=== PATIENT | male | born 1930 | race Caucasian/White ===

== ENCOUNTER → 2016-10-29 | Outpatient (CLI) | payer OTHER, BC | LOC: EDBD → BHFA 13:45 | PROVIDERS: ATTEND Internal Medicine Cardiovascular Disease | DX: I48.92 Unspecified atrial flutter (principal); I50.30 Unspecified diastolic (congestive) heart failure; I10 Essential (primary) hypertension; E78.5 Hyperlipidemia, unspecified ==

== ENCOUNTER → 2016-10-31 | Outpatient (CLI) | payer OTHER, BC | LOC: EDBD → BHFA 13:00 | PROVIDERS: ATTEND Internal Medicine Interventional Cardiology | DX: Z01.818 Encounter for other preprocedural examination (principal); I48.91 Unspecified atrial fibrillation | CPT/HCPCS: 78452; 93017; A9500; J2785 ==

== ENCOUNTER 2016-11-05 05:45 | Inpatient (IN) | payer OTHER, BC ==
--- NOTE | 2016-10-28 14:08 | GHP ---
[f rep st] PREOP HISTORY AND PHYSICAL DATE OF ADMISSION: 11/05/2016 He will be an a.m. admission for surgery on November 25, 2016. PROBLEM: Posttraumatic right hip arthritis. HISTORY OF PRESENT ILLNESS: The patient is 86 years old. He fell in May of 2015 and sustained a right pelvic fracture and a displaced right olecranon fracture. I operated on his right olecrano n fracture in June of 2015. There was an initial hardware failure and nonunion of the olecranon fracture. I had to reoperate, but eventually the fracture has healed. 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 This is very pain ful. I have put off doing surgery because of his age and overall medical condition. However, he is in a lot of pain which is affecting his ability to walk. He and his family have decided to go [facility] with a right total hip arthroplasty even though there is significant medical risk. PAST MEDICAL HISTORY: He is treated for gout and elevated cholesterol. He has type 1 diabetes. He has a pacemaker. He has had a mitral valve replacement. No history of cardiac stents, DVT, or hep atitis. He has sleep apnea and uses a CPAP machine. He has had bilateral total knee replacements. CURRENT MEDICATIONS: Allopurinol, omeprazole, simvastatin, Lantus SoloSTAR insulin, Pertzye, piogli tazone for diabetes. He takes long-acting metoprolol to control his heart rate and also for blood p ressure. He has been on 1 baby aspirin a day although he is stopping that in preparation for his [place] rgery. DRUG ALLERGIES: None. METAL ALLERGY: None. LATEX ALLERGY: None. SOCIAL HISTORY: The patient does not smoke cigarettes or drink alcohol. He is retired. He lives w ith his and daughter in their own home. PHYSICAL EXAMINATION: VITAL SIGNS: Height is 5 feet, weight 162 pounds, BMI 31.6. EYES: Conjunct ivae and sclerae are clear. He has had cataract surgery bilaterally. MOUTH: He has a partial uppe r denture and a full lower denture. CHEST: Clear. HEART: Regular rhythm. No murmurs. EXTREMITI ES: Pertinent findings limited to his right hip. He only had about 70 degrees of hip flexion, 20 d egrees of external rotation, internal rotation 0 degrees. IMAGING PROCEDURE: Recent films show a healed acetabular fracture. He has very severe erosion of h is femoral head. He only has about 1/3 of the femoral head remaining. He is approximately [address] There is some erosion of the superior acetabulum. IMPRESSION ON ADMISSION: 1. Status post right pelvic fracture with severe posttraumatic degenerative arthritis of his right hip. 2. Treatment for gout. 3. Insulin-dependent diabetes. 4. He has a pacemaker. 5. He has had a mitral valve replacement. 6. Sleep apnea. PLAN: He will undergo a right total hip arthroplasty. The surgery has been discussed with the zee ent and with members of his family multiple times over the past 12 months. He has severe pain which is limiting his quality of life and his ability to walk. I have explained to them that there are s ubstantial medical risks associated with the surgery. He feels like he is willing to accept the ris ks in order to get a less painful and more functional hip joint. All their questions have been answ ered, and he consents to surgery. /[id number]/MODL
[2016-11-05] MEDS ORDERED: DEXAMETHASONE 4 MG/ML VIAL IVP ONE (06:00)
[2016-11-05] MEDS ORDERED: TRANEXAMIC ACID IV ONE (06:00)
[2016-11-05] MEDS ORDERED: FAMOTIDINE 20 MG TAB PO ONE (06:00)
[2016-11-05] MEDS ORDERED: POVIDONE-IODINE 20 ML in SODIUM CL IRRIG SOLUTION 500 ML IRR ONE (06:00)
[2016-11-05] MEDS ORDERED: CEFAZOLIN 2 GM/DEXTR 100 ML IV ONE (06:00)
[2016-11-05] MEDS ORDERED: ACETAMINOPHEN 325 MG TAB PO ONE (06:00)
[2016-11-05] MEDS ORDERED: NS IV ONE (06:00)
[2016-11-05] MEDS ORDERED: CHLORHEXIDINE GLUC HIBICLENS 118 ML BTL TP ONE (06:00)
[2016-11-05] MEDS ORDERED: ROPI/epiNEPH/KETOROLAC JOINT COCKTAIL IU ONE (06:00)
[2016-11-05] MEDS ORDERED: LR 1,000 ML IV ONE (06:26)
[2016-11-05] MEDS ORDERED: LIDOCAINE 1% 5 ML SDV ID PRN (06:26)
[2016-11-05] MEDS ORDERED: ceFAZolin 1 GM/5 ML SYR ONE (06:52)
[2016-11-05] MEDS ORDERED: PROPOFOL 200 MG/20 ML VIAL ONE ×2 (07:29→08:37)
[2016-11-05] MEDS ORDERED: LIDOCAINE 2% 100 MG/5 ML SYR ONE (07:30)
[2016-11-05] MEDS ORDERED: PHENYLEPHRINE HCL 100 MCG/ML SYR ONE (07:51)
--- NOTE | 2016-11-05 09:28 | POSTOPPROG ---
Post Op Note Date of Operation: 11/05/16 Surgeon: Darwin Mercado Radio Frequency Technician: Bryce Anesthesiologist: Spike Anesthesia: IV Sedation, Spinal Post-op Diagnosis: right hip arthritis Procedure: R MARTINE Inf/Abcess present in the surg proc area at time of surgery?: No EBL: 100-500
[2016-11-05] MEDS ORDERED: METOCLOPRAMIDE 10 MG/2 ML VIAL IVP PRN (09:41)
[2016-11-05] MEDS ORDERED: oxyCODONE IR 5 MG TAB PO PRN (09:41)
[2016-11-05] MEDS ORDERED: BISACODYL 10 MG SUPP PR PRN (09:41)
[2016-11-05] MEDS ORDERED: PHARMACY PAIN CONSULT 1 EA MISC PRN (09:41)
[2016-11-05] MEDS ORDERED: ONDANSETRON DISINTEGRATING 4 MG TAB PO PRN (09:41)
[2016-11-05] MEDS ORDERED: diphenhydrAMINE 25 MG CAP PO PRN (09:41)
[2016-11-05] MEDS ORDERED: POLYETHYLENE GLYCOL 3350 17 GM PKT PO PRN (09:41)
[2016-11-05] MEDS ORDERED: CYCLOBENZAPRINE 10 MG TAB PO PRN (09:41)
[2016-11-05] MEDS ORDERED: PROMETHAZINE HCL 25 MG SUPPR PR PRN (09:41)
[2016-11-05] MEDS ORDERED: MAGNESIUM HYDROXIDE 30 ML UDCUP PO PRN (09:41)
[2016-11-05] MEDS ORDERED: LACTULOSE 20 GM/30 ML UDCUP PO PRN (09:41)
[2016-11-05] MEDS ORDERED: ONDANSETRON 4 MG/2 ML VIAL IVP PRN (09:41)
[2016-11-05] MEDS ORDERED: NS 500 ML IV PRN (09:41)
[2016-11-05] MEDS ORDERED: DIPHENOXYLATE/ATROPINE LOMOTIL 1 TAB PO PRN (09:41)
[2016-11-05] MEDS ORDERED: traMADol 50 MG TAB PO PRN (09:41)
[2016-11-05] MEDS ORDERED: TEMAZEPAM 15 MG CAP PO PRN (09:41)
--- NOTE | 2016-11-05 09:52 | SOAPPROG ---
SOAP Progress Note Assessment/Plan: Assessment: Dr. Hendricks will follow and manage DM. To [facility] on Fri. Plan: 11/05/16 09:52 Objective: Laboratory Results 11/05/16 07:01 ICD10 Worksheet Patient Problems: Problems Problem Status Onset Osteoarthritis of right hip Acute Chronic Disease Management/Transitional Care Program Active Closed right acetabular fracture Acute Fall on same level from tripping as cause of accidental injury Acute Fracture of right olecranon process Acute Pelvic fracture Acute
[2016-11-05] MEDS ORDERED: LR 1,000 ML IV SCH (10:00)
--- NOTE | 2016-11-05 10:50 | GOP ---
[f rep st] OPERATIVE REPORT DATE OF OPERATION: 11/05/2016 SURGEON: Darwin Mercado MD FIRE CONTROL TECHNICIAN B: JEFF Han. Bereket Diaz CFA. ANESTHESIA: Combination of Marcaine spinal and IV sedation. ANESTHESIOLOGIST: Franky Lala MD. PREOPERATIVE DIAGNOSIS: Right hip severe posttraumatic arthritis. POSTOPERATIVE DIAGNOSIS: Right hip severe posttraumatic arthritis. PROCEDURE PERFORMED: Right total hip arthroplasty, cobalt-chrome head on highly cross-linked polyet hylene cup liner, cemented stem. FINDINGS: DESCRIPTION OF PROCEDURE: The patient was given 2 g of IV Ancef preoperatively within 60 minutes of surgery. He also received IV tranexamic acid at a dose of 20 mg/kg. He was placed on the operatin g room table and given spinal anesthesia with Marcaine by Dr. Lala. He was then placed supine a nd given IV sedation. A Caceres catheter was not used. He wore a NASRIN stocking and SCD on the nonoper ative leg. He has chronic leg edema bilaterally. He was rolled to the left lateral decubitus posit ion. The position was secured with the pegboard table attachment. An axillary roll was used, and a ll pressure points were carefully padded. I was careful to lock his pelvis in a rigid vertical posi tion. His perineum was isolated with plastic adhesive drapes. The right hip and right lower extrem ity were prepped with ChloraPrep. They were draped free using sterile sheets, stockinette, and Ioba n plastic drape. I wrapped his right lower extremity with a 6-inch Ken wrap from the midthigh to th e foot. The World Health Organization time-out was performed to verify the correct surgical side and site an d the correct patient identity. The Hoven time-out was also performed. I made a 5-inch straight oblique posterolateral hip skin incision. Subcutaneous tissues were sharpl y divided, and hemostasis was obtained using electrocautery. His subcutaneous tissues were very abad matous and watery. He also bled considerably more than average. His fascia adriana was identified and split along the axis of its fibers. I curved posteriorly and proximally, and split the fascia of t he gluteus libia, and bluntly split the muscle fibers in line with their orientation. The Charnle y self-retaining retractor was inserted. His sciatic nerve was located, partially exposed, and prot ected throughout the procedure. The external rotators were difficult to identify. There was quite a bit of deformity from his previous fracture. He had significant erosion of his femoral head, and the whole femoral head and neck had migrated proximally. I was able to release the external rotator s as a single layer and tagged them and reflected posteriorly. His capsule was shortened and deform ed and could not be preserved. A smooth inch Steinmann pin was inserted vertically into the ilium, superior to the acetabulum. A 1/8-inch drill bit was inserted vertically into the greate r trochanter and parallel to the first pin. The distance between the 2 was measured for leg length reference. His femoral head was dislocated posteriorly. About 2/3 of his femoral head had been ero ded away. The femoral neck was osteotomized at the appropriate level and inclination. The remnant of his labrum was excised. There was a lot of granulation tissue and scar tissue in his acetabulum. He had a previous pelvic fracture, which involved the medial wall of his acetabulum. It appeared that fracture had healed. I prepared the femur first. This allowed me to bowling alley mechanic the amount of natural femoral neck anteversion . He had approximately 10-12 degrees of natural femoral neck anteversion. The canal was opened lat erally with a box chisel. I reamed and broached sequentially up to a size 14. I used a size 14 bro ach as a trial stem. I was careful to lateralize adequately. Appropriate retractors were inserted to expose the acetabulum. The acetabulum was reamed sequential ly up to 53 mm. I selected a 54 mm Khan and Nephew R3 cluster hole hemispherical shell. This was tapped securely into place in the proper degree of inclination and anteversion. I used the transver se acetabular ligament and other acetabular bony landmarks to help me properly orient the cup. I in serted 30 mm and a 25 mm supplemental fixation screws through the superior aspect of the acetabular shell. The third hole in the shell was filled with the friction fit dome hole cover. I also insert ed a screw in the dome hole plug for the insertion hole. I performed a series of trial reductions to determine length and stability. I concluded that the si ze 14 stem with the -3 mm neck length, with a 36 mm head and a 20-degree lip liner gave me the prope r combination of appropriate length and good anterior and posterior stability. He was 20-25 mm shor t preoperatively, and I was intentionally lengthening him. Lengthening him also created excellent s tability. The 20-degree lip Khan and Nephew R3 highly cross-linked polyethylene cup liner was inserted and ta pped securely into place. I chose the Khan and Nephew Synergy stem in a size 14. The canal was pr epared for cementing. It was thoroughly cleaned with pulsating lavage. A distal cement restrictor was inserted. The canal was packed with epinephrine-soaked sponge. A double batch of methylmethacr ylate cement with tobramycin was mixed. While it was still in a semi-liquid state, it was injected into the canal and pressurized. At the proper consistency, the size 14 Synergy cement stem was inse rted, and tapped securely into place. It was held in the proper position while the cement hardened. Excess cement was removed before it hardened. I did 1 final trial reduction with a -3 neck length, and concluded that was the proper length. The 36 mm Oxinium head with a -3 mm neck length was tapped securely onto the clean trunnion. The acetab ulum was irrigated and cleaned, and the hip was reduced 1 final time. He had excellent anterior and posterior stability and appropriate lengthening. 40 mL of the joint anesthetic cocktail were injected into the capsule, the deep musculature, and the subcutaneous tissues around the skin edges. The joint was thoroughly irrigated 1 final time with a dilute Betadine solution. The external rotators were repaired with #[address] ill holes in the greater trochanter. This provided a reasonably strong external rotator repair. I used a couple of #2 [id number] FiberWire sutures on the fascia adriana, followed by a running #2 b arbed Ethicon Stratafix PDO suture. The subcutaneous tissues were closed with a running 0 barbed Et hicon Stratafix Monoderm suture. The skin was closed with a running 3-0 barbed Ethicon Stratafix Mo noderm subcuticular suture. The skin edges were reapproximated and sealed with Dermabond glue. The wound was covered with a strip of Telfa, and everything was held in place with a piece of clear isael stic Tegaderm. A long leg NASRIN stocking was applied to his right lower extremity. He wore a stocking and SCD on the opposite leg during the procedure. An abduction pillow was placed between his knees. He was awake álvaro from anesthesia and rolled to the supine position on his [facility]. He was taken to PACU in satisfactory condition. There were no recognized intraoperative complications. The estimated bl ood loss was at least 500 mL. Throughout the procedure, he bled more than typical. I used a Khan and Nephew R3 hemispherical cluster hole acetabular shell with an outside diameter of 54 mm. The liner was a Khan and Nephew 20-degree lipped highly cross-linked liner with an inside diameter of 36 mm. The femoral component was a cemented Khan and Nephew standard offset Synergy st em in size 14. The femoral head was a Khan and Nephew Oxinium head with a -3 mm neck length and a 36 mm outside diameter. Yrn Wilkinson and Bereket Diaz acted as surgical assistants. Their assistance was a marko pollard. /[id number]/MODL
[2016-11-05] MEDS ORDERED: LIPASE PO SCH (12:00)
[2016-11-05] MEDS ORDERED: AMYLASE PO SCH (12:00)
[2016-11-05] MEDS ORDERED: PROTEASE PO SCH (12:00)
[2016-11-05] MEDS: PIOGLITAZONE HCL 15 MG TAB PO SCH (12:50)
[2016-11-05] MEDS: ACETAMINOPHEN 325 MG TAB PO SCH ×2 (12:50→17:57)
[2016-11-05] MEDS: TRANEXAMIC ACID 650 MG TAB PO SCH ×2 (14:11→22:06)
[2016-11-05] MEDS: ceFAZolin 2 GM/DEXTROSE 100 ML IV SCH ×2 (14:11→20:57)
[2016-11-05 17:00] LABS: HEMATOCRIT 28.5 % (40.0-51.0); HEMOGLOBIN 9.4 g/dL (13.7-17.5)
[2016-11-05] MEDS ORDERED: D50W 25 GM/50 ML SYR IVP PRN (17:47)
[2016-11-05] MEDS: INSULIN LISPRO 100 UNIT/ML SC SCH (17:57)
[2016-11-05] MEDS: PANCREAZE PO SCH (17:58)
--- NOTE | 2016-11-05 19:04 | SOAPPROG ---
SOAP Progress Note Assessment/Plan: Assessment:POst op GREER from fractured acetabulum plus aseptic necrosis of femoral head. AODM, ASCVD, Renal insufficincy. Dong very well. Plan: MOnitor glucose tonight. Recheck labs in AM. To SNF soon. 11/05/16 19:02 POst op Subjective: Doing well post op. COncerned about his blood sugar being too high. Objective: Vital Signs Temp Pulse Resp BP Pulse Ox 36.6 C 69 18 106/61 99 11/05/16 15:52 11/05/16 15:52 11/05/16 15:52 11/05/16 15:52 11/05/16 15:52 Laboratory Results 11/05/16 16:40 11/05/16 07:01 11/04/16 11/05/16 11/06/16 05:59 05:59 05:59 Intake Total 1988 Output Total 775 Balance 1213 Lungs clear. Oxygen sat good. COR RRR. No significant ankle edema beyond baseline. Glucose a bit up, sliding scale initiated ICD10 Worksheet Patient Problems: Problems Problem Status Onset Osteoarthritis of right hip Acute Chronic Disease Management/Transitional Care Program Active Closed right acetabular fracture Acute Fall on same level from tripping as cause of accidental injury Acute Fracture of right olecranon process Acute Pelvic fracture Acute
[2016-11-05] MEDS: FERROUS SULFATE 325 MG TAB PO SCH (20:57)
[2016-11-05] MEDS: ALLOPURINOL 100 MG TAB PO SCH (20:57)
[2016-11-05] MEDS: FAMOTIDINE 20 MG TAB PO SCH (20:57)
[2016-11-05] MEDS: SENNOSIDES/DOCUSATE SODIUM TAB PO SCH (20:57)
[2016-11-05] MEDS: ASCORBIC ACID 250 MG TAB PO SCH (20:57)
[2016-11-05] MEDS: ASPIRIN 325 MG TAB PO SCH (22:06)
[2016-11-06] MEDS: ACETAMINOPHEN 325 MG TAB PO SCH ×3 (01:26→11:50)
[2016-11-06 05:06] LABS: HEMATOCRIT 26.8 % (40.0-51.0); HEMOGLOBIN 8.9 g/dL (13.7-17.5); MEAN CELL HEMOGLOBIN 35.7 pg (27.9-34.1); MEAN CELL HEMOGLOBIN CONCENTR. 33.2 g/dL (32.4-36.7); MEAN CELL VOLUME 107.6 fL (81.5-99.8); RED BLOOD CELL COUNT 2.49 10^6/uL (4.40-6.38); RED CELL DISTRIBUTION WIDTH 16.7 % (11.5-15.2)
[2016-11-06 05:29] LABS: ALANINE AMINOTRANSFERASE 25 IU/L (21-72); ALBUMIN 2.3 g/dL (3.5-5.0); ALKALINE PHOSPHATASE 177 IU/L (38-126); ANION GAP 8 mEq/L (8-16); ASPARTATE AMINOTRANSFERASE 28 IU/L (17-59); BILIRUBIN,TOTAL 0.4 mg/dL (0.1-1.4); CALCIUM 7.9 mg/dL (8.5-10.4); CARBON DIOXIDE 19 mEq/l (22-31); CHLORIDE 106 mEq/L (97-110); CREATININE 2.2 mg/dL (0.7-1.3); GLOMERULAR FILTRATION RATE 28; GLUCOSE 176 mg/dL (70-100); POTASSIUM 4.7 mEq/L (3.5-5.2); SODIUM 133 mEq/L (134-144); TOTAL PROTEIN 4.9 g/dL (6.3-8.2)
[2016-11-06] MEDS: PANCREAZE PO SCH ×2 (08:19→11:50)
[2016-11-06] MEDS: SENNOSIDES/DOCUSATE SODIUM TAB PO SCH (08:19)
[2016-11-06] MEDS: PIOGLITAZONE HCL 15 MG TAB PO SCH (08:19)
[2016-11-06] MEDS: ASCORBIC ACID 250 MG TAB PO SCH (08:19)
[2016-11-06] MEDS: TRANEXAMIC ACID 650 MG TAB PO SCH (08:19)
[2016-11-06] MEDS: FAMOTIDINE 20 MG TAB PO SCH (08:20)
[2016-11-06] MEDS: FERROUS SULFATE 325 MG TAB PO SCH (08:20)
[2016-11-06] MEDS: INSULIN LISPRO 100 UNIT/ML SC SCH ×2 (08:20→11:51)
[2016-11-06] MEDS: ASPIRIN 325 MG TAB PO SCH (08:20)
[2016-11-06] MEDS: ALLOPURINOL 100 MG TAB PO SCH (08:20)
[2016-11-06] MEDS ORDERED: MULTIVITAMINS 1 EACH TAB PO SCH (09:00)
[2016-11-06] MEDS ORDERED: METOPROLOL SUCCINATE XR 25 MG TAB PO SCH (09:00)
[2016-11-06] MEDS ORDERED: PANTOPRAZOLE SODIUM 40 MG TAB PO SCH (09:00)
[2016-11-06] MEDS ORDERED: INSULIN GLARGINE 100 UNITS/ML SYRINGE SC SCH (09:00)
[2016-11-06] MEDS ORDERED: PRAVASTATIN SODIUM 20 MG TAB PO SCH (09:00)
[2016-11-06] MEDS ORDERED: NON-FORMULARY NEW DRUG (Omeprazole [Omeprazole] 20 MG) PO SCH (09:00)
[2016-11-06] MEDS ORDERED: NON-FORMULARY NEW DRUG (Simvastatin [Simvastatin] 10 MG) PO SCH (09:00)
[2016-11-06] MEDS ORDERED: MAGNESIUM OXIDE 400 MG TAB PO SCH (09:00)
--- NOTE | 2016-11-06 10:44 | SOAPPROG ---
SOAP Progress Note Assessment/Plan: Assessment: Dr. Hendricks will follow and manage DM. To [facility] on Fri. Plan: 11/05/16 09:52 11/06/16 10:43 Afebrile. Awake and alert. Up and chair. Taking a few steps around the room. Using urinal. H/H low but he is stable. Wound is dry. Sciatic nerve intact. Films look good. P: to [facility] today. Continue PT Objective: Vital Signs Temp Pulse Resp BP Pulse Ox 36.9 C 75 14 113/61 94 11/06/16 07:33 11/06/16 08:20 11/06/16 07:33 11/06/16 08:20 11/06/16 07:33 Laboratory Results 11/06/16 04:55 11/06/16 04:55 11/05/16 11/06/16 11/07/16 05:59 05:59 05:59 Intake Total 1988 Output Total 1200 Balance 788 ICD10 Worksheet Patient Problems: Problems Problem Status Onset Osteoarthritis of right hip Acute Chronic Disease Management/Transitional Care Program Active Closed right acetabular fracture Acute Fall on same level from tripping as cause of accidental injury Acute Fracture of right olecranon process Acute Pelvic fracture Acute
--- NOTE | 2016-11-06 10:52 | PDIAF ---
- Diagnosis Diagnosis: right MARTINE Code Status: Full Code - Medication Management Discharge Medications: Medications to Continue on Transfer Magnesium Oxide 400 mg PO DAILY 08/06/11 [Last Taken 10/22/16] Omeprazole 20 mg PO DAILY 08/06/11 [Last Taken 11/05/16] Simvastatin 10 mg PO DAILY 08/06/11 [Last Taken 11/03/16] Diclofenac Sodium [Voltaren Gel (*)] 1 clarissa TP DAILY PRN 06/13/15 [Last Taken 08/16] Lipase/Protease/Amylase [Jaquelin Rojas 16,000 Units Caps] 1 cap PO TIDMEAL [Last Taken 10/22/16] Metoprolol Succinate Xr [Toprol Xl 25 mg (*)] 25 mg PO DAILY 06/13/15 [Last Taken 11/05/16 05:00] Pioglitazone HCl [Actos 15mg (*)] 15 mg PO DAILY 06/13/15 [Last Taken 11/04/16] traMADol [Ultram 50 mg (*)] 50 mg PO Q6 PRN #0 tab 06/18/15 [Last Taken 11/04/16 ] Acetaminophen [Tylenol ES 500 mg (*)] 1,000 mg PO BID 10/03/16 [Last Taken 11/04] Allopurinol [Allopurinol 100 MG (*)] 100 mg PO BID 10/03/16 [Last Taken 04:30] Ascorbic Acid [Vitamin C 250 mg (*)] 250 mg PO BID 10/03/16 [Last Taken 11/04/16 ] Aspirin [Aspirin 81mg (*)] 81 mg PO DAILY 10/03/16 [Last Taken 11/05/16 04:30] Docusate Sodium [Colace 100 MG (*)] 100 mg PO BID PRN 10/03/16 [Last Taken 11/04] Ferrous Sulfate [Ferrous Sulf 325 MG (*)] 325 mg PO BID 10/03/16 [Last Taken 01/13] Insulin Glargine [Lantus 100 UNITS/ML (*)] 10 units SC DAILY 10/03/16 [Last Taken 11/05/16 05:00 7 units SQ] Multivitamins [Multivitamin (*)] 1 each PO DAILY 10/03/16 [Last Taken 10/22/16] Discharge Medications: Refer to the Discharge Home Medication list for PRN reason. - Orders Diet Recommendation: ADA 1800 consistent carb - Follow Up Care Current Providers and Referrals: Semaj Hendricks MD [Primary Care Provider] - Darwin Mercado MD [Medical Doctor] - 11/28/16 11:50 am
--- NOTE | 2016-11-06 10:57 | GDS ---
[f rep st] DISCHARGE SUMMARY ADMISSION DIAGNOSIS: Right hip severe posttraumatic arthritis. DISCHARGE DIAGNOSIS: Right hip severe posttraumatic arthritis. OPERATION PERFORMED: 11/05/2016, a right total hip arthroplasty. POSTOPERATIVE COMPLICATIONS: None. CONDITION ON DISCHARGE: Improved. DESCRIPTION OF HOSPITAL COURSE: The patient was admitted to the hospital on the morning of surgery. His admission white blood cell count was 5650. H and H 11.0 and 33.8. Platelet count 150,000. T he same day, under a combination of Marcaine, spinal anesthesia and IV sedation, he underwent a righ t total hip arthroplasty. I used a cemented femoral component. Postoperatively, he was treated wit h multimodal DVT prophylaxis, including rapid mobilization and aspirin. On the first postoperative day, his hemoglobin and hematocrit were 8.9 and 26.8. He was seen by Physical Therapy, and he did r easonably well with ambulation. By the time of discharge, he was afebrile, and his wound was clean and dry. DISPOSITION: The patient is transferred to [facility]. He may progress to full weightbearing on the right as tolerated. Use an abduction pillow in bed for 3 weeks. He will continue to use Tylenol for pain control. Use NASRIN stockings for 1 week. I will see him back in [facility] office on November 28, 2016. If there are any problems, he is to call me at the office. /[id number]/MODL
[2016-11-06 11:19] VITALS: BP 111/47; PULSE 81; RESP 16; TEMP 98.2; O2SAT 99
--- NOTE | 2016-11-06 12:31 | SOAPPROG ---
SOAP Progress Note Assessment/Plan: Assessment:POst op GREER from fractured acetabulum plus aseptic necrosis of femoral head. AODM, ASCVD, Renal insufficincy. Dong very well. Hemoglobin reduced but adequete, transfusion not required. Plan: To [facility] today. Follow labs at [facility] 11/05/16 19:02 POst op 11/06/16 12:32 Subjective: Doing very well. Pain is controlled although noticeable. Appetite good. Objective: Vital Signs Temp Pulse Resp BP Pulse Ox 36.8 C 81 16 111/47 L 99 11/06/16 11:18 11/06/16 11:18 11/06/16 11:18 11/06/16 11:18 11/06/16 11:18 Laboratory Results 11/06/16 04:55 11/06/16 04:55 11/05/16 11/06/16 11/07/16 05:59 05:59 05:59 Intake Total 1988 Output Total 1200 Balance 788 Lungs clear to asc. COR RRR. Edema stable. HGB acceptable at 8.9. Lytes and CR stable. Glucose under reasonable control ICD10 Worksheet Patient Problems: Problems Problem Status Onset Osteoarthritis of right hip Acute Chronic Disease Management/Transitional Care Program Active Closed right acetabular fracture Acute Fall on same level from tripping as cause of accidental injury Acute Fracture of right olecranon process Acute Pelvic fracture Acute
--- NOTE | 2016-11-06 12:35 | PDIAF ---
- Diagnosis Diagnosis: right MARTINE Code Status: Full Code - Medication Management Discharge Medications: Medications to Continue on Transfer Magnesium Oxide 400 mg PO DAILY 08/06/11 [Last Taken 10/22/16] Simvastatin 10 mg PO DAILY 08/06/11 [Last Taken 11/03/16] Diclofenac Sodium [Voltaren Gel (*)] 1 clarissa TP DAILY PRN 06/13/15 [Last Taken 08/16] Lipase/Protease/Amylase [Jaquelin Rojas 16,000 Units Caps] 1 cap PO TIDMEAL [Last Taken 10/22/16] Metoprolol Succinate Xr [Toprol Xl 25 mg (*)] 25 mg PO DAILY 06/13/15 [Last Taken 11/05/16 05:00] traMADol [Ultram 50 mg (*)] 50 mg PO Q6 PRN #0 tab 06/18/15 [Last Taken 11/04/16 ] Acetaminophen [Tylenol ES 500 mg (*)] 1,000 mg PO BID 10/03/16 [Last Taken 11/04] Ascorbic Acid [Vitamin C 250 mg (*)] 250 mg PO BID 10/03/16 [Last Taken 11/04/16 ] Aspirin [Aspirin 81mg (*)] 81 mg PO DAILY 10/03/16 [Last Taken 11/05/16 04:30] Docusate Sodium [Colace 100 MG (*)] 100 mg PO BID PRN 10/03/16 [Last Taken 11/04] Insulin Glargine [Lantus 100 UNITS/ML (*)] 10 units SC DAILY 10/03/16 [Last Taken 11/05/16 05:00 7 units SQ] Multivitamins [Multivitamin (*)] 1 each PO DAILY 10/03/16 [Last Taken 10/22/16] Acetaminophen [Tylenol 325mg (*)] 650 mg PO Q6HRS #0 tab 11/06/16 [Last Taken Unknown] Allopurinol [Allopurinol 100 MG (*)] 100 mg PO BID #0 tab 11/06/16 [Last Taken Unknown] Aspirin [Aspirin 325 mg (*)] 325 mg PO DAILY #0 tab 11/06/16 [Last Taken Unknown ] Ferrous Sulfate [Ferrous Sulf 325 MG (*)] 325 mg PO BID #30 tab 11/06/16 [Last Taken Unknown] Insulin Glargine [Lantus 100 UNITS/ML (*)] 10 units SC DAILY #0 ml 11/06/16 [ Last Taken Unknown] Insulin Lispro [humALOG LISPRO 100 units/ml (*)] 0 unit SC TIDMEAL #0 unit 11/06 [Last Taken Unknown] Lipase/Protease/Amylase [Pancreaze 16.8] 1 cap PO TIDMEAL #0 cap 11/06/16 [Last Taken Unknown] Ondansetron Odt [Zofran Odt 4 mg (*)] 4 mg PO Q4HRS PRN #15 tab 11/06/16 [Last Taken Unknown] Pantoprazole Sodium [Protonix 40mg (*)] 40 mg PO DAILY #0 tab 11/06/16 [Last Taken Unknown] Pioglitazone HCl [Actos 15mg (*)] 15 mg PO DAILY #0 tab 11/06/16 [Last Taken Unknown] Pravastatin Sodium [Pravachol] 20 mg PO DAILY #0 tab 11/06/16 [Last Taken Unknown] oxyCODONE IR [Oxycodone Ir (*)] 5 - 10 mg PO Q3HRS PRN #30 tab 11/06/16 [Last Taken Unknown] traMADol [Ultram 50 mg (*)] 50 mg PO Q6HRS PRN #30 tab 11/06/16 [Last Taken Unknown] Discharge Medications: Refer to the Discharge Home Medication list for PRN reason. - Orders Services needed: Physical Therapy, Occupational Therapy Diet Recommendation: ADA 1800 consistent carb - Labs/Radiology BMP Date: 11/07/16 CBC Date: 11/07/16 - Follow Up Care Current Providers and Referrals: Semaj Hendricks MD [Primary Care Provider] - Darwin Mercado MD [Medical Doctor] - 11/28/16 11:50 am
[2016-11-07] MEDS ORDERED: FAMOTIDINE 20 MG TAB PO SCH (09:00)
== END 2016-11-06 15:48 | DRG 470 ==
LOC: EDBD 05:45 → F3N 05:45
PROVIDERS: ADMIT Orthopaedic Surgery; ATTEND Orthopaedic Surgery
PROC: 0SR9049 Replacement of Right Hip Joint with Ceramic on Polyethylene Synthetic Substitute, Cemented, Open Approach (ICD-10-PCS; principal; 2016-11-05 07:15)
DX: M12.551 Traumatic arthropathy, right hip (principal); E10.9 Type 1 diabetes mellitus without complications; M10.9 Gout, unspecified; G47.30 Sleep apnea, unspecified; E78.00 Pure hypercholesterolemia, unspecified; Z96.653 Presence of artificial knee joint, bilateral; Z79.82 Long term (current) use of aspirin; Z79.4 Long term (current) use of insulin; Z95.2 Presence of prosthetic heart valve; Z95.0 Presence of cardiac pacemaker
CPT/HCPCS: 97110-GP; 97116-GP; 97161-GP; 97166-GO; 97530-GP; C1713; G8978-GP-CK; G8979-GP-CJ; G8987-GO-CL; G8988-GO-CL; G8989-GO-CL; J0171; J0690; J1100; J1815; J1885; J2001; J2370; J2704; J2795

== ENCOUNTER 2016-11-19 18:15 | Emergency (ER) | payer OTHER, BC ==
--- NOTE | 2016-11-19 18:33 | EDPHY ---
H & P Time Seen by Provider: 11/19/16 18:18 HPI/ROS: CHIEF COMPLAINT: Weight gain and hyperkalemia HISTORY OF PRESENT ILLNESS: The patient is an 86-year-old man who comes to the emergency department from rehab for a 20 lb weight gain since his hip surgery 2 weeks ago. Also his potassium was found to have gone from 5.6-5.8 over the last 3 days. The patient denies shortness of breath or chest pain. He states that his scrotum and penis or swollen. He also complains of mild leg swelling. No fevers. He was started today on Lasix 20 mg once a day. REVIEW OF SYSTEMS: Constitutional: denies: chills, fever, recent illness, recent injury EENTM: denies: blurred vision, double vision, nose congestion Respiratory: denies: cough, shortness of breath Cardiac: denies: chest pain, irregular heart rate, lightheadedness, palpitations Gastrointestinal/Abdominal: denies: abdominal pain, diarrhea, nausea, vomiting, blood streaked stools Genitourinary: denies: dysuria, frequency, hematuria, pain Musculoskeletal: denies: joint pain, muscle pain Skin: denies: lesions, rash, jaundice, bruising Neurological: denies: headache, numbness, paresthesia, tingling, dizziness, weakness Hematologic/Lymphatic: denies: blood clots, easy bleeding, easy bruising Immunologic/allergic: denies: HIV/AIDS, transplant EXAM: GENERAL: Well-appearing, well-nourished and in no acute distress. HEAD: Atraumatic, normocephalic. EYES: Pupils equal round and reactive to light, extraocular movements intact, sclera anicteric, conjunctiva are normal. ENT: TMs normal, nares patent, oropharynx clear without exudates. Moist mucous membranes. NECK: Normal range of motion, supple without lymphadenopathy or JVD. LUNGS: Breath sounds clear to auscultation bilaterally and equal. No wheezes rales or rhonchi. HEART: Regular rate and rhythm without murmurs, rubs or gallops. ABDOMEN: Soft, nontender, normoactive bowel sounds. No guarding, no rebound. No masses appreciated. BACK: No CVA tenderness, no spinal tenderness, step-offs or deformities EXTREMITIES: Normal range of motion, no pitting or edema. No clubbing or cyanosis. NEUROLOGICAL: Cranial nerves II through XII grossly intact. Normal speech, normal gait. 5/5 strength, normal movement in all extremities, normal sensation PSYCH: Normal mood, normal affect. SKIN: Warm, dry, normal turgor, no visible rashes or lesions. Source: Patient Exam Limitations: No limitations - Personal History Tetanus Vaccine Date: 2008 - Medical/Surgical History Hx Asthma: No Hx Chronic Respiratory Disease: No Hx Diabetes: Yes Hx Cardiac Disease: Yes Hx Renal Disease: No Hx Cirrhosis: No Hx Alcoholism: No Hx HIV/AIDS: No Hx Splenectomy or Spleen Trauma: No Other PMH: Valve replacement, pacemaker, bilateral knee surgery by Dr. Mercado, Diabetes,anemia,CRI, - Family History Significant Family History: No pertinent family hx - Social History Smoking Status: Never smoked Alcohol Use: None Drug Use: None Constitutional: Initial Vital Signs Temperature (C) 36.8 C 11/19/16 18:15 Heart Rate 84 11/19/16 18:15 Respiratory Rate 18 11/19/16 18:15 Blood Pressure 120/63 11/19/16 18:15 O2 Sat (%) 96 11/19/16 18:15 O2 Delivery Mode Room Air Allergies/Adverse Reactions: No Known Allergies Allergy (Verified 10/08/16 16:15) Home Medications: Medication Instructions Recorded Magnesium Oxide 400 mg PO DAILY 08/06/11 Simvastatin 10 mg PO DAILY 08/06/11 Diclofenac Sodium [Voltaren Gel 1 clarissa TP DAILY PRN 06/13/15 (*)] Lipase/Protease/Amylase [Pertzye 1 cap PO TIDMEAL 06/13/15 16,000 Units Caps] Metoprolol Succinate Xr [Toprol Xl 25 mg PO DAILY 06/13/15 25 mg (*)] traMADol [Ultram 50 mg (*)] 50 mg PO Q6 PRN #0 tab 06/18/15 Acetaminophen [Tylenol ES 500 mg 1,000 mg PO BID 10/03/16 (*)] Ascorbic Acid [Vitamin C 250 mg 250 mg PO BID 10/03/16 (*)] Aspirin [Aspirin 81mg (*)] 81 mg PO DAILY 10/03/16 Docusate Sodium [Colace 100 MG (*)] 100 mg PO BID PRN 10/03/16 Insulin Glargine [Lantus 100 10 units SC DAILY 10/03/16 UNITS/ML (*)] Multivitamins [Multivitamin (*)] 1 each PO DAILY 10/03/16 Acetaminophen [Tylenol 325mg (*)] 650 mg PO Q6HRS #0 tab 11/06/16 Allopurinol [Allopurinol 100 MG 100 mg PO BID #0 tab 11/06/16 (*)] Aspirin [Aspirin 325 mg (*)] 325 mg PO DAILY #0 tab 11/06/16 Ferrous Sulfate [Ferrous Sulf 325 325 mg PO BID #30 tab 11/06/16 MG (*)] Insulin Glargine [Lantus 100 10 units SC DAILY #0 ml 11/06/16 UNITS/ML (*)] Insulin Lispro [humALOG LISPRO 100 0 unit SC TIDMEAL #0 unit 11/06/16 units/ml (*)] Lipase/Protease/Amylase [Pancreaze 1 cap PO TIDMEAL #0 cap 11/06/16 16.8] Ondansetron Odt [Zofran Odt 4 mg 4 mg PO Q4HRS PRN #15 tab 11/06/16 (*)] Pantoprazole Sodium [Protonix 40mg 40 mg PO DAILY #0 tab 11/06/16 (*)] Pioglitazone HCl [Actos 15mg (*)] 15 mg PO DAILY #0 tab 11/06/16 Pravastatin Sodium [Pravachol] 20 mg PO DAILY #0 tab 11/06/16 oxyCODONE IR [Oxycodone Ir (*)] 5 - 10 mg PO Q3HRS PRN #30 tab 11/06/16 traMADol [Ultram 50 mg (*)] 50 mg PO Q6HRS PRN #30 tab 11/06/16 Furosemide [Lasix 40 MG (*)] 40 mg PO DAILY #10 tab 11/19/16 Medical Decision Making ED Course/Re-evaluation: 6:35 p.m. I discussed the case with Dr. Mason. Since the patient is asymptomatic and denying shortness of breath we agreed to simply recheck his potassium and get an EKG and start him on Lasix. Patient and family are agreeable with this. 7:10 p.m. the patient's potassium is improving. There are no concerning EKG abnormalities. He is asymptomatic. He and his family and Cardiology are all on board with starting him on Lasix at home and having him follow up with Dr. Quinn the next 2 days. Differential Diagnosis: Partial list of the Differential diagnosis considered include but were not limited to; edema, pulmonary edema, hyperkalemia and although unlikely based on the history and physical exam, I also considered CHF, DVT, PE. I discussed these differential diagnoses and the plan with the patient as well as the usual and expected course. The patient understands that the diagnosis is provisional and that in medicine we are not always correct and that further workup is often warranted. Usual and customary warnings were given. All of the patient's questions were answered. The patient was instructed to return to the emergency department should the symptoms at all worsen or return, otherwise to followup with the physician as we discussed. - Data Points Laboratory Results: Laboratory Results 11/19/16 18:34 11/19/16 18:34 Medications Given: Discontinued Medications Furosemide (Lasix Injection) 40 mg IVP EDNOW ONE Stop: 11/19/16 18:39 Last Admin: 11/19/16 19:25 Dose: 40 mg Departure - Departure Disposition: Home, Routine, Self-Care Clinical Impression: Hyperkalemia Edema Qualifiers: Edema type: unspecified Qualified Code(s): R60.9 - Edema, unspecified Condition: Fair Instructions: Hyperkalemia (ED), Edema (ED) Additional Instructions: Dr. Mason recommends that he follow up with Dr. Quinn in 2 days to recheck he potassium and edema levels. Referrals: Batsheva Quinn MD [Medical Doctor] - 1-2 days without fail Prescriptions: Furosemide [Lasix 40 MG (*)] 40 mg PO DAILY #10 tab
[2016-11-19] MEDS ORDERED: FUROSEMIDE 40 MG/4 ML VIAL IVP ONE (18:38)
[2016-11-19 18:42] LABS: % IMMATURE GRANULYOCYTES 0.7 % (0.0-1.1); ABSOLUTE IMMATURE GRANULOCYTES 0.04 10^3/uL (0.00-0.10); ADD DIFF? NO; ADD MORPH? NO; ADD SCAN? NO; ATYPICAL LYMPHOCYTE FLAG 0 (0-99); FRAGMENT RBC FLAG 10 (0-99); HEMATOCRIT 31.6 % (40.0-51.0); HEMOGLOBIN 10.1 g/dL (13.7-17.5); LEFT SHIFT FLG 0 (0-99); LIPEMIA HEMOLYSIS FLAG 80 (0-99); MEAN CELL HEMOGLOBIN 35.8 pg (27.9-34.1); MEAN CELL VOLUME 112.1 fL (81.5-99.8); MEAN PLATELET VOLUME 10.6 fL (8.7-11.7); PLATELET CLUMPS FLAG 0 (0-99); PLATELET COUNT 185 10^3/uL (150-400); RED BLOOD CELL COUNT 2.82 10^6/uL (4.40-6.38); RED CELL DISTRIBUTION WIDTH 18.8 % (11.5-15.2)
[2016-11-19 18:45] VITALS: RESP 18
--- NOTE | 2016-11-19 18:46 | CPEKG ---
Heart Rate: 80 RR Interval: 750 P-R Interval: 362 QRSD Interval: 82 QT Interval: 380 QTC Interval: 439 P [place]: 0 QRS [place]: 14 T Wave [place]: 13 EKG Severity - ABNORMAL ECG - EKG Impression: ATRIAL-PACED COMPLEXES EKG Impression: FIRST DEGREE AV BLOCK EKG Impression: LOW VOLTAGE IN FRONTAL LEADS EKG Impression: CONSIDER ANTERIOR INFARCT EKG Impression: Unchanged from previous Electronically Signed By: Bill Huang 19-Nov-2016 19:09:01
[2016-11-19 19:01] LABS: ANION GAP 7 mEq/L (8-16); CALCIUM 8.5 mg/dL (8.5-10.4); CARBON DIOXIDE 24 mEq/l (22-31); CHLORIDE 104 mEq/L (97-110); CREATININE 1.9 mg/dL (0.7-1.3); GLOMERULAR FILTRATION RATE 34; GLUCOSE 168 mg/dL (70-100); POTASSIUM 5.7 mEq/L (3.5-5.2); SODIUM 135 mEq/L (134-144)
[2016-11-19 19:50] VITALS: BP 115/66; PULSE 83; O2SAT 95
[2016-11-19 19:55] VITALS: TEMP 97.7
== END 2016-11-19 19:55 | disposition home or self-care (01) ==
LOC: EDUNIT#
DX: E87.5 Hyperkalemia (principal); R60.9 Edema, unspecified; E11.9 Type 2 diabetes mellitus without complications; Z79.4 Long term (current) use of insulin; Z79.82 Long term (current) use of aspirin; Z95.0 Presence of cardiac pacemaker
CPT/HCPCS: 93005; 96374; 99285; J1940

== ENCOUNTER 2016-11-21 14:39 | Inpatient (IN) | payer OTHER, BC ==
[2016-11-21] MEDS ORDERED: ONDANSETRON DISINTEGRATING 4 MG TAB PO PRN (15:48)
[2016-11-21] MEDS ORDERED: diphenhydrAMINE 25 MG CAP PO PRN (15:48)
[2016-11-21] MEDS ORDERED: ONDANSETRON 4 MG/2 ML VIAL IVP PRN (15:48)
--- NOTE | 2016-11-21 16:20 | CPEKG ---
Heart Rate: 75 RR Interval: 800 P-R Interval: 214 QRSD Interval: 130 QT Interval: 448 QTC Interval: 501 P [place]: 0 QRS [place]: -76 T Wave [place]: 91 EKG Severity - ABNORMAL ECG - EKG Impression: ATRIAL-VENTRICULAR DUAL-PACED RHYTHM EKG Impression: COMPARED WITH 11/19/2016, AV SEQUENTIAL PACING NOW PRESENT Electronically Signed By: Batsheva Quinn 21-Nov-2016 16:46:37
[2016-11-21 16:38] LABS: % IMMATURE GRANULYOCYTES 0.5 % (0.0-1.1); ABSOLUTE IMMATURE GRANULOCYTES 0.03 10^3/uL (0.00-0.10); ADD DIFF? NO; ADD MORPH? NO; ADD SCAN? NO; ATYPICAL LYMPHOCYTE FLAG 0 (0-99); FRAGMENT RBC FLAG 10 (0-99); HEMATOCRIT 30.9 % (40.0-51.0); HEMOGLOBIN 10.1 g/dL (13.7-17.5); LEFT SHIFT FLG 0 (0-99); LIPEMIA HEMOLYSIS FLAG 80 (0-99); MEAN CELL HEMOGLOBIN CONCENTR. 32.7 g/dL (32.4-36.7); MEAN CELL VOLUME 113.2 fL (81.5-99.8); MEAN PLATELET VOLUME 10.1 fL (8.7-11.7); PLATELET CLUMPS FLAG 0 (0-99); PLATELET COUNT 164 10^3/uL (150-400); RED BLOOD CELL COUNT 2.73 10^6/uL (4.40-6.38); RED CELL DISTRIBUTION WIDTH 18.8 % (11.5-15.2)
[2016-11-21 16:42] LABS: INR 1.06 (0.83-1.16); PROTIME(PATIENT) 13.7 SEC (12.0-15.0)
[2016-11-21 17:24] LABS: ALANINE AMINOTRANSFERASE 51 IU/L (21-72); ALKALINE PHOSPHATASE 298 IU/L (38-126); ANION GAP 8 mEq/L (8-16); ASPARTATE AMINOTRANSFERASE 43 IU/L (17-59); BILIRUBIN,TOTAL 0.6 mg/dL (0.1-1.4); CALCIUM 8.5 mg/dL (8.5-10.4); CARBON DIOXIDE 24 mEq/l (22-31); CHLORIDE 104 mEq/L (97-110); GLOMERULAR FILTRATION RATE 32; GLUCOSE 142 mg/dL (70-100); MAGNESIUM 2.1 mg/dL (1.6-2.3); SODIUM 136 mEq/L (134-144); TOTAL PROTEIN 5.9 g/dL (6.3-8.2)
[2016-11-21 17:27] LABS: TROPONIN I 0.022 ng/mL (0-0.034)
[2016-11-21 17:31] LABS: CREATINE KINASE-MB FRACTION 3.28 ng/mL (0-4.55)
[2016-11-21] MEDS ORDERED: NYSTATIN POWDER 15 GM BTL TP PRN (17:39)
[2016-11-21] MEDS ORDERED: DOCUSATE SODIUM 100 MG CAP PO PRN (17:39)
[2016-11-21] MEDS ORDERED: ENOXAPARIN 30 MG/0.3 ML SYR SC ONE (18:00)
--- NOTE | 2016-11-21 18:21 | SOAPPROG ---
SOAP Progress Note Assessment/Plan: Assessment: Plan: 11/21/16 18:21 marked fluid retention--weight reportedly up 20 lbs--will start with 20 mg IV lasix BID, potassium was elevated earlier in the week. CKD baseline Cr 1.6-2.0 h/o creatinine elevations anatomic cirrhotic appearing liver--no h/o etoh use anemia r/o DVT--preliminary negative. Will no check CTA due to CKD treatment dose of lovenox renally adjusted cellulitis--smoldering add ancef, wound care Subjective: The patient started having scrotal swelling last Friday, LUE started swelling at a similar time. LE's have been moderately swollen. He denies recent dietary changes, no unusual salt sources. He has been somewhat more short of breath. He has been able to walk [address] [facility] Objective: Vital Signs Temp Pulse Resp BP Pulse Ox 36.6 C 74 26 H 106/59 L 94 11/21/16 16:27 11/21/16 16:27 11/21/16 16:27 11/21/16 16:27 11/21/16 16:27 Laboratory Results 11/21/16 16:20 11/21/16 16:20 11/20/16 11/21/16 11/22/16 05:59 05:59 05:59 Output Total 125 Balance -125 PT 13.7 SEC (12.0-15.0) 11/21/16 16:20 INR 1.06 (0.83-1.16) 11/21/16 16:20 Gen: [place], [place] HEENT: no acute changes Lungs: diminished BS, soft tissue edema in abdomen and lateral lower chest regions Heart: RRR paced, EKG AV paced Abd + bs soft, NT, edema LUE 2-3+ edema BLE's moderate edema compressed by kristen wraps, now removed for US testing skin---right anterior patricia--red, warm, family states that his has been on going at some level for months ICD10 Worksheet Patient Problems: Problems Problem Status Onset Chronic Disease Management/Transitional Care Program Active Closed right acetabular fracture Acute Edema Acute Fall on same level from tripping as cause of accidental injury Acute Fracture of right olecranon process Acute Hyperkalemia Acute Osteoarthritis of right hip Acute Pelvic fracture Acute
[2016-11-21 19:08] LABS: COLOR YELLOW; LEUKOCYTE ESTERASE,URINE NEGATIVE (NEGATIVE); NITRITE,URINE NEGATIVE (NEGATIVE)
[2016-11-21] MEDS: PANCREAZE PO SCH (19:18)
[2016-11-21] MEDS: ACETAMINOPHEN 325 MG TAB PO PRN (19:18)
--- NOTE | 2016-11-21 19:44 | GHP ---
[f rep st] HISTORY AND PHYSICAL DATE OF ADMISSION: 11/21/2016 REASON FOR ADMISSION: Marked fluid retention. HISTORY OF PRESENT ILLNESS: The patient is an 86-year-old male, who had a relatively recent hip rep lacement. He was [facility]ed to a [facility] and has had a reported 20-pound weight gai n. He has been a bit more short of breath. He was seen at the ER on Friday. Potassium was seen t o be 5.8. Fluid retention was noted. He was given a dose of IV Lasix and sent back home. He was s een by Dr. Batsheva Quinn, levers lace machine operator, today who looked at his current symptomatology and fluid retent ion and suggested hospitalization. He denies chest pain or sense of palpitations. He has had most of his fluid retention more around his abdomen, his left extremity, his scrotum and his legs. He de nies acute abdominal pain. He states he has been eating well. He denies any unusual salt inclusion in his diet. He is recovering well from his hip replacement and is able to ambulate fairly good di stances in the [facility] setting. PAST MEDICAL HISTORY: Chronic kidney disease with a history of rather severe creatinine elevations in the past. Intermittent atrial fibrillation. Given multiple risks and fall history, he has been on aspirin for anticoagulation. Hypogonadism. Type 2 diabetes. Lower blood pressure. Decondition ing. Diffuse arthritis. Anemia. Sleep apnea on CPAP therapy. Constipation. Prior heart surgery. ALLERGIES: No known drug allergies. MEDICATIONS: Noted per chart. Actos 15 mg has been on his regular regimen. He has been on Lasix 4 0 mg daily, I presume for the last couple of days given his fluid retention. PAST SURGICAL HISTORY: July: Right hip replacement. SOCIAL HISTORY: He has excellent family support. He does not smoke or drink. He is generally acti ve with the limits of what his arthritis can do. FAMILY HISTORY: Father from aneurysm in 1983. Mom at 72 of complications from diabetes. His siblings with heart disease. IMMUNIZATIONS: Up to date. REVIEW OF SYSTEMS: GENERAL: No unusual challenges outside of fluid retention. He denies fever, ch ills or sweats. HEENT: No headaches. No acute visual changes. Mouth is somewhat dry, which is no t an unusual finding. LUNGS: Shortness of breath without cough, wheeze or congestion. HEART: No chest pain or palpitations. GASTROINTESTINAL: Normal appetite. No nausea or vomiting. No gross c hanges in bowel pattern. Centralized fluid retention. : Scrotal edema is noted. No acute urina ry symptoms. LOWER EXTREMITIES: Right has had some level of wound challenge. Erythema, which waxe s and wanes. His family says it is probably redder now than it has been in a while. This is mildly tender for the patient. PHYSICAL EXAMINATION: VITAL SIGNS: Blood pressure 106/69, heart rate 74, respiratory rate 26, satu ration 94% room air. Temperature 36.6. GENERAL: Pleasant, hard of hearing, older male resting com fortably in bed. HEENT: Eyes are bright. Oropharynx with evidence of prior dental work. NECK: W ithout masses. LUNGS: Markedly diminished breath sounds. CHEST: Evidence of edema on the lateral chest liu in the dependent positioning. HEART: Regular rate and rhythm. No current murmur. EK G paced sinus rhythm. Pacemaker, left chest wall. ABDOMEN: Positive bowel sounds. Central adipos ity. Soft, nontender. Moderate edema is suggested. : Scrotum is edematous. EXTREMITIES: Left upper extremity with 2 to 3+ edema. Heavy per patient's description. 2/4 radial pulses bilaterall y. 2/4 PT pulses bilaterally. Lower extremities with 2+ edema. Evidence of some reduction based o n having his feet in recent Ken bandage wraps. SKIN: Moderate erythema and warmth on the anterior right patricia. A small area of wound dressing is noted, which is on his right anterior patricia as well. LABORATORY DATABASE: Sodium 136, potassium 5.0, BUN 69, creatinine 2.0, glucose 142, alkaline phosp hate 298. BNP 4750. Troponin, CK-MB are normal. Albumin 3.0, total protein 5.9. INR 1.06. CBC: White count 5.96, hemoglobin 10.1, platelets 164. Chest x-ray is pending. Official report on the upper extremity and lower extremity Doppler is pendi ng. Preliminary reports suggest no clear evidence of large vein thrombosis. ASSESSMENT: 1. Marked edema, recent hip surgery, chronic kidney disease, anemia. We will start on IV Lasix b.i .d. Follow his creatinine closely. We will recommend daily weights. We will treat empirically for the potential of venous thrombotic event. He will have therapeutic dose of Lovenox suggested with Pharmacy's help given his age and creatinine. 2. Probable mild cellulitis, right anterior patricia. We will obtain a wound care consult in the [facility]. We will start renally adjusted Ancef. Adjust therapy based on response. 3. Anemia. Check iron level. We will give IV iron if iron levels confirmed to be low. 4. Hypoalbuminemia. We will stress the importance of improving protein quality of diet. 5. Diabetes. Clinically stable. We will follow. 6. Marked edema. We will check daily weights and follow progress. Hopefully, there is a fairly pr ompt reduction. Given the complexity of the patient's current findings and medical history, it is anticipated he melony l stay more than 2 midnights. /[id number]/MODL
[2016-11-21] MEDS ORDERED: ENOXAPARIN 30 MG/0.3 ML SYR SC SCH (21:00)
[2016-11-21] MEDS: FUROSEMIDE 20 MG/2 ML VIAL IVP SCH (21:53)
[2016-11-21] MEDS: ceFAZolin 0.5 GM in D5W 50 ML IV SCH (21:54)
[2016-11-21] MEDS: traMADol 50 MG TAB PO PRN (21:55)
[2016-11-21] MEDS: ALLOPURINOL 100 MG TAB PO SCH (21:56)
[2016-11-21] MEDS: FERROUS SULFATE 325 MG TAB PO SCH (21:56)
[2016-11-21] MEDS: PRAVASTATIN SODIUM 20 MG TAB PO SCH (21:56)
[2016-11-21] MEDS ORDERED: PANCREAZE PO SCH (22:00)
[2016-11-22] MEDS: traMADol 50 MG TAB PO PRN (03:40)
[2016-11-22 04:49] LABS: ANION GAP 9 mEq/L (8-16); CALCIUM 8.1 mg/dL (8.5-10.4); CARBON DIOXIDE 24 mEq/l (22-31); CHLORIDE 105 mEq/L (97-110); GLOMERULAR FILTRATION RATE 32; GLUCOSE 149 mg/dL (70-100); POTASSIUM 4.7 mEq/L (3.5-5.2); SODIUM 138 mEq/L (134-144)
[2016-11-22] MEDS: FUROSEMIDE 20 MG/2 ML VIAL IVP SCH ×2 (08:13→15:07)
[2016-11-22] MEDS: METOPROLOL SUCCINATE XR 25 MG TAB PO SCH (08:13)
[2016-11-22] MEDS: ENOXAPARIN 60 MG/0.6 ML SYR SC SCH (08:13)
[2016-11-22] MEDS: INSULIN GLARGINE 100 UNITS/ML SYRINGE SC SCH (08:14)
[2016-11-22] MEDS: FERROUS SULFATE 325 MG TAB PO SCH ×2 (08:14→21:11)
[2016-11-22] MEDS: ASPIRIN 325 MG TAB PO SCH (08:14)
[2016-11-22] MEDS: ALLOPURINOL 100 MG TAB PO SCH ×2 (08:14→21:11)
[2016-11-22] MEDS: PANCREAZE PO SCH ×3 (08:14→18:12)
[2016-11-22] MEDS: MULTIVITAMINS 1 EACH TAB PO SCH (08:14)
[2016-11-22] MEDS: MAGNESIUM OXIDE 400 MG TAB PO SCH (08:14)
[2016-11-22] MEDS: ceFAZolin 0.5 GM in D5W 50 ML IV SCH ×2 (08:14→21:11)
--- NOTE | 2016-11-22 08:36 | SOAPPROG ---
SOAP Progress Note Assessment/Plan: Assessment: Plan: 11/21/16 18:21 marked fluid retention--weight reportedly up 20 lbs--will start with 20 mg IV lasix BID, potassium was elevated earlier in the week. CKD baseline Cr 1.6-2.0 h/o creatinine elevations anatomic cirrhotic appearing liver--no h/o etoh use anemia r/o DVT--preliminary negative. Will no check CTA due to CKD treatment dose of lovenox renally adjusted cellulitis--smoldering add ancef, wound care 11/22/16 08:36 fluid retention--improving, weight down 1 kg last night CKD stable--follow labs closely anemia with fe def--add iv iron cellulitis--looks improved this am, wound care pending s/p RTH--PT/OT and ambulation suspected VTE--US negative, LUE with marked asymmetric swelling, continue to renally adjusted treatment dose lovenox for now Subjective: The patient feels ok. No new complaints. Urinated every 1-2 hours last night. Wants to walk. Objective: Vital Signs Temp Pulse Resp BP Pulse Ox 36.8 C 82 20 118/63 91 L 11/22/16 03:53 11/22/16 08:13 11/22/16 03:53 11/22/16 08:13 11/22/16 03:53 Laboratory Results 11/21/16 16:20 11/22/16 03:36 11/21/16 11/22/16 11/23/16 05:59 05:59 05:59 Intake Total 310 Output Total 1495 Balance -1185 PT 13.7 SEC (12.0-15.0) 11/21/16 16:20 INR 1.06 (0.83-1.16) 11/21/16 16:20 Gen: bright, pleasant Lungs: diminished but stable BS Heart: paced RRR ABd + bs soft lateral edema LUE: hand edema decreasing, elbow still quite full LE's reduced edema RLE wound/cellulitis--less erythema this am US LE's no DVT CXR stable BUN/Cr stable ICD10 Worksheet Patient Problems: Problems Problem Status Onset Chronic Disease Management/Transitional Care Program Active Closed right acetabular fracture Acute Edema Acute Fall on same level from tripping as cause of accidental injury Acute Fracture of right olecranon process Acute Hyperkalemia Acute Osteoarthritis of right hip Acute Pelvic fracture Acute
[2016-11-22] MEDS ORDERED: Herbals/Supplements -Info Only PO SCH (09:00)
[2016-11-22] MEDS ORDERED: FUROSEMIDE 40 MG TAB PO SCH (09:00)
--- NOTE | 2016-11-22 09:28 | WOCRNPDOC ---
WOCRN Advanced Assessment Note - Skin Integrity Problem, Advanced Assess Right Posterior Hip Surgical Wound/Incision Dressing Type: Open to Air Closure Description: Approximated Exudate Amount: None Exudate Characteristic(s): None Rubi Wound Tissue: Swollen (edema), Intact Rubi Wound Swelling: Moderate Skin Integrity Problem Comment: Incision on R hip well-approximated w/ no erythema or exudate noted. Patient has significant non-pitting edema to surrounding tissues and throughout lower ex, but no c/o pain. Wound care does not need to monitor this site ongoing. Right Lower Leg Venous Stasis Ulcer Dressing Type: Alginate, Allevyn Life Dressing Description: Clean/Dry, Intact Exudate Amount: Scant Exudate Color: Clear Exudate Characteristic(s): Serous Integumentary Issue Intervention: Visualized Under Dressing Rubi Wound Tissue: Erythema, Swollen Rubi Wound Swelling: Moderate Wound Bed Color: Brown, Red Wound Bed Constitution: Smooth Tissue (100%, in posterior wound bed.), Scab (on anterior wound) Wound Edges: Epithelizing Site Odor: None Site Measurement - Head-to-Toe Length X Width X Depth (cm): Anterior RLE: 0.3cmx0.2cmx scab. Posterior: 0.5cmx0.2cmx0.1cm Pulse Location & Description: +1 DP Peripheral Edema Location & Description: +1 pitting edema throughout RLE. Skin Integrity Problem Comment: Two discrete wounds on RLE, one anteriorly and one posteriorly. Patient reports that these are chronic, and he has had them for "a while." No other venous changes noted in RLE suggesting venous insufficiency; however, patient presently has +1 pitting edema to this extremity. Anterior wound is scabbed, w/ no exudate noted. Posterior wound is 100% smooth tissue, scant yellow/clear exudate, w/ epithelializing margins. Patient's entire RLE is edematous (+1) and tender. There is erythema from ankle to below the knee, and some reports of tenderness w/ palpation. However, there is also the same pattern of erythema on the other leg, and there is no noticeable increased warmth in the RLE. Wound recovered, and orders written for Silvasorb and foam dressing. Wound care will follow up with patient again on Wednesday 11/29 if he remains inpatient.
[2016-11-22] MEDS: SODIUM FERRIC GLUCONAT/SUCROSE 125 MG in NS 100 ML IV SCH (09:59)
--- NOTE | 2016-11-22 10:15 | PDCARPN ---
Cardiology Progress Note Chief Complaint: CHF Assessment/Plan: Assessment: Alfred is an 86-year-old male with recent THR with Dr. Mercado 11/05 and had discharged to [facility]. Over the past couple of weeks he has had significant weight gain of 10 kg and profound lower extremity edema as well as scrotal edema. He has also noticed left upper extremity swelling. He does report shortness of breath when he bends over. He denies angina. He has had some venous stasis ulcers on his legs that are now worse. #. biventricular failure: IV lasix initiated still appears quite fluid overloaded with JVD, bilateral crackles, peripheral edema, abdominal distension has put out 1 liter already with 3 kg weight loss will repeat echo to r/o LV and RV systolic dysfunction on BB likely not on ACEi 2/2 renal dysfunction #. CKD: Cr stable at 2 #. hyperkalemia: seen in ED on 11/19 but K normal currently #. 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 PAF/fl: last pacer check 10/17 without any arrhythmias deemed unsuitable candidate for full AC due to history of falls and bleeding #. DM: continue insulins under direction of JEFF Lamar #. htn: BP appears controlled #. VERNA: CPAP #. anemia: per IM #. cellulitis: per IM #. edema/asymmetric arm swelling and leg swelling: Lower ext dopplers neg will likely warrant UE doppler as well Plan: - Continue IV lasix until more euvolemic 11/22/16 11:35 Subjective: Still short of breath with movements. No cp. No dyspnea at rest. Objective: Vital Signs (8 Hrs) Temp Pulse Resp BP Pulse Ox 11/22/16 08:13 82 118/63 11/22/16 07:55 98.1 F 69 16 109/55 L 90 L 11/22/16 03:53 98.2 F 82 20 118/63 91 L Intake/Output (24 Hrs) 11/21/16 11/22/16 11/23/16 05:59 05:59 05:59 Intake Total 310 Output Total 1495 Balance -1185 Intake: Oral (ml) 250 IV Infused (ml) 60 ceFAZolin 0.5 gm In D5w 60 50 ml @ 200 mls/hr IV Q12HRS ERVIN Rx#:[id number] Output: Urine (ml) 1495 Urinal 1495 Other: Weight 75.7 kg Result Diagrams: 11/21/16 16:20 11/22/16 03:36 Cardiac Labs: Cardiac Lab Results (72 Hrs) 11/21/16 16:20 CK-MB (CK-2) Fraction 3.28 Troponin I 0.022 EKG: AV paced Telemetry: SR/ some paced V beats - Physical Exam Constitutional: no apparent distress Eyes: anicteric sclera Ears, Nose, Mouth, Throat: no oral ulcers Cardiovascular: regular rate and rhythm, systolic murmur Respiratory: reduced air movement, inspiratory crackles Gastrointestinal: normoactive bowel sounds, no tenderness, other (quite distended through abdomen) Skin: erythema, other (2+ edema to thighs) Neurologic: AAOx3 Psychiatric: cooperative, interactive ICD10 Worksheet Patient Problems: Problems Problem Status Onset Chronic Disease Management/Transitional Care Program Active Closed right acetabular fracture Acute Edema Acute Fall on same level from tripping as cause of accidental injury Acute Fracture of right olecranon process Acute Hyperkalemia Acute Osteoarthritis of right hip Acute Pelvic fracture Acute
--- NOTE | 2016-11-22 14:49 | ECHO ---
[id number] + + [address] : : [place] [address] : : [phone] + Adult Echocardiographic Report + -------+ :Name: DAFNE ROGEL CStudy Date: 11/22/2016 01:18 PM : : Hospital Admission Number: [id number] Locati on: 209: :: 1930 Gender: Male Height: 59 in : :Age: 86 yrs Race: WH Weight: 166 lb : :Reason For Study: CHF weight gain : : BSA: 1.7 meter s2 : :History: h/o MVR : + -------+ MMode/2D Measurements \T\ Calculations IVSd: 1.3 cm RVDd: 2.7 cm FS: 33.2 % Ao root diam: LVPWd: 1.3 cm LVIDd: 3.7 cm EDV(Teich): 3.1 cm LVIDs: 2.5 cm 57.2 ml LA dimension: ESV(Teich): 5.2 cm 21.3 ml EF(Teich): 62.7 % LVLd ap4: 8.1 cm SV(MOD-sp4): EDV(MOD-sp4): 45.0 ml 71.0 ml LVLs ap4: 6.6 cm ESV(MOD-sp4): 26.0 ml EF(MOD-sp4): 63.4 % Normal Measurement Values: + + :LVIDd (3.5-5.7cm) IVSd (0.6-1.1cm) LVPWd (0.6-1.1cm) Aortic Root (2.0-3.7cm)Left Atrium (1.5-4.0cm): :LV Vol(d) (76-115ml) LV Vol(s) (29-48ml) Ejec Fraction (50-65%)PV Gamaliel (0.6- 1.2m/s) TV Gamaliel (0.4-1.0m/s) : :MV E Gamaliel (0.8-1.0m/s)MV A Gamaliel (0.3-1.0m/s)LVOT Gamaliel (0.7-1.2m/s) Asc Ao Gamaliel ( 0.9-1.8m/s) : + + Doppler Measurements \T\ Calculations MV V2 mean: MV P1/2t max gamaliel: Ao V2 max: LV V1 max: 93.2 cm/sec 165.1 cm/sec 136.5 cm/sec 83.4 cm/sec MV mean PG: MV P1/2t: 64.5 msec Ao max PG: LV V1 max P.0 mmHg MVA(P1/2t): 3.4 cm2 7.5 mmHg 2.8 mmHg MV V2 VTI: MV dec slope: Ao mean PG: LV V1 mean P.3 cm 4.1 mmHg 1.5 mmHg 749.0 cm/sec2 Ao V2 mean: LV V1 mean: 98.6 cm/sec 58.9 cm/sec Ao V2 VTI: 24.0 cmLV V1 VTI: 17.6 cm PA V2 max: TR max gamaliel: 85.3 cm/sec 270.2 cm/sec PA max PG: TR max P.2 mmHg 2.9 mmHg RAP systole: 10.0 mmHg RVSP(TR): 39.2 mmHg Left Ventricle The left ventricle is normal in size and function. There is mild concentric left ventricular hypertrophy. Ejection Fraction = 65%. Diastolic dysfunction indeterminate due to MVR. No regional wall motion abnormalities noted. Right Ventricle The right ventricle is normal in size and function. Atria The left atrium is moderately dilated. Right atrial size is normal. A dilated inferior vena cava suggests increased right atrial pressure. Known PFO. Mitral Valve S/P Bioprosthetic MVR. Mean gradient across the MVR is 4mmHg which is within normal limits for this type of valve. There is no mitral regurgitation noted. Tricuspid Valve The tricuspid valve is normal in structure and function. There is no tricuspid stenosis. There is mild tricuspid regurgitation. Right ventricular systolic pressure is 39mmHg. There is Doppler evidence for mild pulmonary hypertension. Aortic Valve The aortic valve is trileaflet. Mild aortic sclerosis with normal leaflet mobility. There is no aortic stenosis. Trace aortic regurgitation. Pulmonic Valve The pulmonic valve is not well visualized. Great Vessels The aortic root is normal size. Pericardium/Pleural There is no pericardial effusion. Conclusion A two-dimensional transthoracic echocardiogram with M-mode and Doppler was performed. The left ventricle is normal in size and function. Ejection Fraction = 65%. Normal wall motion. There is mild concentric left ventricular hypertrophy. The left atrium is moderately dilated. S/P Bioprosthetic MVR. Mean gradient across the MVR is 4mmHg which is within normal limits for this type of valve. There is mild tricuspid regurgitation. Mild aortic sclerosis with normal leaflet mobility. Trace aortic regurgitation. Right ventricular systolic pressure is 39mmHg. Dilated IVC. Final Reading Physician: Ronnell Swanson signed on 11/22/2016 02:48 PM Ordering Physician: Meliza Benjamin Performed By: Millie Knott
[2016-11-22] MEDS: PRAVASTATIN SODIUM 20 MG TAB PO SCH (21:11)
[2016-11-23 04:11] LABS: ANION GAP 6 mEq/L (8-16); CARBON DIOXIDE 26 mEq/l (22-31); CHLORIDE 103 mEq/L (97-110); CREATININE 1.9 mg/dL (0.7-1.3); GLOMERULAR FILTRATION RATE 34; GLUCOSE 106 mg/dL (70-100); POTASSIUM 4.8 mEq/L (3.5-5.2); SODIUM 135 mEq/L (134-144)
[2016-11-23] MEDS: ALLOPURINOL 100 MG TAB PO SCH ×2 (08:35→21:12)
[2016-11-23] MEDS: MULTIVITAMINS 1 EACH TAB PO SCH (08:35)
[2016-11-23] MEDS: METOPROLOL SUCCINATE XR 25 MG TAB PO SCH (08:35)
[2016-11-23] MEDS: MAGNESIUM OXIDE 400 MG TAB PO SCH (08:35)
[2016-11-23] MEDS: PANCREAZE PO SCH ×3 (08:35→16:36)
[2016-11-23] MEDS: FERROUS SULFATE 325 MG TAB PO SCH ×2 (08:35→21:12)
[2016-11-23] MEDS: ASPIRIN 325 MG TAB PO SCH (08:35)
[2016-11-23] MEDS: ENOXAPARIN 60 MG/0.6 ML SYR SC SCH (08:35)
[2016-11-23] MEDS: INSULIN GLARGINE 100 UNITS/ML SYRINGE SC SCH (08:36)
[2016-11-23] MEDS: FUROSEMIDE 20 MG/2 ML VIAL IVP SCH ×2 (08:36→16:35)
[2016-11-23] MEDS: ceFAZolin 0.5 GM in D5W 50 ML IV SCH ×2 (08:47→21:12)
[2016-11-23] MEDS: SODIUM FERRIC GLUCONAT/SUCROSE 125 MG in NS 100 ML IV SCH (08:47)
--- NOTE | 2016-11-23 10:19 | SOAPPROG ---
SOAP Progress Note Assessment/Plan: Assessment:Edema. Redness, RO cellulitis. Good cardiac function. Some renal compromise . AODM. Plan:Continue withi diuresis. Not ready for DC yet. Cont IV diuretic. 11/23/16 10:18 Subjective: No complaints. Ambulating with walker. Still with significant leg swelling. Objective: Vital Signs Temp Pulse Resp BP Pulse Ox 36.9 C 91 20 108/51 L 88 L 11/23/16 06:53 11/23/16 07:55 11/23/16 06:53 11/23/16 06:53 11/23/16 07:55 Laboratory Results 11/21/16 16:20 11/23/16 03:25 11/22/16 11/23/16 11/24/16 05:59 05:59 05:59 Intake Total 310 780 Output Total 1495 2235 Balance -1185 -1455 PT 13.7 SEC (12.0-15.0) 11/21/16 16:20 INR 1.06 (0.83-1.16) 11/21/16 16:20 4+ swelling R leg, 3+ left. BUN slightly elevated. Mild redness around dressing on RLE. Lungs clear. ECho reviewed. ICD10 Worksheet Patient Problems: Problems Problem Status Onset Chronic Disease Management/Transitional Care Program Active Closed right acetabular fracture Acute Edema Acute Fall on same level from tripping as cause of accidental injury Acute Fracture of right olecranon process Acute Hyperkalemia Acute Osteoarthritis of right hip Acute Pelvic fracture Acute
--- NOTE | 2016-11-23 10:28 | SOAPPROG ---
SOPERCY Progress Note Assessment/Plan: 1. Diastolic CHF - Pt admitted with acute diastolic CHF. Echocardiogram with preserved LV function and normally functioning bioprosthetic mitral valve. BNP elevated at 4750. Pt diuresed approximately 11lbs since admit and 2 lbs overnight. Pt continues to have ABDUL, orthopnea, and lower extremity edema. --> Continue gentle diuresis with goal loss over 24 hrs at 1 to 1.5 L --> Continue metoprolol --> No GALILEA or ARB secondary to renal insufficiency. 2. CKD - Cr stable at 2 3. 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 Recent echocardiogram with normally functioning bioprosthesis. 4. PAF - Pt has a history of PAF. No evidence of A-fib on last pacer check (). Telemetry monitoring with sinus rhythm, paced rhythm, and episodic irregular rhythm suggestive of frequent PACs vs PAF. --> Will try to capture episode with EKG --> Consider repeat pacemaker check --> Continue metoprolol and lovenox. 5. DM 6. HTN - BP appears controlled 7. VERNA - CPAP Subjective: No chest pain + dyspnea at baseline and increased when bending over + orthopnea NO PND limited ambulation Telemetry with sinus rhythm, paced rhythm, PACs vs PAF Objective: Vital Signs Temp Pulse Resp BP Pulse Ox 36.9 C 91 20 108/51 L 88 L 11/23/16 06:53 11/23/16 07:55 11/23/16 06:53 11/23/16 06:53 11/23/16 07:55 Laboratory Results 11/21/16 16:20 11/23/16 03:25 11/22/16 11/23/16 11/24/16 05:59 05:59 05:59 Intake Total 310 780 Output Total 1495 2235 Balance -1185 -1455 PT 13.7 SEC (12.0-15.0) 11/21/16 16:20 INR 1.06 (0.83-1.16) 11/21/16 16:20 Physical Exam - Physical Exam General Appearance: alert, mild distress Neck: other (JVD) Cardiac/Chest: regular rate, rhythm, systolic murmur Abdomen: soft, No non-tender Extremities: pedal edema Neuro/Psych: alert ICD10 Worksheet Patient Problems: Problems Problem Status Onset Chronic Disease Management/Transitional Care Program Active Closed right acetabular fracture Acute Edema Acute Fall on same level from tripping as cause of accidental injury Acute Fracture of right olecranon process Acute Hyperkalemia Acute Osteoarthritis of right hip Acute Pelvic fracture Acute
[2016-11-23] MEDS: PANTOPRAZOLE SODIUM 40 MG TAB PO SCH (11:13)
[2016-11-23] MEDS: PRAVASTATIN SODIUM 20 MG TAB PO SCH (21:12)
[2016-11-23] MEDS: traMADol 50 MG TAB PO PRN (21:12)
[2016-11-24] MEDS: oxyCODONE IR 5 MG TAB PO PRN ×4 (02:47→21:04)
[2016-11-24 04:46] LABS: % IMMATURE GRANULYOCYTES 0.6 % (0.0-1.1); ABSOLUTE IMMATURE GRANULOCYTES 0.03 10^3/uL (0.00-0.10); ADD DIFF? NO; ADD MORPH? NO; ADD SCAN? NO; ATYPICAL LYMPHOCYTE FLAG 0 (0-99); FRAGMENT RBC FLAG 10 (0-99); HEMATOCRIT 24.9 % (40.0-51.0); HEMOGLOBIN 8.2 g/dL (13.7-17.5); LEFT SHIFT FLG 0 (0-99); LIPEMIA HEMOLYSIS FLAG 80 (0-99); MEAN CELL HEMOGLOBIN 36.6 pg (27.9-34.1); MEAN CELL HEMOGLOBIN CONCENTR. 32.9 g/dL (32.4-36.7); MEAN CELL VOLUME 111.2 fL (81.5-99.8); MEAN PLATELET VOLUME 10.5 fL (8.7-11.7); PLATELET CLUMPS FLAG 10 (0-99); PLATELET COUNT 128 10^3/uL (150-400); RED BLOOD CELL COUNT 2.24 10^6/uL (4.40-6.38); RED CELL DISTRIBUTION WIDTH 18.2 % (11.5-15.2)
[2016-11-24 05:03] LABS: ALANINE AMINOTRANSFERASE 34 IU/L (21-72); ALBUMIN 2.6 g/dL (3.5-5.0); ALKALINE PHOSPHATASE 260 IU/L (38-126); ANION GAP 6 mEq/L (8-16); ASPARTATE AMINOTRANSFERASE 26 IU/L (17-59); BILIRUBIN,TOTAL 0.7 mg/dL (0.1-1.4); CARBON DIOXIDE 27 mEq/l (22-31); CHLORIDE 100 mEq/L (97-110); GLOMERULAR FILTRATION RATE 32; GLUCOSE 116 mg/dL (70-100); POTASSIUM 4.9 mEq/L (3.5-5.2); SODIUM 133 mEq/L (134-144)
[2016-11-24] MEDS: ACETAMINOPHEN 325 MG TAB PO PRN ×2 (07:54→21:03)
[2016-11-24] MEDS: PANCREAZE PO SCH ×3 (07:54→16:40)
[2016-11-24] MEDS: MAGNESIUM OXIDE 400 MG TAB PO SCH (07:56)
[2016-11-24] MEDS: MULTIVITAMINS 1 EACH TAB PO SCH (07:56)
[2016-11-24] MEDS: METOPROLOL SUCCINATE XR 25 MG TAB PO SCH (07:56)
[2016-11-24] MEDS: ASPIRIN 325 MG TAB PO SCH (07:56)
[2016-11-24] MEDS: FERROUS SULFATE 325 MG TAB PO SCH ×2 (07:56→20:38)
[2016-11-24] MEDS: ALLOPURINOL 100 MG TAB PO SCH ×2 (07:56→20:38)
[2016-11-24] MEDS: PANTOPRAZOLE SODIUM 40 MG TAB PO SCH (07:57)
[2016-11-24] MEDS: FUROSEMIDE 20 MG/2 ML VIAL IVP SCH ×2 (07:57→16:36)
[2016-11-24] MEDS: ceFAZolin 0.5 GM in D5W 50 ML IV SCH ×2 (07:57→20:38)
[2016-11-24] MEDS: INSULIN GLARGINE 100 UNITS/ML SYRINGE SC SCH (07:57)
[2016-11-24] MEDS: ENOXAPARIN 60 MG/0.6 ML SYR SC SCH (07:58)
--- NOTE | 2016-11-24 09:00 | SOAPPROG ---
SOPERCY Progress Note Assessment/Plan: 1. Diastolic CHF - Pt admitted with acute diastolic CHF. Echocardiogram with preserved LV function and normally functioning bioprosthetic mitral valve. BNP elevated at 4750. O > I by 800 ml. Weight down 5 KG overnight (? measurement error). Dyspnea and edema improved over last 24 hrs. --> Will double check weight. --> Continue gentle diuresis with goal loss over 24 hrs at 1 to 1.5 L --> Continue metoprolol --> No GALILEA or ARB secondary to renal insufficiency. 2. CKD - Cr stable at 2 3. 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 Recent echocardiogram with normally functioning bioprosthesis. 4. PAF - Pt has a history of PAF. No evidence of A-fib on last pacer check (). Telemetry monitoring with sinus rhythm, paced rhythm, and episodic irregular rhythm suggestive of frequent PACs vs PAF. --> Continue metoprolol and lovenox. --> See anemia below. 5. DM 6. HTN - BP well controlled. 7. VERNA - CPAP 8. Anemia - Pts Hgb decreased from 10.1 to 8.2. --> Hemacult check stool --> Repeat CBC at 12:00 --> Consider DC of lovenox Subjective: No chest pain + orthopnea No PND Ambulating around pod 4 times Telemetry monitoring with SR, Paced rhythm, PACs Hgb down from 10 to 8 overnight Pt reports R hip pain overnight Objective: Vital Signs Temp Pulse Resp BP Pulse Ox 36.5 C 73 12 96/58 L 92 11/24/16 07:15 11/24/16 07:15 11/24/16 07:15 11/24/16 07:15 11/24/16 07:15 Laboratory Results 11/24/16 03:58 11/24/16 03:58 11/23/16 11/24/16 11/25/16 05:59 05:59 05:59 Intake Total 780 1725 Output Total 2235 2525 200 Balance -1455 -800 -200 PT 13.7 SEC (12.0-15.0) 11/21/16 16:20 INR 1.06 (0.83-1.16) 11/21/16 16:20 Physical Exam - Physical Exam General Appearance: alert, no apparent distress Respiratory: lungs clear Cardiac/Chest: regular rate, rhythm Abdomen: soft, other (mild tenderness to palpation in LLQ) Extremities: pedal edema Neuro/Psych: alert ICD10 Worksheet Patient Problems: Problems Problem Status Onset Chronic Disease Management/Transitional Care Program Active Closed right acetabular fracture Acute Edema Acute Fall on same level from tripping as cause of accidental injury Acute Fracture of right olecranon process Acute Hyperkalemia Acute Osteoarthritis of right hip Acute Pelvic fracture Acute
--- NOTE | 2016-11-24 09:40 | SOAPPROG ---
SOAP Progress Note Assessment/Plan: Assessment: 19 days s/p right MARTINE. Readmitted for CHF and weight gain. Mild posterior hip pain. Walking in east. Plan: Continue medical management and PT Back to [facility] when in optimal medical condition. 11/24/16 09:38 Objective: Vital Signs Temp Pulse Resp BP Pulse Ox 36.5 C 73 12 96/58 L 92 11/24/16 07:15 11/24/16 07:15 11/24/16 07:15 11/24/16 07:15 11/24/16 07:15 Laboratory Results 11/24/16 03:58 11/24/16 03:58 11/23/16 11/24/16 11/25/16 05:59 05:59 05:59 Intake Total 780 1725 Output Total 2235 2525 200 Balance -1455 -800 -200 PT 13.7 SEC (12.0-15.0) 11/21/16 16:20 INR 1.06 (0.83-1.16) 11/21/16 16:20 ICD10 Worksheet Patient Problems: Problems Problem Status Onset Chronic Disease Management/Transitional Care Program Active Closed right acetabular fracture Acute Edema Acute Fall on same level from tripping as cause of accidental injury Acute Fracture of right olecranon process Acute Hyperkalemia Acute Osteoarthritis of right hip Acute Pelvic fracture Acute
[2016-11-24] MEDS: SODIUM FERRIC GLUCONAT/SUCROSE 125 MG in NS 100 ML IV SCH (10:03)
--- NOTE | 2016-11-24 10:50 | SOAPPROG ---
SOAP Progress Note Assessment/Plan: Assessment:Edema. Redness, RO cellulitis. Good cardiac function. Renal compromise . AODM. Significant drop in hgb today. Plan:Continue withi diuresis. Not ready for DC yet. Cont IV diuretic. Recheck HGB and FOB. follow closely. 11/23/16 10:18 11/24/16 10:50 Subjective: No real change. CO some L lateral hip pain. No significant lower leg pain. Swelling persists. Objective: Vital Signs Temp Pulse Resp BP Pulse Ox 36.5 C 73 12 96/58 L 92 11/24/16 07:15 11/24/16 07:15 11/24/16 07:15 11/24/16 07:15 11/24/16 07:15 Laboratory Results 11/24/16 03:58 11/24/16 03:58 11/23/16 11/24/16 11/25/16 05:59 05:59 05:59 Intake Total 780 1725 Output Total 2235 2525 200 Balance -1455 -800 -200 PT 13.7 SEC (12.0-15.0) 11/21/16 16:20 INR 1.06 (0.83-1.16) 11/21/16 16:20 Leg slightly less pink. Lungs clear, leg edema persists. Diuresis is good. HGB is down significantly this morning. Dr. Perez has already ordered repeat CBC and Hemoccult as well as stopped the Lovenox. ICD10 Worksheet Patient Problems: Problems Problem Status Onset Chronic Disease Management/Transitional Care Program Active Closed right acetabular fracture Acute Edema Acute Fall on same level from tripping as cause of accidental injury Acute Fracture of right olecranon process Acute Hyperkalemia Acute Osteoarthritis of right hip Acute Pelvic fracture Acute
[2016-11-24 12:49] LABS: HEMATOCRIT 25.5 % (40.0-51.0); HEMOGLOBIN 8.3 g/dL (13.7-17.5); MEAN CELL HEMOGLOBIN 36.9 pg (27.9-34.1); MEAN CELL HEMOGLOBIN CONCENTR. 32.5 g/dL (32.4-36.7); MEAN CELL VOLUME 113.3 fL (81.5-99.8); RED BLOOD CELL COUNT 2.25 10^6/uL (4.40-6.38); RED CELL DISTRIBUTION WIDTH 18.1 % (11.5-15.2)
[2016-11-24] MEDS: PRAVASTATIN SODIUM 20 MG TAB PO SCH (20:38)
[2016-11-25 04:22] LABS: % IMMATURE GRANULYOCYTES 0.3 % (0.0-1.1); ABSOLUTE IMMATURE GRANULOCYTES 0.01 10^3/uL (0.00-0.10); ADD DIFF? NO; ADD MORPH? NO; ADD SCAN? NO; ATYPICAL LYMPHOCYTE FLAG 10 (0-99); FRAGMENT RBC FLAG 10 (0-99); HEMATOCRIT 23.3 % (40.0-51.0); HEMOGLOBIN 7.6 g/dL (13.7-17.5); LEFT SHIFT FLG 0 (0-99); LIPEMIA HEMOLYSIS FLAG 80 (0-99); MEAN CELL HEMOGLOBIN 36.7 pg (27.9-34.1); MEAN CELL HEMOGLOBIN CONCENTR. 32.6 g/dL (32.4-36.7); MEAN CELL VOLUME 112.6 fL (81.5-99.8); MEAN PLATELET VOLUME 11.2 fL (8.7-11.7); PLATELET CLUMPS FLAG 0 (0-99); PLATELET COUNT 117 10^3/uL (150-400); RED BLOOD CELL COUNT 2.07 10^6/uL (4.40-6.38); RED CELL DISTRIBUTION WIDTH 17.5 % (11.5-15.2)
[2016-11-25 04:39] LABS: ALANINE AMINOTRANSFERASE 31 IU/L (21-72); ALBUMIN 2.4 g/dL (3.5-5.0); ALKALINE PHOSPHATASE 254 IU/L (38-126); ANION GAP 5 mEq/L (8-16); ASPARTATE AMINOTRANSFERASE 24 IU/L (17-59); BILIRUBIN,TOTAL 0.5 mg/dL (0.1-1.4); CALCIUM 7.9 mg/dL (8.5-10.4); CARBON DIOXIDE 25 mEq/l (22-31); CHLORIDE 100 mEq/L (97-110); CREATININE 2.1 mg/dL (0.7-1.3); GLOMERULAR FILTRATION RATE 30; GLUCOSE 144 mg/dL (70-100); POTASSIUM 4.7 mEq/L (3.5-5.2); SODIUM 130 mEq/L (134-144); TOTAL PROTEIN 4.9 g/dL (6.3-8.2)
[2016-11-25] MEDS: ACETAMINOPHEN 325 MG TAB PO PRN ×3 (05:20→21:34)
[2016-11-25] MEDS: oxyCODONE IR 5 MG TAB PO PRN ×3 (05:20→21:35)
--- NOTE | 2016-11-25 07:49 | SOAPPROG ---
BRIAN Progress Note Assessment/Plan: 1. Diastolic CHF - Pt admitted with acute diastolic CHF. Echocardiogram with preserved LV function and normally functioning bioprosthetic mitral valve. BNP elevated at 4750. weight down 2.2 lbs overnight. BP is on the low side. CR mildly increased from baseline. Will back off diuretic therapy. --> Decrease lasix to 20 mg daily. --> Continue metoprolol --> No GALILEA or ARB secondary to renal insufficiency. 2. CKD - Cr up to 2.1 3. 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 Recent echocardiogram with normally functioning bioprosthesis. 4. PAF - Pt has a history of PAF. No evidence of A-fib on last pacer check (). Telemetry monitoring with sinus rhythm, paced rhythm, and episodic irregular rhythm suggestive of frequent PACs vs PAF. --> Continue metoprolol --> No anticoagulation secondary to anemia 5. DM 6. HTN - BP well controlled. 7. VERNA - CPAP 8. Anemia - Pts Hgb decreased from 10.1 to 8.2 to 7.6. Hemacult neg. Subjective: No chest pain Dyspnea improved ambulating around pod Telemetry with sinus rhythm, paced rhythm, frequent PACs edema improved Objective: Vital Signs Temp Pulse Resp BP Pulse Ox 36.6 C 68 17 105/60 96 11/25/16 03:46 11/25/16 03:46 11/25/16 03:46 11/25/16 03:46 11/25/16 03:46 Laboratory Results 11/25/16 03:27 11/25/16 03:27 11/24/16 11/25/16 11/26/16 05:59 05:59 05:59 Intake Total 1725 700 Output Total 2525 1875 Balance -800 -1175 PT 13.7 SEC (12.0-15.0) 11/21/16 16:20 INR 1.06 (0.83-1.16) 11/21/16 16:20 Physical Exam - Physical Exam General Appearance: alert, no apparent distress Respiratory: lungs clear Cardiac/Chest: regular rate, rhythm Abdomen: normal bowel sounds, No non-tender Extremities: pedal edema Neuro/Psych: alert ICD10 Worksheet Patient Problems: Problems Problem Status Onset Chronic Disease Management/Transitional Care Program Active Closed right acetabular fracture Acute Edema Acute Fall on same level from tripping as cause of accidental injury Acute Fracture of right olecranon process Acute Hyperkalemia Acute Osteoarthritis of right hip Acute Pelvic fracture Acute
--- NOTE | 2016-11-25 10:10 | SOAPPROG ---
SOAP Progress Note Assessment/Plan: Assessment:Edema. Redness, RO cellulitis. Good cardiac function. Renal compromise . AODM. Significant drop in hgb today. Possible bleed into surgical site vs GI blood loss Plan: Transfuse 1 unit PRBC. Not ready for DC yet. Cont IV diuretic. Recheck HGB and FOB. follow closely. 11/23/16 10:18 11/24/16 10:50 11/25/16 10:09 Subjective: Slept late this morning. No new complaints. R hip pain better. Objective: Vital Signs Temp Pulse Resp BP Pulse Ox 36.7 C 83 18 130/66 H 92 11/25/16 08:00 11/25/16 08:00 11/25/16 08:00 11/25/16 08:00 11/25/16 08:00 Laboratory Results 11/25/16 03:27 11/25/16 03:27 11/24/16 11/25/16 11/26/16 05:59 05:59 05:59 Intake Total 1725 700 Output Total 2525 1875 150 Balance -800 -1175 -150 PT 13.7 SEC (12.0-15.0) 11/21/16 16:20 INR 1.06 (0.83-1.16) 11/21/16 16:20 Lungs clear to asc. HGB down to 7.6. Hemoccult negative. ICD10 Worksheet Patient Problems: Problems Problem Status Onset Chronic Disease Management/Transitional Care Program Active Closed right acetabular fracture Acute Edema Acute Fall on same level from tripping as cause of accidental injury Acute Fracture of right olecranon process Acute Hyperkalemia Acute Osteoarthritis of right hip Acute Pelvic fracture Acute
[2016-11-25] MEDS: INSULIN GLARGINE 100 UNITS/ML SYRINGE SC SCH (10:20)
[2016-11-25] MEDS: METOPROLOL SUCCINATE XR 25 MG TAB PO SCH (10:21)
[2016-11-25] MEDS: MAGNESIUM OXIDE 400 MG TAB PO SCH (10:21)
[2016-11-25] MEDS: FUROSEMIDE 20 MG/2 ML VIAL IVP SCH (10:21)
[2016-11-25] MEDS: ALLOPURINOL 100 MG TAB PO SCH ×2 (10:21→20:25)
[2016-11-25] MEDS: ASPIRIN 325 MG TAB PO SCH (10:21)
[2016-11-25] MEDS: MULTIVITAMINS 1 EACH TAB PO SCH (10:23)
[2016-11-25] MEDS: FERROUS SULFATE 325 MG TAB PO SCH ×2 (10:23→20:25)
[2016-11-25] MEDS: PANTOPRAZOLE SODIUM 40 MG TAB PO SCH (10:23)
[2016-11-25] MEDS: SODIUM FERRIC GLUCONAT/SUCROSE 125 MG in NS 100 ML IV SCH (10:23)
[2016-11-25] MEDS: PANCREAZE PO SCH ×3 (10:23→17:32)
[2016-11-25] MEDS: ceFAZolin 0.5 GM in D5W 50 ML IV SCH ×2 (10:23→20:25)
[2016-11-25] MEDS: PRAVASTATIN SODIUM 20 MG TAB PO SCH (20:25)
[2016-11-26 04:26] LABS: % IMMATURE GRANULYOCYTES 0.7 % (0.0-1.1); ABSOLUTE IMMATURE GRANULOCYTES 0.03 10^3/uL (0.00-0.10); ADD DIFF? NO; ADD MORPH? YES; ADD SCAN? NO; ATYPICAL LYMPHOCYTE FLAG 20 (0-99); FRAGMENT RBC FLAG 20 (0-99); HEMATOCRIT 25.9 % (40.0-51.0); HEMOGLOBIN 8.4 g/dL (13.7-17.5); LEFT SHIFT FLG 0 (0-99); LIPEMIA HEMOLYSIS FLAG 80 (0-99); MEAN CELL HEMOGLOBIN 34.9 pg (27.9-34.1); MEAN CELL HEMOGLOBIN CONCENTR. 32.4 g/dL (32.4-36.7); MEAN CELL VOLUME 107.5 fL (81.5-99.8); PLATELET CLUMPS FLAG 0 (0-99); PLATELET COUNT 110 10^3/uL (150-400); RED BLOOD CELL COUNT 2.41 10^6/uL (4.40-6.38)
[2016-11-26 04:30] LABS: ALANINE AMINOTRANSFERASE 34 IU/L (21-72); ALBUMIN 2.5 g/dL (3.5-5.0); ALKALINE PHOSPHATASE 272 IU/L (38-126); ANION GAP 4 mEq/L (8-16); ASPARTATE AMINOTRANSFERASE 28 IU/L (17-59); BILIRUBIN,TOTAL 0.6 mg/dL (0.1-1.4); CALCIUM 7.8 mg/dL (8.5-10.4); CARBON DIOXIDE 26 mEq/l (22-31); CHLORIDE 99 mEq/L (97-110); CREATININE 2.2 mg/dL (0.7-1.3); GLOMERULAR FILTRATION RATE 28; GLUCOSE 97 mg/dL (70-100); POTASSIUM 4.6 mEq/L (3.5-5.2); SODIUM 129 mEq/L (134-144); TOTAL PROTEIN 5.1 g/dL (6.3-8.2)
[2016-11-26 05:58] LABS: KERATOCYTES 1+; MACROCYTES 1+; POLYCHROMASIA 1+
[2016-11-26 05:59] LABS: HYPOCHROMIA 2+
[2016-11-26 06:04] LABS: PLATELET ESTIMATE DECREASED (ADEQ)
[2016-11-26] MEDS: oxyCODONE IR 5 MG TAB PO PRN ×2 (06:11→21:16)
[2016-11-26] MEDS: ACETAMINOPHEN 325 MG TAB PO PRN ×2 (06:12→21:15)
--- NOTE | 2016-11-26 09:31 | SOAPPROG ---
SOAP Progress Note Assessment/Plan: Assessment: Plan: 11/26/16 09:29 CHF: lasix dose decreased yesterday due to slowly rising creatinine. Up to 2.2 today, and Na down to 129. Will hold today's dose for now until seen by cardiology. Cellulitis: remains on antibx Anemia: FOB negative x2. Hgb up to 8.4 with transfusion 1 unit PRBC. Will continue to monitor CKD: as noted above. Cr now 2.2. 11/26/16 09:33 11/26/16 09:37 Subjective: Sitting up in chair this morning. Feeling ok. No new complaints. Objective: Vital Signs Temp Pulse Resp BP Pulse Ox 36.7 C 69 14 88/45 L 93 11/26/16 07:10 11/26/16 07:10 11/26/16 07:10 11/26/16 07:10 11/26/16 07:10 Laboratory Results 11/26/16 03:22 11/26/16 03:22 11/25/16 11/26/16 11/27/16 05:59 05:59 05:59 Intake Total 700 175 Output Total 1875 1175 Balance -1175 -1000 PT 13.7 SEC (12.0-15.0) 11/21/16 16:20 INR 1.06 (0.83-1.16) 11/21/16 16:20 General: awake, alert, pleasant Lungs: clear bilaterally Cardiovascular: RRR Abdomen: soft, NT Extremities: BLE edema ICD10 Worksheet Patient Problems: Problems Problem Status Onset Chronic Disease Management/Transitional Care Program Active Closed right acetabular fracture Acute Edema Acute Fall on same level from tripping as cause of accidental injury Acute Fracture of right olecranon process Acute Hyperkalemia Acute Osteoarthritis of right hip Acute Pelvic fracture Acute
[2016-11-26] MEDS: MULTIVITAMINS 1 EACH TAB PO SCH (09:37)
[2016-11-26] MEDS: PANCREAZE PO SCH ×3 (09:37→17:57)
[2016-11-26] MEDS: METOPROLOL SUCCINATE XR 25 MG TAB PO SCH (09:37)
[2016-11-26] MEDS: INSULIN GLARGINE 100 UNITS/ML SYRINGE SC SCH (09:37)
[2016-11-26] MEDS: ALLOPURINOL 100 MG TAB PO SCH ×2 (09:37→20:52)
[2016-11-26] MEDS: MAGNESIUM OXIDE 400 MG TAB PO SCH (09:38)
[2016-11-26] MEDS: FERROUS SULFATE 325 MG TAB PO SCH ×2 (09:38→20:51)
[2016-11-26] MEDS: ceFAZolin 0.5 GM in D5W 50 ML IV SCH ×2 (09:38→20:52)
[2016-11-26] MEDS: SODIUM FERRIC GLUCONAT/SUCROSE 125 MG in NS 100 ML IV SCH (09:38)
[2016-11-26] MEDS: ASPIRIN 325 MG TAB PO SCH (09:38)
[2016-11-26] MEDS: PANTOPRAZOLE SODIUM 40 MG TAB PO SCH (09:38)
--- NOTE | 2016-11-26 11:38 | PDCARPN ---
Cardiology Progress Note Chief Complaint: biventricular CHF Assessment/Plan: Assessment: Alfred is an 86-year-old male with recent THR with Dr. Mercado 11/05 and had discharged to [facility]. Over the past couple of weeks he has had significant weight gain of 10 kg and profound lower extremity edema as well as scrotal edema. He has also noticed left upper extremity swelling. He does report shortness of breath when he bends over. He denies angina. He has had some venous stasis ulcers on his legs that are now worse. #. biventricular failure: IV lasix initiated but had to be downtitrated due to 0.2 rise in Cr still appears quite fluid overloaded with JVD, bilateral crackles, peripheral edema, abdominal distension/ will initiate Lasix gtt has put out 1 liter already with 3 kg weight loss will repeat echo to r/o LV and RV systolic dysfunction on BB likely not on ACEi 2/2 renal dysfunction #. CKD: Cr typicall at 2, currently 2.2 #. hyperkalemia: seen in ED on 11/19 but K normal currently #. bioMVR: done in 2010 echo in this admission normal functioning valve #. PAF/fl: last pacer check 10/17 without any arrhythmias deemed unsuitable candidate for full AC due to history of falls and bleeding #. DM: continue insulins under direction of Mike Adams, PAC #. htn: BP appears controlled #. VERNA: CPAP #. anemia: per IM #. cellulitis: per IM #. edema/asymmetric arm swelling and leg swelling: dopplers negative for DVT Plan: - Trial Lasix gtt 11/26/16 11:34 Subjective: Still severely volume overloaded. Has bed at 35 degree incline. Has been walking a little and breathing is keeping up. No pnd or cp. Objective: Vital Signs (8 Hrs) Temp Pulse Resp BP Pulse Ox 11/26/16 09:37 65 106/97 H 11/26/16 07:10 98.1 F 69 14 88/45 L 93 11/26/16 03:45 98.4 F 75 12 104/66 98 Intake/Output (24 Hrs) 11/25/16 11/26/16 11/27/16 05:59 05:59 05:59 Intake Total 700 175 Output Total 1875 1175 150 Balance -1175 -1000 -150 Intake: Oral (ml) 700 25 IV Infused (ml) 150 Sodium Ferric Gluconat/ 100 Sucrose 125 mg In Ns 100 ml @ 110 mls/hr IV DAILY [facility] Rx#:[id number] ceFAZolin 0.5 gm In D5w 50 50 ml @ 200 mls/hr IV Q12HRS [facility] Rx#:[id number] Output: Urine (ml) 1875 1175 150 Diapers/Briefs 300 Urinal 1575 1175 150 Other: Weight 73.9 kg 75.2 kg Intake Quantity Yes Yes Sufficient Number of Voids Urinal 1 Number of Stools Diapers/Briefs 1 Result Diagrams: 11/26/16 03:22 11/26/16 03:22 Telemetry: reviewed/paced - Physical Exam Constitutional: no apparent distress Eyes: anicteric sclera Cardiovascular: regular rate and rhythm Respiratory: reduced air movement, expiratory wheeze, inspiratory crackles, bronchial breath sounds Gastrointestinal: normoactive bowel sounds Skin: warm, erythema, other (LE edema) Psychiatric: cooperative, interactive ICD10 Worksheet Patient Problems: Problems Problem Status Onset Chronic Disease Management/Transitional Care Program Active Closed right acetabular fracture Acute Edema Acute Fall on same level from tripping as cause of accidental injury Acute Fracture of right olecranon process Acute Hyperkalemia Acute Osteoarthritis of right hip Acute Pelvic fracture Acute
[2016-11-26] MEDS: FUROSEMIDE 20 MG/2 ML VIAL IVP SCH (11:46)
[2016-11-26] MEDS ORDERED: D50W 25 GM/50 ML SYR IVP PRN ×2 (15:31→16:49)
[2016-11-26] MEDS: FUROSEMIDE 100 MG in D5W 100 ML IV SCH (16:03)
[2016-11-26] MEDS ORDERED: D50W 25 GM/50 ML VIAL IVP PRN (16:49)
[2016-11-26] MEDS ORDERED: PARAMETERS MISC PRN (16:49)
[2016-11-26] MEDS: INSULIN REGULAR, HUMAN 100 UNIT/1 ML VIAL STANDARD SC SCH ×2 (17:58→21:53)
[2016-11-26] MEDS: PRAVASTATIN SODIUM 20 MG TAB PO SCH (20:52)
[2016-11-27 05:31] LABS: % IMMATURE GRANULYOCYTES 0.5 % (0.0-1.1); ABSOLUTE IMMATURE GRANULOCYTES 0.02 10^3/uL (0.00-0.10); ADD DIFF? NO; ADD MORPH? NO; ADD SCAN? NO; ATYPICAL LYMPHOCYTE FLAG 20 (0-99); FRAGMENT RBC FLAG 10 (0-99); HEMATOCRIT 26.6 % (40.0-51.0); HEMOGLOBIN 8.7 g/dL (13.7-17.5); LEFT SHIFT FLG 0 (0-99); LIPEMIA HEMOLYSIS FLAG 80 (0-99); MEAN CELL HEMOGLOBIN 35.2 pg (27.9-34.1); MEAN CELL HEMOGLOBIN CONCENTR. 32.7 g/dL (32.4-36.7); MEAN CELL VOLUME 107.7 fL (81.5-99.8); MEAN PLATELET VOLUME 10.9 fL (8.7-11.7); PLATELET CLUMPS FLAG 0 (0-99); PLATELET COUNT 120 10^3/uL (150-400); RED BLOOD CELL COUNT 2.47 10^6/uL (4.40-6.38); RED CELL DISTRIBUTION WIDTH 19.9 % (11.5-15.2)
[2016-11-27] MEDS: ACETAMINOPHEN 325 MG TAB PO PRN ×2 (06:09→21:18)
[2016-11-27] MEDS: oxyCODONE IR 5 MG TAB PO PRN ×2 (06:09→21:19)
[2016-11-27 06:54] LABS: ALANINE AMINOTRANSFERASE 31 IU/L (21-72); ALBUMIN 2.6 g/dL (3.5-5.0); ALKALINE PHOSPHATASE 310 IU/L (38-126); ANION GAP 9 mEq/L (8-16); ASPARTATE AMINOTRANSFERASE 31 IU/L (17-59); BILIRUBIN,TOTAL 0.6 mg/dL (0.1-1.4); CALCIUM 8.1 mg/dL (8.5-10.4); CARBON DIOXIDE 25 mEq/l (22-31); CHLORIDE 98 mEq/L (97-110); CREATININE 2.2 mg/dL (0.7-1.3); GLOMERULAR FILTRATION RATE 28; GLUCOSE 108 mg/dL (70-100); POTASSIUM 4.3 mEq/L (3.5-5.2); SODIUM 132 mEq/L (134-144); TOTAL PROTEIN 5.3 g/dL (6.3-8.2)
[2016-11-27] MEDS: INSULIN REGULAR, HUMAN 100 UNIT/1 ML VIAL STANDARD SC SCH ×4 (07:58→21:14)
[2016-11-27] MEDS: PANCREAZE PO SCH ×3 (08:16→18:28)
[2016-11-27] MEDS: ASPIRIN 325 MG TAB PO SCH (08:18)
[2016-11-27] MEDS: MAGNESIUM OXIDE 400 MG TAB PO SCH (08:18)
[2016-11-27] MEDS: PANTOPRAZOLE SODIUM 40 MG TAB PO SCH (08:18)
[2016-11-27] MEDS: ALLOPURINOL 100 MG TAB PO SCH ×2 (08:18→21:10)
[2016-11-27] MEDS: MULTIVITAMINS 1 EACH TAB PO SCH (08:18)
[2016-11-27] MEDS: FERROUS SULFATE 325 MG TAB PO SCH (08:18)
[2016-11-27] MEDS: METOPROLOL SUCCINATE XR 25 MG TAB PO SCH (08:21)
[2016-11-27] MEDS: INSULIN GLARGINE 100 UNITS/ML SYRINGE SC SCH (08:22)
[2016-11-27] MEDS: FUROSEMIDE 100 MG in D5W 100 ML IV SCH (08:27)
[2016-11-27] MEDS: ceFAZolin 0.5 GM in D5W 50 ML IV SCH ×2 (09:31→21:10)
[2016-11-27] MEDS: SODIUM FERRIC GLUCONAT/SUCROSE 125 MG in NS 100 ML IV SCH (09:32)
[2016-11-27] MEDS ORDERED: ALBUMIN 25% 100 ML IV ONE (11:09)
[2016-11-27] MEDS ORDERED: FUROSEMIDE 20 MG/2 ML VIAL IVP ONE (11:16)
--- NOTE | 2016-11-27 11:17 | SOAPPROG ---
SOAP Progress Note Assessment/Plan: Assessment: Plan: 11/21/16 18:21 marked fluid retention--weight reportedly up 20 lbs--will start with 20 mg IV lasix BID, potassium was elevated earlier in the week. CKD baseline Cr 1.6-2.0 h/o creatinine elevations anatomic cirrhotic appearing liver--no h/o etoh use anemia r/o DVT--preliminary negative. Will no check CTA due to CKD treatment dose of lovenox renally adjusted cellulitis--smoldering add ancef, wound care 11/22/16 08:36 fluid retention--improving, weight down 1 kg last night CKD stable--follow labs closely anemia with fe def--add iv iron cellulitis--looks improved this am, wound care pending s/p RTH--PT/OT and ambulation suspected VTE--US negative, LUE with marked asymmetric swelling, continue to renally adjusted treatment dose lovenox for now 11/27/16 11:14 persistent diastolic dysfunction with fluid accumulation outside of the vasculature. D/w Dr Hendricks. Add IV albumin to see if we can mobilize some of the fluid. Increase dose if tolerated. CKD--pulp drier due to IV therapy anemia--stable fe def iv iron has been given daily, will d/c cellulitis--healing hampered by edema Subjective: The patient feels ok. Some hip and knee soreness, but tolerable. Appetite is good. Bowels are ok. Legs remain swollen. He feels he is urinating a lot, but weight is not dropping Objective: Vital Signs Temp Pulse Resp BP Pulse Ox 36.5 C 75 20 97/56 L 91 L 11/27/16 07:28 11/27/16 07:28 11/27/16 07:28 11/27/16 07:28 11/27/16 07:28 Laboratory Results 11/27/16 04:04 11/27/16 04:04 11/26/16 11/27/16 11/28/16 05:59 05:59 05:59 Intake Total 175 1315 Output Total 1175 1200 200 Balance -1000 115 -200 PT 13.7 SEC (12.0-15.0) 11/21/16 16:20 INR 1.06 (0.83-1.16) 11/21/16 16:20 Gen: NAD, bright Lungs: mildly diminished bs, mild basilar crackles Heart: RRR Abd + bs soft, moderate fluid LE's 2-3+ edema moderate erythema Cr 2.2 BUN 82 Hgb 8.7 ICD10 Worksheet Patient Problems: Problems Problem Status Onset Chronic Disease Management/Transitional Care Program Active Closed right acetabular fracture Acute Edema Acute Fall on same level from tripping as cause of accidental injury Acute Fracture of right olecranon process Acute Hyperkalemia Acute Osteoarthritis of right hip Acute Pelvic fracture Acute
--- NOTE | 2016-11-27 15:43 | PDCARPN ---
Cardiology Progress Note Chief Complaint: Patient reports improvement in shortness of breath. Assessment/Plan: Assessment: 1st time I have seen this patient. 86-year-old male with recent THR with Dr. Mercado ( 11/05/2016), discharge Medicare. Noted to have 10 kilos weight gain over the last few weeks with increased peripheral and scrotal edema. Also noted have should shortness of breath, and elevated BNP of greater than 4000 on admission. Echocardiogram done on 11/22 showing normal LV size and function, EF 65%, normal wall motion, mild concentric LVH, LA is moderately dilated, status post bioprosthetic mitral valve with mean gradient across the valve 4 mm of mercury, mild TR, mild aortic sclerosis with normal leaf mobility, trace AI RVSP estimated at 39 mm of mercury. Dilated IVC. No significant weight change overnight. No significant output with Lasix drip at current setting. Creatinine mildly elevated at 2.2 from yesterday, BUN at 86. Patient denies of any chest pressure or pain, reports improvement in shortness of breath since hospital admission. JVD of 6 cm above sternal notch at 45 degree angle. Mild rales noted in bases. Continues to have +2 to 3 peripheral edema with venous stasis ulcers on his legs. Plan: 1. biventricular failure: Patient instituted on Lasix drip due to increased creatinine level, and little progress with IV bolus Lasix. currently at 5 mg an hour. No significant output or weight loss last night. After discussing with Dr. Mason, will give patient a 10 mg Lasix bolus today, and increase drip to 10 mg an hour. Repeat BMP at 4:30 p.m. today to assure no worsening in renal function. Continue on beta-jacinto. Start on fluid restrictions. 2. CKD: Cr typicall at 2, currently 2.2, Monitor closely with Lasix drip, repeat BMP at 4:30 p.m.. 3. Bioprosthetic mitral valve replacement surgery in 2010: Echocardiogram showing functioning well with normal gradients 4. PAF/fl: last pacer check 10/17 without any arrhythmias, deemed unsuitable candidate for full AC due to history of falls and bleeding 5. DM: continue insulins under direction of JEFF Lamar 6. htn: BP appears controlled, no change to current medications. For candidate for ACEi or ARB due to renal function. 7. VERNA: CPAP 8. anemia: per IM, stable 9. cellulitis: per IM 10. edema/asymmetric arm swelling and leg swelling: dopplers negative for DVT 11/27/16 15:42 Subjective: patient denies of any chest pain, palpitations, lightheadedness, near-syncope or syncopal events. Reviewed/Discussed With: other (Dr Mason) Objective: Vital Signs (8 Hrs) Temp Pulse Resp BP Pulse Ox 11/27/16 15:37 35.6 C L 80 20 121/57 H 91 L 11/27/16 11:20 85/44 L 11/27/16 11:19 36.5 C 59 L 18 89/57 L 95 Intake/Output (24 Hrs) 11/26/16 11/27/16 11/28/16 05:59 05:59 05:59 Intake Total 175 1315 500 Output Total 1175 1200 675 Balance -1000 115 -175 Intake: Oral (ml) 25 1150 500 IV Infused (ml) 150 165 Furosemide 100 mg In D5w 15 100 ml @ 5 mls/hr IV CONT [facility] Rx#:[id number] Sodium Ferric Gluconat/ 100 100 Sucrose 125 mg In Ns 100 ml @ 110 mls/hr IV DAILY [facility] Rx#:[id number] ceFAZolin 0.5 gm In D5w 50 50 50 ml @ 200 mls/hr IV Q12HRS [facility] Rx#:[id number] Output: Urine (ml) 1175 1200 675 Urinal 1175 1200 675 Other: Weight 75.2 kg Intake Quantity Yes Sufficient Number of Voids Diapers/Briefs 2 1 Urinal 1 2 1 Number of Stools Toilet 1 Post Void Residual Scan Volume (ml) Urinal 62 Result Diagrams: 11/27/16 04:04 11/27/16 16:50 - Physical Exam Constitutional: other ( Elderly, short stature, male) Ears, Nose, Mouth, Throat: moist mucous membranes Cardiovascular: regular rate and rhythm, systolic murmur ( 1-2/6 systolic murmur noted along left sternal border.), jugular vein distention ( 5 cm above sternal notch at 90 degree angle.), pulses symmetric bilat, No carotid bruit Peripheral Pulses: 1+: dorsalis-pedis (R), dorsalis-pedis (L), 2+: carotid (R), carotid (L) Respiratory: other ( Mild rales noted in bases bilateral. No rhonchi, rales, or wheezing noted.) Gastrointestinal: normoactive bowel sounds Skin: warm, other (+3 Peripheral edema bilateral lower extremities.) Neurologic: AAOx3 Psychiatric: cooperative, interactive, following commands ICD10 Worksheet Patient Problems: Problems Problem Status Onset Chronic Disease Management/Transitional Care Program Active Closed right acetabular fracture Acute Edema Acute Fall on same level from tripping as cause of accidental injury Acute Fracture of right olecranon process Acute Hyperkalemia Acute Osteoarthritis of right hip Acute Pelvic fracture Acute
[2016-11-27 17:21] LABS: ANION GAP 10 mEq/L (8-16); CALCIUM 8.2 mg/dL (8.5-10.4); CARBON DIOXIDE 28 mEq/l (22-31); CHLORIDE 98 mEq/L (97-110); CREATININE 2.3 mg/dL (0.7-1.3); GLOMERULAR FILTRATION RATE 27; GLUCOSE 98 mg/dL (70-100); POTASSIUM 4.1 mEq/L (3.5-5.2); SODIUM 136 mEq/L (134-144)
[2016-11-27] MEDS ORDERED: FUROSEMIDE 100 MG in D5W 100 ML IV SCH (19:30)
[2016-11-27] MEDS: PRAVASTATIN SODIUM 20 MG TAB PO SCH (21:10)
[2016-11-28 04:59] LABS: HEMATOCRIT 26.9 % (40.0-51.0); HEMOGLOBIN 8.8 g/dL (13.7-17.5); MEAN CELL HEMOGLOBIN 35.2 pg (27.9-34.1); MEAN CELL HEMOGLOBIN CONCENTR. 32.7 g/dL (32.4-36.7); MEAN CELL VOLUME 107.6 fL (81.5-99.8); RED BLOOD CELL COUNT 2.5 10^6/uL (4.40-6.38); RED CELL DISTRIBUTION WIDTH 19.5 % (11.5-15.2)
[2016-11-28 06:22] LABS: ALANINE AMINOTRANSFERASE 25 IU/L (21-72); ALBUMIN 2.9 g/dL (3.5-5.0); ALKALINE PHOSPHATASE 294 IU/L (38-126); ANION GAP 11 mEq/L (8-16); ASPARTATE AMINOTRANSFERASE 28 IU/L (17-59); BILIRUBIN,TOTAL 0.8 mg/dL (0.1-1.4); CALCIUM 8.3 mg/dL (8.5-10.4); CARBON DIOXIDE 28 mEq/l (22-31); CHLORIDE 96 mEq/L (97-110); CREATININE 2.3 mg/dL (0.7-1.3); GLOMERULAR FILTRATION RATE 27; GLUCOSE 116 mg/dL (70-100); POTASSIUM 4.1 mEq/L (3.5-5.2); SODIUM 135 mEq/L (134-144); TOTAL PROTEIN 5.3 g/dL (6.3-8.2)
[2016-11-28] MEDS: MAGNESIUM OXIDE 400 MG TAB PO SCH (08:11)
[2016-11-28] MEDS: MULTIVITAMINS 1 EACH TAB PO SCH (08:11)
[2016-11-28] MEDS: PANCREAZE PO SCH ×3 (08:11→18:42)
[2016-11-28] MEDS: ACETAMINOPHEN 325 MG TAB PO PRN ×2 (08:11→21:25)
[2016-11-28] MEDS: PANTOPRAZOLE SODIUM 40 MG TAB PO SCH (08:11)
[2016-11-28] MEDS: METOPROLOL SUCCINATE XR 25 MG TAB PO SCH (08:12)
[2016-11-28] MEDS: ASPIRIN 325 MG TAB PO SCH (08:12)
[2016-11-28] MEDS: ALLOPURINOL 100 MG TAB PO SCH ×2 (08:12→21:26)
[2016-11-28] MEDS: ceFAZolin 0.5 GM in D5W 50 ML IV SCH (08:12)
[2016-11-28] MEDS ORDERED: ALBUMIN 25% 100 ML IV ONE (08:25)
[2016-11-28] MEDS: INSULIN GLARGINE 100 UNITS/ML SYRINGE SC SCH (08:25)
[2016-11-28] MEDS: INSULIN REGULAR, HUMAN 100 UNIT/1 ML VIAL STANDARD SC SCH ×4 (08:29→21:24)
[2016-11-28] MEDS ORDERED: ENOXAPARIN 30 MG/0.3 ML SYR SC SCH (08:40)
--- NOTE | 2016-11-28 08:40 | SOAPPROG ---
SOAP Progress Note Assessment/Plan: Assessment: Plan: 11/21/16 18:21 marked fluid retention--weight reportedly up 20 lbs--will start with 20 mg IV lasix BID, potassium was elevated earlier in the week. CKD baseline Cr 1.6-2.0 h/o creatinine elevations anatomic cirrhotic appearing liver--no h/o etoh use anemia r/o DVT--preliminary negative. Will no check CTA due to CKD treatment dose of lovenox renally adjusted cellulitis--smoldering add ancef, wound care 11/22/16 08:36 fluid retention--improving, weight down 1 kg last night CKD stable--follow labs closely anemia with fe def--add iv iron cellulitis--looks improved this am, wound care pending s/p RTH--PT/OT and ambulation suspected VTE--US negative, LUE with marked asymmetric swelling, continue to renally adjusted treatment dose lovenox for now 11/27/16 11:14 persistent diastolic dysfunction with fluid accumulation outside of the vasculature. D/w Dr Hendricks. Add IV albumin to see if we can mobilize some of the fluid. Increase dose if tolerated. CKD--graphite pan drier tender due to IV therapy anemia--stable fe def iv iron has been given daily, will d/c cellulitis--healing hampered by edema 11/28/16 08:36 edema/fluid retention due to diastolic dysfunction, cirrhotic appearing liver ( old finding, not a drinker) Massive UOP last 24 hours with notable improvement. Appreciate cardiology involvement. Repeat a 25 gm albumin dose today CKD increasing creatinine as expected with diuresis anemia--stable iron replaced cellulitis--no real improvement with cephalexin, will d/c suspect edema more of the culprit dispo--likely return to SNF tomorrow if progress continues Subjective: The patient reports and impressive urinary output. No new c/o. No dizziness Objective: Vital Signs Temp Pulse Resp BP Pulse Ox 36.5 C 89 20 103/53 L 92 11/28/16 07:49 11/28/16 07:49 11/28/16 07:49 11/28/16 07:49 11/28/16 07:49 Laboratory Results 11/28/16 03:54 11/28/16 03:54 05/31/17 06/01/17 06/02/17 05:59 05:59 05:59 Intake Total 1315 0 Output Total 1200 3240 675 Balance 115 -1190 -675 PT 13.7 SEC (12.0-15.0) 11/21/16 16:20 INR 1.06 (0.83-1.16) 11/21/16 16:20 Gen: NAD Lungs: improved aeration Heart: RRR Abd + bs soft LE's edema improving, still prominent ICD10 Worksheet Patient Problems: Problems Problem Status Onset Chronic Disease Management/Transitional Care Program Active Closed right acetabular fracture Acute Edema Acute Fall on same level from tripping as cause of accidental injury Acute Fracture of right olecranon process Acute Hyperkalemia Acute Osteoarthritis of right hip Acute Pelvic fracture Acute
[2016-11-28] MEDS: FERROUS SULFATE 325 MG TAB PO SCH ×2 (10:23→21:26)
--- NOTE | 2016-11-28 12:38 | PDCARPN ---
Cardiology Progress Note Chief Complaint: patient reports abdomen is less firm, continues to have swelling in lower extremities. Assessment/Plan: Assessment: 86-year-old male with recent THR with Dr. Mercado ( 11/05/2016), discharge Medicare. Noted to have 10 kilos weight gain over the last few weeks with increased peripheral and scrotal edema. Also noted have should shortness of breath, and elevated BNP of greater than 4000 on admission. Echocardiogram done on 11/22 showing normal LV size and function, EF 65%, normal wall motion, mild concentric LVH, LA is moderately dilated, status post bioprosthetic mitral valve with mean gradient across the valve 4 mm of mercury, mild TR, mild aortic sclerosis with normal leaf mobility, trace AI RVSP estimated at 39 mm of mercury. Today Patient's weight is down 3 kilos from yesterday. Mild creatinine increased to 2.3. BUN up to 91. BNP remains elevated 3700, but improved since admission. Patient reporting no chest pain shortness of breath, continues to have + 3 peripheral edema to knees and thighs with venous stasis ulcers. No rales noted today physical examination, JVD 6 cm above sternal notch Plan: 1. biventricular failure: Discontinue Lasix drips. Will transition to torsemide 40 mg p.o. twice daily. Continue to monitor weight daily. Continue fluid restrictions. 2. CKD: Cr typicall at 2, Creatinine 2.3 today. Discontinue Lasix drip. BMP in am. 3. Bioprosthetic mitral valve replacement surgery in 2010: Echocardiogram showing functioning well with normal gradients 4. PAF/fl: last pacer check 10/17 without any arrhythmias, deemed unsuitable candidate for full AC due to history of falls and bleeding 5. DM: continue insulins under direction of JEFF Lamar 6. htn: BP appears controlled, no change to current medications. For candidate for ACEi or ARB due to renal function. 7. VERNA: CPAP 8. anemia: per IM, stable 9. cellulitis: per IM 10. edema/asymmetric arm swelling and leg swelling: dopplers negative for DVT 11/28/16 14:21 Subjective: The patient denies of any chest pain or shortness of breath. Denies of any lightheadedness or palpitations. Reviewed/Discussed With: hospitalist (Mike OCONNOR), other (Dr Mason) Objective: Vital Signs (8 Hrs) Temp Pulse Resp BP Pulse Ox 11/28/16 11:28 36.7 C 81 18 91/45 L 92 11/28/16 07:49 36.5 C 89 20 103/53 L 92 Intake/Output (24 Hrs) 11/27/16 11/28/16 11/29/16 05:59 05:59 05:59 Intake Total 1315 2050 195 Output Total 1200 3240 850 Balance 115 -1190 -655 Intake: Oral (ml) 1150 1500 IV Intake (ml) 75 40 IV Infused (ml) 165 475 155 Albumin 25% 100 ml @ As 100 Directed IV ONCE ONE Rx#: [id number] Albumin 25% 100 ml @ 100 Titrate IV ONCE ONE Rx#: [id number] Furosemide 100 mg In D5w 15 10 100 ml @ 5 mls/hr IV CONT [facility] Rx#:[id number] Furosemide 100 mg In D5w 150 100 ml @ 7.5 MG/HR 7.5 mls/hr IV CONT [facility] Rx#: [id number] Sodium Ferric Gluconat/ 100 110 Sucrose 125 mg In Ns 100 ml @ 110 mls/hr IV DAILY [facility] Rx#:[id number] ceFAZolin 0.5 gm In D5w 50 105 55 50 ml @ 200 mls/hr IV Q12HRS [facility] Rx#:[id number] Output: Urine (ml) 1200 3240 850 Urinal 1200 3240 850 Other: Weight 75.2 kg 72.1 kg Output Comment Diapers/Briefs missed/spilled urinal Number of Voids Diapers/Briefs 2 1 Urinal 2 2 1 Number of Stools Toilet 1 Post Void Residual Scan Volume (ml) Urinal 62 Result Diagrams: 11/28/16 03:54 11/28/16 03:54 - Physical Exam Constitutional: no apparent distress, other (elder male) Ears, Nose, Mouth, Throat: moist mucous membranes Cardiovascular: regular rate and rhythm, no rubs, no gallops, jugular vein distention (4-5 cm above sternal notch) Respiratory: other ( Lungs are clear, but diminished in bases bilateral, no rhonchi, rales, or wheezing noted.) Gastrointestinal: normoactive bowel sounds Skin: warm, No no edema ( +3 peripheral edema both lower extremities to thighs.) Neurologic: AAOx3 Psychiatric: cooperative, interactive ICD10 Worksheet Patient Problems: Problems Problem Status Onset Edema Acute Hyperkalemia Acute Osteoarthritis of right hip Acute Chronic Disease Management/Transitional Care Program Active Fall on same level from tripping as cause of accidental injury Acute Fracture of right olecranon process Acute Closed right acetabular fracture Acute Pelvic fracture Acute
[2016-11-28] MEDS: TORSEMIDE 20 MG TAB PO SCH (14:51)
[2016-11-28] MEDS: oxyCODONE IR 5 MG TAB PO PRN (21:25)
[2016-11-28] MEDS: PRAVASTATIN SODIUM 20 MG TAB PO SCH (21:26)
[2016-11-29 05:04] LABS: ANION GAP 8 mEq/L (8-16); CALCIUM 8.4 mg/dL (8.5-10.4); CARBON DIOXIDE 30 mEq/l (22-31); CHLORIDE 95 mEq/L (97-110); CREATININE 2.2 mg/dL (0.7-1.3); GLOMERULAR FILTRATION RATE 28; GLUCOSE 73 mg/dL (70-100); SODIUM 133 mEq/L (134-144)
[2016-11-29 07:44] VITALS: BP 108/56; PULSE 143; RESP 18; TEMP 97.8; O2SAT 93
[2016-11-29] MEDS: ASPIRIN 325 MG TAB PO SCH (07:49)
[2016-11-29] MEDS: METOPROLOL SUCCINATE XR 25 MG TAB PO SCH (07:49)
[2016-11-29] MEDS: ALLOPURINOL 100 MG TAB PO SCH (07:49)
[2016-11-29] MEDS: FERROUS SULFATE 325 MG TAB PO SCH (07:49)
[2016-11-29] MEDS: TORSEMIDE 20 MG TAB PO SCH (07:49)
[2016-11-29] MEDS: PANCREAZE PO SCH (07:49)
[2016-11-29] MEDS: MAGNESIUM OXIDE 400 MG TAB PO SCH (07:49)
[2016-11-29] MEDS: MULTIVITAMINS 1 EACH TAB PO SCH (07:50)
[2016-11-29] MEDS: PANTOPRAZOLE SODIUM 40 MG TAB PO SCH (07:50)
[2016-11-29] MEDS: INSULIN GLARGINE 100 UNITS/ML SYRINGE SC SCH (07:51)
[2016-11-29] MEDS: INSULIN REGULAR, HUMAN 100 UNIT/1 ML VIAL STANDARD SC SCH (07:52)
--- NOTE | 2016-11-29 08:44 | SOAPPROG ---
SOAP Progress Note Assessment/Plan: Assessment: Plan: 11/21/16 18:21 marked fluid retention--weight reportedly up 20 lbs--will start with 20 mg IV lasix BID, potassium was elevated earlier in the week. CKD baseline Cr 1.6-2.0 h/o creatinine elevations anatomic cirrhotic appearing liver--no h/o etoh use anemia r/o DVT--preliminary negative. Will no check CTA due to CKD treatment dose of lovenox renally adjusted cellulitis--smoldering add ancef, wound care 11/22/16 08:36 fluid retention--improving, weight down 1 kg last night CKD stable--follow labs closely anemia with fe def--add iv iron cellulitis--looks improved this am, wound care pending s/p RTH--PT/OT and ambulation suspected VTE--US negative, LUE with marked asymmetric swelling, continue to renally adjusted treatment dose lovenox for now 11/27/16 11:14 persistent diastolic dysfunction with fluid accumulation outside of the vasculature. D/w Dr Hendricks. Add IV albumin to see if we can mobilize some of the fluid. Increase dose if tolerated. CKD--bobbin drier due to IV therapy anemia--stable fe def iv iron has been given daily, will d/c cellulitis--healing hampered by edema 11/28/16 08:36 edema/fluid retention due to diastolic dysfunction, cirrhotic appearing liver ( old finding, not a drinker) Massive UOP last 24 hours with notable improvement. Appreciate cardiology involvement. Repeat a 25 gm albumin dose today CKD increasing creatinine as expected with diuresis anemia--stable iron replaced cellulitis--no real improvement with cephalexin, will d/c suspect edema more of the culprit dispo--likely return to SNF tomorrow if progress continues 11/29/16 08:43 diastolic dysfunction with marked fluid retention, improving nicely. Will continue current torsemide Rx and transfer back to SNF s/p RTHA--SNF PT/OT LE's wounds--continue topical wound care anemia--stable, iron replaced CKD--fairly stable given large diuretic loads Subjective: Brisk UOP, doing better Objective: Vital Signs Temp Pulse Resp BP Pulse Ox 36.6 C 143 H 18 108/56 L 93 11/29/16 07:43 11/29/16 07:43 11/29/16 07:43 11/29/16 07:43 11/29/16 07:43 Laboratory Results 11/28/16 03:54 11/29/16 03:55 11/28/16 11/29/16 11/30/16 05:59 05:59 05:59 Intake Total 2049 745 Output Total 3240 4150 325 Balance -1190 -3405 -325 PT 13.7 SEC (12.0-15.0) 11/21/16 16:20 INR 1.06 (0.83-1.16) 11/21/16 16:20 Gen: brighter, comfortable Lungs: improved aeration Heart: RRR LE's continually reducing edema, scrotal edema improving, LUE markedly better Weight continually dropping CKD labs stable ICD10 Worksheet Patient Problems: Problems Problem Status Onset Chronic Disease Management/Transitional Care Program Active Closed right acetabular fracture Acute Edema Acute Fall on same level from tripping as cause of accidental injury Acute Fracture of right olecranon process Acute Hyperkalemia Acute Osteoarthritis of right hip Acute Pelvic fracture Acute
--- NOTE | 2016-11-29 08:49 | PDIAF ---
- Diagnosis Diagnosis: diastolic dysfunction with fluid retention, LE's wounds, anemia, RTHA Code Status: Full Code - Medication Management Discharge Medications: Medications to Continue on Transfer Acetaminophen [Tylenol 325mg (*)] 650 mg PO Q6 PRN MDD 3GM IN 24 HOURS 11/21/16 [Last Taken Unknown] Allopurinol [Allopurinol 100 MG (*)] 100 mg PO BID 11/21/16 [Last Taken Unknown] Aspirin [Aspirin 325 mg (*)] 325 mg PO DAILY 11/21/16 [Last Taken Unknown] Docusate Sodium [Colace 100 MG (*)] 100 mg PO BID PRN 11/21/16 [Last Taken Unknown] Ferrous Sulfate [Ferrous Sulf 325 MG (*)] 325 mg PO BID 11/21/16 [Last Taken Unknown] Herbals/Supplements -Info Only 1 ea PO DAILY 11/21/16 [Last Taken Unknown] Insulin Glargine [Lantus 100 UNITS/ML (*)] 10 units SC DAILY 11/21/16 [Last Taken Unknown] Lipase/Protease/Amylase [Shellie Rojas 16,800 Unit Cap] 1 each PO TID 11/21/16 [ Last Taken Unknown] Magnesium Oxide [Magnesium Oxide 400 mg (*)] 400 mg PO DAILY 11/21/16 [Last Taken Unknown] Metoprolol Succinate Xr [Toprol Xl 25 mg (*)] 25 mg PO DAILY 11/21/16 [Last Taken Unknown] Multivitamins [Multivitamin (*)] 1 each PO DAILY 11/21/16 [Last Taken Unknown] Ondansetron Odt [Zofran Odt 4 mg (*)] 4 mg PO Q4 PRN 11/21/16 [Last Taken Unknown] Simvastatin 10 mg PO HS 11/21/16 [Last Taken Unknown] oxyCODONE IR [Oxycodone Ir (*)] 5 mg PO Q3H PRN 11/21/16 [Last Taken Unknown] traMADol [Ultram 50 mg (*)] 50 mg PO Q6 PRN 11/21/16 [Last Taken Unknown] Enoxaparin [Lovenox] 30 mg SC DAILY #0 syr 11/29/16 [Last Taken Unknown] Ferrous Sulfate [Ferrous Sulf 325 MG (*)] 325 mg PO BID #0 tab 11/29/16 [Last Taken Unknown] Nystatin Powder [Mycostatin Powder] 1 clarissa TP TID PRN #0 powder 11/29/16 [Last Taken Unknown] Pantoprazole Sodium [Protonix 40mg (*)] 40 mg PO DAILY #0 tab 11/29/16 [Last Taken Unknown] Torsemide [Demadex] 40 mg PO BIDDIUR #0 tab 11/29/16 [Last Taken Unknown] Fpc Antibiotics: na Discharge Medications: Refer to the Discharge Home Medication list for PRN reason. PICC Care - Routine: N/A - Orders Services needed: Physical Therapy, Occupational Therapy Diet Recommendation: sodium restricted Diet Texture: Regular Texture Diet Weigh Patient: daily Wound Care Instructions: please forward instructions - Labs/Radiology BMP Date: 12/03/16 (please fax to [phone]) CBC Date: 12/03/16 - Follow Up Care Current Providers and Referrals: Semaj Hendricks MD [Primary Care Provider] -
[2016-11-29] MEDS ORDERED: ENOXAPARIN 30 MG/0.3 ML SYR SC SCH (09:00)
--- NOTE | 2016-11-29 09:16 | GDS ---
[f rep st] DISCHARGE SUMMARY REASON FOR ADMISSION: Significant fluid overload. DISCHARGE DIAGNOSES: 1. Diastolic dysfunction, preserved ejection fraction with marked fluid retention, improved after a ggressive diuresis. 2. Anemia secondary to iron deficiency, improved after 1 unit of packed red blood cells and iron re placement. 3. Diabetes, stable. 4. Chronic kidney disease, fairly stable given aggressive diuretic doses he received during the hos pitalization. Baseline creatinine is around 1.8. He is currently at 2.2. He will be transferred back to [facility], to continue rehab for his right total hip r eplacement. He has had wound care during his hospital stay with some improvement and chronic lower extremity wounds. He was on low-dose cephalexin, which did not seem to make much difference in chronometer tester aj lower extremity erythema, underlying edema, as that has improved, has caused some improvement in underlying erythema. Significant 20-pound excessive fluid accumulation has improved significantly. He is down 12-15 pounds during his hospital stay. He will return to [facility] facility, hav e outpatient labs checked in about 5 days, and continue with his rehab until he is safe to go home. /[id number]/MODL
== END 2016-11-29 11:13 | DRG 292 ==
LOC: F2W 15:52 → OBSVTOIN 15:52
PROVIDERS: ADMIT Internal Medicine; ATTEND Internal Medicine
PROC: 30233N1 Transfusion of Nonautologous Red Blood Cells into Peripheral Vein, Percutaneous Approach (ICD-10-PCS; principal; 2016-11-25)
DX: I50.31 Acute diastolic (congestive) heart failure (principal); I13.0 Hypertensive heart and chronic kidney disease with heart failure and stage 1 through stage 4 chronic kidney disease, or unspecified chronic kidney disease; L03.115 Cellulitis of right lower limb; N18.9 Chronic kidney disease, unspecified; E11.9 Type 2 diabetes mellitus without complications; G47.33 Obstructive sleep apnea (adult) (pediatric); D50.9 Iron deficiency anemia, unspecified; Z95.3 Presence of xenogenic heart valve; Z96.641 Presence of right artificial hip joint; Z79.4 Long term (current) use of insulin; Z79.82 Long term (current) use of aspirin; Z95.0 Presence of cardiac pacemaker
CPT/HCPCS: 96374; 97110-GP; 97116-GP; 97161-GP; 97530-GP; G8978-GP-CJ; G8979-GP-CI; J0690; J1650; J1815; J1940; J2916; P9016; P9047

== ENCOUNTER 2017-08-21 21:28 | Emergency (ER) | payer OTHER, BC ==
--- NOTE | 2017-08-21 22:23 | EDPHY ---
H & P Stated Complaint: Had carcinoma removed from head today, still bleeding. Time Seen by Provider: 08/21/17 21:59 HPI/ROS: HPI The patient presents with bleeding for the last 1 hr from a head wound. Earlier in the day he had removal with cauterization of some sort of skin cancer. He was doing fine, then began to have bleeding which has gotten progressively worse and not improved with pressure applied to the wound for 10 min. He is on aspirin 325 mg. He is not on any other medications that are expected to affect his coagulation. REVIEW OF SYSTEMS Constitutional: No fever, no chills. Eyes: No discharge. ENT: No sore throat. Cardiovascular: No chest pain, no palpitations. Respiratory: No cough, no shortness of breath. Gastrointestinal: No abdominal pain, no vomiting. Genitourinary: No hematuria. Musculoskeletal: No back pain. Skin: No rashes. Neurological: No headache. PMHx: Diabetes, anemia, chronic kidney disease, scalp skin CA Soc Hx: Lives at home with family PHYSICAL General Appearance: Alert, no distress Eyes: Pupils equal and round no pallor or injection ENT, Mouth: Mucous membranes moist Respiratory: There are no retractions, lungs are clear to auscultation Cardiovascular: Regular rate and rhythm Gastrointestinal: Abdomen is soft and non-tender, no masses, bowel sounds normal Neurological: A&O, moves all extremities Skin: Occipital scalp with active oozing from under a bandage Musculoskeletal: Neck is supple non tender Extremities: symmetrical, full range of motion Psychiatric: Patient is oriented X 3, there is no agitation Source: Patient Exam Limitations: No limitations - Personal History Current Tetanus/Diphtheria Vaccine: Yes Current Tetanus Diphtheria and Acellular Pertussis (TDAP): Yes Tetanus Vaccine Date: 2008 - Medical/Surgical History Hx Asthma: No Hx Chronic Respiratory Disease: No Hx Diabetes: Yes Hx Cardiac Disease: Yes Hx Renal Disease: No Hx Cirrhosis: No Hx Alcoholism: No Hx HIV/AIDS: No Hx Splenectomy or Spleen Trauma: No Other PMH: Valve replacement, pacemaker, bilateral knee surgery by Dr. Mercado, Diabetes,anemia,CRI, R total hip, VERNA, falls, lap ruddy. - Social History Smoking Status: Never smoked Constitutional: Initial Vital Signs Temperature (C) 36.9 C 08/21/17 21:30 Heart Rate 105 H 08/21/17 21:30 Respiratory Rate 17 18 21:30 Blood Pressure 134/100 H 08/21/17 21:30 O2 Sat (%) 91 L 08/21/17 21:30 O2 Delivery Mode Room Air Allergies/Adverse Reactions: No Known Allergies Allergy (Verified 10/08/16 16:15) Home Medications: Medication Instructions Recorded Allopurinol [Allopurinol 100 MG 100 mg PO BID 11/21/16 (*)] Aspirin [Aspirin 325 mg (*)] 325 mg PO DAILY 11/21/16 Docusate Sodium [Colace 100 MG (*)] 100 mg PO BID PRN 11/21/16 Insulin Glargine [Lantus 100 10 units SC DAILY 11/21/16 UNITS/ML (*)] Lipase/Protease/Amylase [Pancreaze 1 each PO TID 11/21/16 16,800 Unit Cap] Magnesium Oxide [Magnesium Oxide 400 mg PO DAILY 11/21/16 400 mg (*)] Metoprolol Succinate Xr [Toprol Xl 25 mg PO DAILY 11/21/16 25 mg (*)] Multivitamins [Multivitamin (*)] 1 each PO DAILY 11/21/16 Simvastatin 10 mg PO HS 11/21/16 Ferrous Sulfate [Ferrous Sulf 325 325 mg PO BID #0 tab 11/29/16 MG (*)] Niacin 08/21/17 Omeprazole 08/21/17 Medical Decision Making Differential Diagnosis: This is an 86-year-old male on aspirin 325 mg daily who underwent cauterization of a scalp skin cancer earlier today who now has ongoing bleeding from his dressing. On exam, there is a slow ooze from the left side of his bandage. In the emergency department, the wound was irrigated. We were able to remove a portion of the Band-Aid to reveal a slow ooze on the left side of the wound. This was packed with Gelfoam and then Kerlix pressure dressing was applied. Bleeding unfortunately reoccurred. We then removed the entire Band-Aid and were able to localize a 1 cm circular area with ongoing oozing. This was packed with more Gel-Foam and pressure was held for 10 min. Then, bleeding subsided. The patient was able to walk around the emergency room with no further bleeding. He will be discharged home. - Data Points Medications Given: Discontinued Medications Ondansetron HCl (Zofran) 4 mg IVP EDNOW ONE Stop: 08/21/17 23:29 Last Admin: 08/21/17 23:58 Dose: Not Given Tranexamic Acid (Cyklokapron) 500 mg TP EDNOW ONE Stop: 08/21/17 23:57 Last Admin: 08/22/17 00:50 Dose: Not Given Departure - Departure Disposition: Home, Routine, Self-Care Clinical Impression: Bleeding from wound Condition: Good Instructions: Acute Wounds (ED) Referrals: Semaj Hendricks MD [Primary Care Provider] - As per Instructions
[2017-08-21] MEDS ORDERED: HYDROGEN PEROXIDE 236 ML BOTTLE TP ONE (22:53)
[2017-08-21] MEDS ORDERED: ONDANSETRON 4 MG/2 ML VIAL IVP ONE (23:28)
[2017-08-22] MEDS: TRANEXAMIC ACID 1,000 MG/10 ML VIAL TP ONE ×2 (00:08→00:50)
[2017-08-22 00:55] VITALS: BP 112/75; PULSE 75; RESP 18; TEMP 98.2; O2SAT 97
== END 2017-08-22 00:55 | disposition home or self-care (01) ==
DX: L76.22 Postprocedural hemorrhage of skin and subcutaneous tissue following other procedure (principal); E11.9 Type 2 diabetes mellitus without complications; N18.9 Chronic kidney disease, unspecified; Z79.82 Long term (current) use of aspirin; Z79.4 Long term (current) use of insulin; Z95.0 Presence of cardiac pacemaker

== ENCOUNTER 2017-09-11 13:03 | Inpatient (IN) | payer OTHER, BC ==
--- NOTE | 2017-09-11 13:02 | EDPHY ---
Medical Decision Making ED Course/Re-evaluation: CHIEF COMPLAINT: HISTORY OF PRESENT ILLNESS: must have 4 elements: Location, Quality, Severity , Duration, Timing, Context, Modifying Factors, Associated Signs and Symptoms REVIEW OF SYSTEMS: A 10 point review of systems was performed and is negative with the exception of the elements mentioned in the history of present illness. PHYSICAL EXAM: HR, BP, O2 Sat, RR. Temp noted General Appearance: Alert, well hydrated, appropriate, and non-toxic appearing. Head: Atraumatic without scalp tenderness or obvious injury Eyes: Pupils equal, round, reactive to light and accommodation, EOMI, no trauma , no injection. Ears: Clear bilaterally, no perforation, normal landmarks Nose: Atraumatic, no rhinorrhea, clear. Throat: There is no erythema or exudates, no lesions, normal tonsils, mucus membranes moist. Neck: Supple, 2+ carotid upstroke, nontender, no lymphadenopathy. Respiratory: No retractions, no distress, no wheezes, and no accessory muscle use. Lungs are clear to auscultation bilaterally. Cardiovascular: Regular rate and rhythm, no murmurs, rubs, or gallops. Bilateral carotid, radial, dorsalis pedis, and posterior tibial pulses intact. Good capillary refill all extremities. Gastrointestinal: Abdomen is soft, nontender, non-distended, no masses, no rebound, no guarding, no peritoneal signs. Musculoskeletal: Normal active ROM of all extremities, atraumatic. Neurological: Alert, appropriate, and interactive. The patient has normal DTRs and non-focal cranial nerves, motor, sensory, and cerebellar exam. Skin: No rashes, good turgor, no nodules on palpation. Past medical history: Past surgical history: Family history: Social history: DIAGNOSTICS/PROCEDURES/CRITICAL CARE TIME: DIFFERENTIAL DIAGNOSIS: MEDICAL DECISION MAKING:
--- NOTE | 2017-09-11 13:22 | EDPHY ---
H & P Time Seen by Provider: 09/11/17 13:11 HPI/ROS: CHIEF COMPLAINT: Weakness. HISTORY OF PRESENT ILLNESS: This patient is an 86 y/o male arriving via EMS for evaluation of weakness. Today, he fell out of bed and his son found him on the floor. His sons were unable to help him up and he complained of leg pain. They spoke with Dr. Quach's office, recommended presentation to ED. Patient has followed up with infectious disease and the wound clinic for extremity venous stasis changes with probable underlying bullous pemphigus. He states his legs "just started hurting again" and complains of considerable pain in his calf. He is currently taking 20mg Prednisone daily, and completed a course of doxycycline and niacinamide. His son at bedside states his right leg appears more red and swollen than usual today, and that redness extending up the patient's thigh appears to be new. The patient has felt ill for the last two days with cold symptoms including cough. He has felt somewhat short of breath. Uses home oxygen at night. He has history of pneumonia, but his current symptoms do not feel similar to that. He has not eaten today. His son is unsure whether he has taken any of his regular medications yet. No chest pain, vomiting, diarrhea, or other associated symptoms. REVIEW OF SYSTEMS: A 10 point review of systems was performed and is negative with the exception of the elements mentioned in the history of present illness. Past Medical/Surgical History: Chronic kidney disease Diabetes Mellitus Type II Pacemaker History of skin cancer Bilateral hip replacements Atrial fibrillation Bullous pemphigus Social History: Son at bedside. Lives at home. . Smoking Status: Never smoked Physical Exam: General Appearance: Alert, chronically ill appearing, temp 38.0 Eyes: Pupils equal and round, no conjunctival pallor ENT, Mouth: Mucous membranes dry Neck: Normal inspection Respiratory: rales at the bases Cardiovascular: Regular rate and rhythm Gastrointestinal: Abdomen is soft and non-tender Neurological: A&O, nonfocal exam Skin: open wound lateral aspect of RLE, serous drainage Extremities: erythema, warmth, and tenderness to right calf extending up lateral aspect of thigh; LLE-mild erythema and swelling, no tenderness Psychiatric: Mood and affect normal Constitutional: Initial Vital Signs Temperature (C) 38.0 C 09/11/17 13:09 Heart Rate 110 H 09/11/17 13:09 Respiratory Rate 18 09/11/17 13:09 Blood Pressure 127/59 H 09/11/17 13:09 O2 Sat (%) 90 L 09/11/17 13:09 O2 Delivery Mode Nasal Cannula O2 (L/minute) 2 Allergies/Adverse Reactions: No Known Allergies Allergy (Verified 10/08/16 16:15) Home Medications: Medication Instructions Recorded Allopurinol [Allopurinol 100 MG 100 mg PO BID 11/21/16 (*)] Docusate Sodium [Colace 100 MG (*)] 200 mg PO BID 11/21/16 Insulin Glargine [Lantus 100 32 units SC HS 11/21/16 UNITS/ML (*)] Lipase/Protease/Amylase [Pancreaze 1 each PO TIDMEAL 11/21/16 16,800 Unit Cap] Magnesium Oxide [Magnesium Oxide 400 mg PO DAILY 11/21/16 400 mg (*)] Metoprolol Succinate Xr [Toprol Xl 25 mg PO DAILY 11/21/16 25 mg (*)] Multivitamins [Multivitamin (*)] 1 each PO DAILY 11/21/16 Simvastatin 10 mg PO HS 11/21/16 Ferrous Sulfate [Ferrous Sulf 325 325 mg PO BID #0 tab 11/29/16 MG (*)] Niacin [Niacin 500 mg (*)] 500 mg PO HS 08/21/17 Omeprazole 20 mg PO DAILY 08/21/17 Acetaminophen [Tylenol ES 500 mg 1,000 mg PO Q6 PRN 09/11/17 (*)] Ascorbic Acid [Vitamin C 500 mg 250 mg PO BID 09/11/17 (*)] Aspirin [Aspirin 81mg (*)] 81 mg PO DAILY 09/11/17 Bumetanide [Bumex (*)] 1 mg PO DAILY 09/11/17 Cetirizine [ZyrTEC 10 mg (*)] 10 mg PO DAILY 09/11/17 Diclofenac Sodium 1% [Voltaren Gel 1 clarissa TP QID 09/11/17 (*)] Doxycycline Hyclate [Vibramycin 100 mg PO DAILY 09/11/17 100 MG (*)] Montelukast Sodium [Singulair 10 10 mg PO HS 09/11/17 mg (*)] Sildenafil Citrate [Revatio 20 MG 20 mg PO TID 09/11/17 (*)] Triamcinolone 0.1% [Triamcinolone 1 clarissa TP TID PRN 09/11/17 0.1% Cream (*)] diphenhydrAMINE [Benadryl 25 MG 25 mg PO HS 09/11/17 (*)] predniSONE 20 mg PO DAILY 09/11/17 traMADol [Ultram 50 mg (*)] 50 mg PO Q6HRS PRN 09/11/17 Medical Decision Making - Diagnostics EKG Interpretation: EKG interpreted by me reveals atrial fibrillation, ventricular rate 125, borderline R-wave progression. Imaging Results: Chest X-Ray 09/11/17 13:14 Impression: 1. Patchy bilateral groundglass attenuation infiltrates can be seen with mild fluid overload/pulmonary edema versus possibility of bilateral pneumonitis or pneumonia. 2. Persistent mild elevation of the right hemidiaphragm. ED Course/Re-evaluation: This pt presents with generalized weakness and fever. On physical exam he has right lower extremity erythema extending up to his upper thigh, consistent with cellulitis. Wound culture and blood cultures sent. Meets SIRS criteria with tachycardia and fever. Initial lactate is 2.1. Repeat lactate 1.2. IV normal saline 1 L and Tylenol 650 mg orally given. I consulted Mike Adams, who will admit the patient for cellulitis and sepsis. He requests IV vancomycin because the patient has a history of MRSA. However, the patient's creatinine is 2.6. I consulted Dr. Neto Mccurdy for approval of daptomycin, he concurs. Daptomycin 350mg IV given. Serial exams unchanged. BP normal throughout ED stay, no evidence of worsening sepsis. EKG: Afib, rate 125; pt's HR mainly 100- 110. Will observe for now, give IVF and Tylenol for fever. Troponin elevated at 0.3, EKG reviewed, no acute changes. Reviewed prior troponins; trop never this high, so unlikely secondary to CRF. Pt denies chest pain. Concern for ACS. Will admit to tele for further cardiac evaluation. Pt' s BP stable throughout my ED shift, HR remained 100-110. Differential Diagnosis: Differential diagnosis includes pyelonephritis, cholecystitis, influenza, cellulitis, pneumonia, abscess, meningitis. - Data Points Laboratory Results: Laboratory Results 09/11/17 13:20 09/11/17 13:20 Microbiology Results: MICROBIOLOGY 09/11/17 13:20 Blood Blood Culture - Preliminary MRSA 09/11/17 13:20 Blood Blood Panel (PCR) - Final MRSA 09/11/17 13:38 Blood Blood Culture - Preliminary MRSA 09/11/17 13:30 Leg - Swab Gram Stain - Final 09/11/17 13:30 Leg - Swab Wound Culture - Preliminary MRSA Medications Given: Acetaminophen (Tylenol) 650 mg PO Q4HRS PRN PRN Reason: Pain, Mild/Fever, Can Take PO Stop: 03/10/18 16:01 Last Admin: 09/12/17 02:34 Dose: 650 mg Allopurinol (Allopurinol) 100 mg PO BID ERVIN Stop: 03/10/18 20:59 Last Admin: 09/12/17 20:51 Dose: 100 mg Lipase/Protease/Amylase (Pancreaze) 1 cap PO TIDMEAL ERVIN Stop: 03/10/18 17:59 Last Admin: 09/12/17 18:42 Dose: 1 cap Ascorbic Acid (Vitamin C) 250 mg PO BID ERVIN Stop: 03/10/18 20:59 Last Admin: 09/12/17 20:51 Dose: 250 mg Aspirin (Aspirin) 81 mg PO DAILY ERVIN Stop: 03/11/18 08:59 Last Admin: 09/12/17 09:54 Dose: 81 mg Cetirizine HCl (Zyrtec) 10 mg PO DAILY ERVIN Stop: 03/11/18 08:59 Last Admin: 09/12/17 09:55 Dose: 10 mg Diclofenac Sodium (Diclofenac Sodium 1% Gel) 1 gm TP QID ERVIN Stop: 03/10/18 20:59 Last Admin: 09/13/17 05:12 Dose: 1 gm Diphenhydramine HCl (Benadryl) 25 mg PO HS ERVIN Stop: 03/10/18 20:59 Last Admin: 09/12/17 20:51 Dose: 25 mg Docusate Sodium (Colace) 200 mg PO BID ERVIN Stop: 03/10/18 20:59 Last Admin: 09/12/17 20:51 Dose: 200 mg Enoxaparin Sodium (Lovenox) 30 mg SC DAILY ERVIN Stop: 03/11/18 08:59 Last Admin: 09/12/17 09:49 Dose: 30 mg Ferrous Sulfate (Ferrous Sulfate) 325 mg PO BID ERVIN Stop: 03/10/18 20:59 Last Admin: 09/12/17 20:51 Dose: 325 mg Sodium Chloride (Ns) 1,000 mls @ 75 mls/hr IV CONT ERVIN Stop: 03/10/18 16:14 Last Admin: 09/13/17 06:13 Dose: 1,000 mls Insulin Glargine (Lantus Syringe) 34 units SC HS ERVIN Stop: 03/10/18 20:59 Last Admin: 09/12/17 20:52 Dose: 34 units Insulin Human Lispro (Humalog Lispro) 0 unit SC TIDMEAL ERVIN PRN Reason: Protocol Stop: 03/10/18 17:59 Last Admin: 09/12/17 18:42 Dose: 10 units Magnesium Oxide (Magnesium Oxide) 400 mg PO DAILY ERVIN Stop: 03/11/18 08:59 Last Admin: 09/12/17 09:56 Dose: 400 mg Metoprolol Succinate (Toprol Xl) 25 mg PO DAILY ERVIN Stop: 03/10/18 16:14 Last Admin: 09/12/17 09:55 Dose: 25 mg Montelukast Sodium (Singulair) 10 mg PO HS ERVIN Stop: 03/10/18 20:59 Last Admin: 09/12/17 20:51 Dose: 10 mg Multivitamins (Tab-A-Lizeth) 1 each PO DAILY ERVIN Stop: 03/11/18 08:59 Last Admin: 09/12/17 09:56 Dose: 1 each Niacin (Niacin) 500 mg PO HS [facility] Stop: 03/10/18 20:59 Last Admin: 09/12/17 20:51 Dose: 500 mg Pantoprazole Sodium (Protonix) 40 mg PO DAILY ERVIN Stop: 03/10/18 17:29 Last Admin: 09/12/17 09:53 Dose: 40 mg Pravastatin Sodium (Pravachol) 20 mg PO HS ERVIN Stop: 03/10/18 20:59 Last Admin: 09/11/17 22:09 Dose: 20 mg Prednisone (Prednisone) 20 mg PO DAILY [facility] Stop: 03/10/18 16:14 Last Admin: 09/12/17 09:56 Dose: 20 mg Senna/Docusate Sodium (Senokot-S) 1 - 2 tab PO BID ERVIN PRN Reason: Protocol Stop: 03/10/18 20:59 Last Admin: 09/12/17 20:52 Dose: 2 tab Sildenafil Citrate (Revatio) 20 mg PO TID [facility] Stop: 03/10/18 21:59 Last Admin: 09/12/17 20:51 Dose: 20 mg Tramadol HCl (Ultram) 50 mg PO Q6HRS PRN PRN Reason: Pain, Moderate Stop: 03/10/18 16:09 Last Admin: 09/12/17 16:13 Dose: 50 mg Discontinued Medications Acetaminophen (Tylenol) 650 mg PO EDNOW ONE Stop: 09/11/17 13:35 Last Admin: 09/11/17 13:49 Dose: 650 mg Doxycycline Hyclate (Doxycycline Hyclate) 100 mg PO DAILY ERVIN PRN Reason: Protocol Stop: 10/12/17 08:59 Last Admin: 09/12/17 09:54 Dose: 100 mg Cefazolin Sodium/Dextrose (Ancef 1 Gm (Premix)) 50 mls @ 200 mls/hr IV EDNOW ONE PRN Reason: Protocol Stop: 09/11/17 13:49 Last Admin: 09/11/17 13:47 Dose: 50 mls Sodium Chloride (Ns) 1,000 mls @ 0 mls/hr IV ONCE ONE; Wide Open PRN Reason: Protocol Stop: 09/11/17 13:41 Last Admin: 09/11/17 13:47 Dose: 1,000 mls Daptomycin 350 mg/ Sodium (Chloride) 7 mls @ 210 mls/hr IV EDNOW ONE Stop: 09/11/17 14:31 Last Admin: 09/11/17 14:47 Dose: 7 mls Sodium Chloride (Ns) 500 mls @ 0 mls/hr IV ONCE ONE Stop: 09/11/17 17:31 Last Admin: 09/11/17 17:10 Dose: 500 mls Cefazolin Sodium/Dextrose (Ancef 1 Gm (Premix)) 50 mls @ 200 mls/hr IV Q12H ERVIN PRN Reason: Protocol Stop: 10/12/17 01:59 Last Admin: 09/12/17 02:00 Dose: 50 mls Insulin Glargine (Lantus Syringe) 32 units SC HS [facility] Stop: 03/10/18 20:59 Last Admin: 09/11/17 22:08 Dose: 32 units Departure - Departure Disposition: [facility] Acute Clinical Impression: Elevated troponin Cellulitis Qualifiers: Site of cellulitis: extremity Site of cellulitis of extremity: lower extremity Laterality: right Qualified Code(s): L03.115 - Cellulitis of right lower limb Condition: Fair Report Scribed for: Ramandeep Junior Report Scribed by: Kathi Duvall Date of Report: 09/11/17 Time of Report: 13:22 Physician Review and Approval Statement: 09/11/17 13:22 Portions of this note were transcribed by a medical imaging specialist. I personally performed a history, physical exam, medical decision making, and confirmed accuracy of information the transcribed note.
[2017-09-11] MEDS ORDERED: ACETAMINOPHEN 325 MG TAB PO ONE (13:34)
[2017-09-11 13:35] LABS: PLATELET COUNT 70 10^3/uL (150-400)
[2017-09-11] MEDS ORDERED: NS 1,000 ML IV ONE (13:40)
[2017-09-11] MEDS ORDERED: DAPTOmycin 350 MG in NS 100 ML IV ONE (13:54)
--- NOTE | 2017-09-11 14:13 | CPEKG ---
Heart Rate: 125 RR Interval: 480 QRSD Interval: 100 QT Interval: 312 QTC Interval: 450 QRS [place]: -64 T Wave [place]: 144 EKG Severity - ABNORMAL ECG - EKG Impression: ATRIAL FIBRILLATION EKG Impression: LAD, CONSIDER LEFT ANTERIOR FASCICULAR BLOCK EKG Impression: BORDERLINE R WAVE PROGRESSION, ANTERIOR LEADS EKG Impression: REPOLARIZATION ABNORMALITY, PROB RATE RELATED Electronically Signed By: Ramandeep Junior 11-Sep-2017 14:54:07
--- NOTE | 2017-09-11 14:13 | CPEKG ---
Heart Rate: 114 RR Interval: 526 QRSD Interval: 106 QT Interval: 372 QTC Interval: 513 QRS [place]: -82 T Wave [place]: 181 EKG Severity - ABNORMAL ECG - EKG Impression: AFIB/FLUT AND V-PACED COMPLEXES EKG Impression: LAD, CONSIDER LEFT ANTERIOR FASCICULAR BLOCK EKG Impression: LVH WITH SECONDARY REPOLARIZATION ABNORMALITY EKG Impression: PROLONGED QT INTERVAL Electronically Signed By: Ramandeep Junior 11-Sep-2017 14:53:51
[2017-09-11] MEDS ORDERED: DAPTOMYCIN IV ONE (14:30)
[2017-09-11] MEDS ORDERED: NS IV ONE (14:30)
[2017-09-11] MEDS ORDERED: ONDANSETRON DISINTEGRATING 4 MG TAB PO PRN (16:02)
[2017-09-11] MEDS ORDERED: D50W 25 GM/50 ML VIAL IVP PRN ×2 (16:02→17:46)
[2017-09-11] MEDS ORDERED: POLYETHYLENE GLYCOL 3350 17 GM PKT PO PRN (16:02)
[2017-09-11] MEDS ORDERED: ONDANSETRON 4 MG/2 ML VIAL IVP PRN (16:02)
[2017-09-11] MEDS ORDERED: LACTULOSE 20 GM/30 ML UDCUP PO PRN (16:02)
[2017-09-11] MEDS ORDERED: MAGNESIUM HYDROXIDE 30 ML UDCUP PO PRN (16:02)
[2017-09-11] MEDS ORDERED: BISACODYL 10 MG SUPP PR PRN (16:02)
[2017-09-11] MEDS ORDERED: TRIAMCINOLONE 0.1% 15 GM CRTUBE TP PRN (16:10)
--- NOTE | 2017-09-11 16:34 | SOAPPROG ---
SOAP Progress Note Assessment/Plan: Assessment: Plan: 09/11/17 17:02 RLE Cellulitis: While he has some underlying chronic dermatitis on his legs, I think the increased erythema and swelling is likely cellulitis. Possible source may be new blister on RLE. WBC is normal, but increased neutrophils. Low grade temp, possibly less than it might be given prednisone. Given diabetes, and hx MRSA, will continue daptomycin and cefazolin. Blood and wound cx pending. I don' t think he clearly meets SIRS criteria, as temp <38.3, BP ok, tachycardic but has underlying atrial fib/flutter that isn't always well controlled, RR <20. Initial lactate positive, but negative on repeat. This may all be misleading though, given the prednisone. 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 Increased troponin: no chest pain. Hx CAD. Coronary calcium 445 in 08/16, with only 3% progression, representing stable disease. Increase may be related to tachycardia. Hasn't had beta jacinto today. Will recheck, but doubt significant coronary syndrome. Atrial fibrillation/flutter: rate variable, but per son, usually better controlled, though can run to the 120s. He is on metoprolol 25mg daily, and last dose yesterday, so this may be rebound tachycardia. BP typically low, so doesn't tolerate higher dose. Abnormal CXR: he has hx of central bronchiectasis on CT scan, so unclear if these findings are new. Radiology interpretation is edema vs pneumonitis/ pneumonia. Clinically doesn't look like pneumonia. With elevated BUN, creatine and very dry mouth, he looks more dehydrated than fluid overloaded. Has received 1L NS. Will check BNP, but continue gently hydration for now. Is usually on Bumex daily, but will hold for now. CKD: as noted above, looks dry. Cr seems a little higher than baseline. diabetes mellitus: on lantus. Blood sugars have been running high due to prednisone. Will continue lantus, add sliding scale premeal insulin as needed sleep apnea: brought his CPAP machine from home. 09/11/17 17:42 Subjective: 86yo male with complex medical hx including diabetes, CAD, CKD, pulmonary hypertension, and recent diagnosis of bullous pemphigoid had not been feeling well the last couple of days, finding it harder to get out of bed and not walking as much. His son went over this morning and found him between the bed and dresser, unclear if he'd fallen or just hadn't been able to get out of bed. His other son came over and found him less responsive than usual, falling asleep between questions. He also noticed that his R leg was much more red and swollen than it had been when he saw him 6 days ago for a shower. He has been on prednisone 30mg daily for a bullous skin eruption, and the blisters had pretty much cleared up. His prednisone dose was decreased to 20mg daily in late July, and he had developed a new blister on his lower R leg at least a week ago. Picture of blister taken on 09/06/17 showed almost no erythema of the R leg at that time. The pt's son, Fam, states that pt hasn't had any fever, chills. He has chronic ABDUL, but that hasn't changed, and a chronic cough, also unchanged. Pt advised to come to ED for further evaluation. CXR with patchy bilateral ground glass attenuation infiltrates with mild fluid overload. EKG with fib/flutter, rate 114-125. He has ventricular pacer. Low grade temp to 38C. Chem panel with BUN 85, Cr 2.6. Troponin .302. WBC 7.4 with neutrophilia. Initial lactic acid 2.1, f/u 1.2. UA with small amount protein, blood. Respiratory PCR negative. Blood cx pending, and skin wound cultured as well. Given daptomycin 350mg IV and cefazolin 1g IV. Has hx of MRSA. Daptomycin given per ID recommendation. Objective: Vital Signs Temp Pulse Resp BP Pulse Ox 36.8 C 111 H 18 87/61 L 98 09/11/17 16:00 09/11/17 16:00 09/11/17 16:00 09/11/17 16:00 09/11/17 16:00 General: resting comfortably, arouses easily but drops off to sleep easily, NAD HEENT: normocephalic. 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 PERRL, EOMI. Decreased hearing. Bruise on R cheek from fall in early July. O/p dry, dentition poor Neck: no masses, adenopathy. No thyromegaly Lungs: decreased breath sounds, no rales, wheezing. Adequate air movement. Cardiovascular: tachycardic, regular, somewhat distant. No murmur noted Abdomen: positive bowel sounds, non-tender. No hepatosplenomegaly, masses noted. Reducible abdominal hernia. Extremities: BLE edema, R>L. RLE with significant erythema involving leg below knee, and extending up lateral aspect of leg. Warm to touch, tender, especially on upper lateral thigh. Bandage over wound just above lateral R ankle. Skin: multiple lesions on head as noted, multiple ecchymoses, including on abdomen related to insulin injections, fall in early July. Extremities as noted. Musculoskeletal: limited use of arms due to torn R rotator cuff, L shoulder arthritis. Moves lower extremities. Neurologic: decreased alertness but able to respond appropriately. No significant confusion. Psychiatric: no anxiety, agitation ICD10 Worksheet Patient Problems: Problems Problem Status Onset Cellulitis Acute Elevated troponin Acute Chronic Disease Management/Transitional Care Program Active Closed right acetabular fracture Acute Edema Acute Fall on same level from tripping as cause of accidental injury Acute Fracture of right olecranon process Acute Hyperkalemia Acute Osteoarthritis of right hip Acute Pelvic fracture Acute
[2017-09-11] MEDS ORDERED: NS 500 ML IV ONE (17:30)
[2017-09-11] MEDS: NS 1,000 ML IV SCH (17:30)
[2017-09-11] MEDS: METOPROLOL SUCCINATE XR 25 MG TAB PO SCH (18:12)
[2017-09-11] MEDS: PROTEASE PO SCH (18:17)
[2017-09-11] MEDS: AMYLASE PO SCH (18:17)
[2017-09-11] MEDS: LIPASE PO SCH (18:17)
[2017-09-11] MEDS: traMADol 50 MG TAB PO PRN (18:18)
[2017-09-11] MEDS: INSULIN LISPRO 100 UNIT/ML SC SCH (18:20)
[2017-09-11] MEDS: predniSONE 20 MG TAB PO SCH (18:34)
[2017-09-11] MEDS: PANTOPRAZOLE SODIUM 40 MG TAB PO SCH (18:34)
[2017-09-11] MEDS ORDERED: INSULIN GLARGINE 100 UNITS/ML UNIT SC SCH (21:00)
[2017-09-11] MEDS ORDERED: PRAVASTATIN SODIUM 20 MG TAB PO SCH (21:00)
--- NOTE | 2017-09-11 21:03 | GHP ---
[f rep st] HISTORY AND PHYSICAL DATE OF ADMISSION: 09/11/2017 HISTORY OF PRESENT ILLNESS: The patient is an 86-year-old male with a complex medical history including diabetes, coronary artery disease, chronic kidney disease, pulmonary hypertension, and a recent diagnosis of bullous pemphigoid, who has not been feeling well for the last couple of days, finding it harder to get out of bed and not walking as much. His son went over this morning and found him between the bed and dresser. Unclear if he had fallen or just had not been able to get out of bed. His other son came over and found him to be less responsive than usual, falling asleep between questions. He also noticed that his right leg was much more red and swollen than it had been when he saw him 6 days ago for a shower. He has been on prednisone 30 mg daily for a bullous skin eruption and the blisters had pretty much cleared up. His prednisone dose was decreased to 20 mg daily in late July and he had developed a new blister on his right lower extremity at least a week ago. A picture of the blister taken on 09/06/2017 showed almost no erythema of the right leg at that time. The patient's son stated that the patient has not had any fever or chills that he is aware of. He has chronic dyspnea on exertion and a chronic cough, but that has not changed over time. The patient contacted Dr. Hendricks's office and was advised to come to the emergency department for further evaluation. In the ED, his chest x-ray showed patchy bilateral ground- glass attenuation infiltrates with mild fluid overload. EKG showed atrial fibrillation-flutter with a rate of 114-125. He has a ventricular pacemaker. He had a low-grade temperature to 38 degrees centigrade. Chem panel was abnormal with a BUN of 85 and creatinine of 2.6. No other significant abnormalities. Troponin was 0.302. White blood cell count 7.4 with a neutrophilia. Initial lactic acid was 2.1 with a followup reading of 1.2. Urinalysis showed a small amount of protein and blood. Respiratory PCR was negative. Blood cultures are pending and skin wound was cultured as well. He was given daptomycin 350 mg IV and cefazolin 1 g IV. He has a history of MRSA. Daptomycin was given per ID recommendation. PAST MEDICAL HISTORY: Atrial fibrillation-flutter, hypogonadism, pulmonary hypertension, bullous pemphigoid, coronary artery disease, bronchiectasis, adult onset diabetes, chronic renal disease, fatty infiltration of the liver with cirrhotic appearance in 2008, GERD, hyperlipidemia, hypertension, peptic ulcer, pneumonia, squamous cell carcinomas, sleep apnea on CPAP. MEDICATIONS: Tylenol as needed, allopurinol 100 mg b.i.d., pancreatic enzymes 1 capsule with meals, vitamin C 250 mg b.i.d., aspirin 81 mg daily, cetirizine 10 mg daily, diclofenac gel 1% 1 g topically q.i.d., diphenhydramine 25 mg at bedtime, docusate sodium 200 mg b.i.d., doxycycline 100 mg daily, ferrous sulfate 325 mg b.i.d., insulin glargine 32 units at bedtime, lactulose 20 g t.i.d. as needed, milk of magnesia 30 mL daily, magnesium oxide 400 mg daily, metoprolol succinate 25 mg daily, montelukast 10 mg daily, multivitamin daily, niacin 500 mg at h.s., pantoprazole 40 mg daily, pravastatin 20 mg daily, prednisone 20 mg daily, sildenafil 20 mg t.i.d., tramadol 50 mg q.6 hours p.r.n. , triamcinolone 0.1% cream t.i.d. as needed for itching. ALLERGIES: None. SURGICAL HISTORY: Hip surgery in 08/16, bovine mitral valve replacement 06/09. FAMILY HISTORY: His father at age 84 of an aneurysm. Mother at 72 with diabetes. Older brother with heart disease. SOCIAL HISTORY: He is . He has 7 children. He is a nonsmoker and nondrinker. REVIEW OF SYSTEMS: GENERAL: No fever or chills. Has not eaten all day except for 1 Glucerna. HEENT: Denies any runny nose, sinus pain or sore throat. RESPIRATORY: He has chronic dyspnea on exertion and a chronic cough. This is unchanged. CARDIOVASCULAR: No chest pain or pressure. He has a history of chronic arrhythmia with a variable heart rate, sometimes as low as the 80s, other times up to the 120s. GASTROINTESTINAL: No nausea, vomiting, diarrhea, constipation. No significant abdominal pain though he does have an abdominal hernia that causes some mild discomfort. It is reducible. GENITOURINARY: No dysuria or hematuria. MUSCULOSKELETAL: He has a torn right rotator cuff and left shoulder arthritis limiting his ability to use his arms. SKIN: He bruises easily. He has multiple ecchymoses and multiple squamous cell carcinomas on his head. NEUROLOGIC: He is able to walk, but he is unsteady on his feet and has a history of falls. He has some decreased memory, but no dementia. Mood is generally okay, though he is unhappy that he is not able to get out like he used to. LABS: White blood cell count 7.42 with 91.5% neutrophils, hemoglobin 15.8, hematocrit 45.8, platelet count 70. Sodium 138, potassium 4.3, chloride 95, bicarb 32, BUN 85, creatinine 2.6, glucose 223, calcium 8.5. Troponin 0.302. Lactic acid 2.1 initially, 1.2 on the next 2 readings. Urinalysis: Specific gravity 1.015, trace protein, trace blood, with 5-10 RBCs seen microscopically, WBCs 1-3. PHYSICAL EXAMINATION: VITAL SIGNS: Temperature 36.8 currently, though it was 38 when he initially came into the emergency department. Heart rate 111, respiratory rate 18, blood pressure 87/61, pulse ox 98%. GENERAL: He is resting comfortably. He arouses easily, but drops off to sleep easily as well, no acute distress. HEENT: Normocephalic. He has multiple wounds on the top of his head related to treated and untreated squamous cell carcinomas. Pupils are equal, round, reactive to light. Extraocular movements intact. Decreased hearing. Bruise on right cheek from fall in early July. Oropharynx is dry. Dentition is poor. NECK: Without masses or adenopathy. No thyromegaly. LUNGS: Breath sounds are somewhat decreased, but no rales or wheezing noted. Adequate air movement. CARDIOVASCULAR: Tachycardic rhythm, regular, but somewhat distant heart sounds. No murmur noted. ABDOMEN: Normal bowel sounds and nontender. No hepatosplenomegaly or masses noted. Reducible abdominal hernia. EXTREMITIES: Bilateral lower extremity edema, right greater than left. Right lower extremity with significant erythema involving leg below-knee and extending up lateral aspect of leg, it is warm to touch and tender, especially on the right lateral thigh. There is a bandage over the wound just above the lateral right ankle. SKIN: Multiple lesions on head as noted. Multiple ecchymoses including on abdomen related to insulin injections and fall in early July. Extremities as noted above. MUSCULOSKELETAL: Limited use of his right arm due to shoulder pathologies. He is moving his lower extremities. NEUROLOGIC: Somewhat decreased alertness, but able to respond appropriately. No significant confusion. PSYCHIATRIC: No anxiety or agitation. ASSESSMENT AND PLAN: 1. Right lower extremity cellulitis. While he has a history of some underlying chronic dermatitis on his legs, I think the increased erythema and swelling is likely cellulitis. Possible source may be the new blister on his right lower extremity. WBC is normal, but increased neutrophils noted. Low- grade temperature probably less than it might be given prednisone. Given diabetes and history of Methicillin resistant Staphylococcus aureus, will continue daptomycin and cefazolin. Blood and wound cultures are pending. I do not think he clearly meets systemic inflammatory response syndrome criteria as temperature is less than 38.3, intial blood pressure okay. Tachycardic but has underlying atrial fibrillation-flutter that is not always well controlled. Respiratory rate less than 20. Initial lactate positive but negative on repeat. This may all be misleading, though, given the prednisone. 2. Bullous pemphigus, on prednisone for this. Recently down from 30 mg daily to 20 mg daily and will continue this. 3. Increased troponin. No chest pain. He does have a history of coronary artery disease. His most recent coronary calcium Agatston score was 445 in with only 3% progression representing stable disease. The increased troponin may be related to tachycardia, atrial fibrillation, CKD. He has not had his beta-jacinto today. We will recheck troponin but doubt significant coronary syndrome. 4. Atrial fibrillation-flutter. Rate is variable, but per son usually better controlled though he can run into the 120s. He is on metoprolol 25 mg daily with his last dose yesterday, so this may be a rebound tachycardia. Blood pressure is typically low so does not tolerate a higher dose. 5. Abnormal chest x-ray. He has a history of central bronchiectasis on CT scan so unclear if these findings are new. Radiology interpretation is edema versus pneumonitis pneumonia. Clinically, he does not look like pneumonia. With an elevated BUN, creatinine, and very dry mouth, he looks more dehydrated than fluid overloaded. He has received 1 L of normal saline. Will check BNP and continue gentle hydration for now. His office chart shows that he is usually on Bumex, so we will hold that for now. 6. Chronic kidney disease. As noted above, looks dry. Creatinine seems a little higher than baseline. 7. Diabetes mellitus on Lantus. Blood sugars have been running high due to prednisone. Will continue Lantus and add sliding scale pre-meal insulin as needed. 8. Sleep apnea. He brought his own continuous positive airway pressure machine from home. 9. Pulmonary hypertension. He is on sildenafil and we will continue this. 10. Deep vein thrombosis prophylaxis. I will put him on low-dose Lovenox. He is currently on aspirin. DISPOSITION: Expect greater than 2 midnights in hospital due to cellulitis and multiple comorbidities including chronic kidney disease, diabetes, abnormal troponin, chronic prednisone use, atrial fibrillation-flutter. /[id number]/MODL MTDD
[2017-09-11] MEDS: NIACIN 500 MG TAB PO SCH (22:09)
[2017-09-11] MEDS: ACETAMINOPHEN 325 MG TAB PO PRN (22:09)
[2017-09-11] MEDS: MONTELUKAST SODIUM 10 MG TAB PO SCH (22:09)
[2017-09-11] MEDS: ALLOPURINOL 100 MG TAB PO SCH (22:10)
[2017-09-11] MEDS: ASCORBIC ACID 250 MG TAB PO SCH (22:10)
[2017-09-11] MEDS: DOCUSATE SODIUM 100 MG CAP PO SCH (22:10)
[2017-09-11] MEDS: SILDENAFIL CITRATE 20 MG TAB PO SCH (22:10)
[2017-09-11] MEDS: FERROUS SULFATE 325 MG TAB PO SCH (22:10)
[2017-09-11] MEDS: SENNOSIDES/DOCUSATE SODIUM TAB PO SCH (22:10)
[2017-09-11] MEDS: diphenhydrAMINE 25 MG CAP PO SCH (22:10)
[2017-09-11] MEDS: DICLOFENAC SODIUM 1% 100 GM GEL TP SCH (23:24)
[2017-09-12] MEDS: traMADol 50 MG TAB PO PRN ×3 (00:02→16:13)
[2017-09-12] MEDS: ACETAMINOPHEN 325 MG TAB PO PRN (02:34)
[2017-09-12 03:57] LABS: PLATELET COUNT 65 10^3/uL (150-400)
[2017-09-12] MEDS: NS 1,000 ML IV SCH ×2 (04:06→15:32)
[2017-09-12] MEDS: DICLOFENAC SODIUM 1% 100 GM GEL TP SCH ×6 (06:12→20:52)
[2017-09-12] MEDS ORDERED: DOXYCYCLINE HYCLATE 100 MG CAP/TAB PO SCH (09:00)
--- NOTE | 2017-09-12 09:38 | SOAPPROG ---
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 Has been on doxy as outpt for bullous pemphigus will hold. RLE is stable - no increased erythema outside of marked areas on leg yesterday, he reports less pain and feeling better today compared to yesterday. Less groggy, mentating better. Will discuss abx w/ ID Dr Ottoniel Mike and adjust accordingly. -CKD - on maintenance IVF now, rec'd bolus and 125 overnight, watch i/o w/ h/o chf and elev BNP yet clinically dry and elev BUN. Renally dose meds. -a fib/flutter w/ rvr - bp low end so treating carefully w/ fluid balance and low dose beta jacinto -DM - cont usual meds and fsbs -dvt proph- lovenox Plan: 09/12/17 09:32 09/12/17 09:42 Subjective: Feeling much better today "less sleepy and thinking better" Objective: Vital Signs Temp Pulse Resp BP Pulse Ox 36.5 C 105 H 12 101/66 97 09/12/17 07:37 09/12/17 07:37 09/12/17 07:37 09/12/17 07:37 09/12/17 07:37 Laboratory Results 09/12/17 03:26 09/12/17 03:26 09/11/17 09/12/17 09/13/17 05:59 05:59 05:59 Intake Total 3050 Output Total 550 Balance 2500 Gen: alert, oriented, pleasant and appropriate Heent: Sk's on forehead, scalp Neck soft supple Chest: cta b CV: irreg irreg tachy Abd: soft nt Ext: erythema RLE from mid-thigh on sides to ankle - outlined w/ marker and not extending out from yesterday, dressings in place on wounds 2/2 bullous pemphigus - Pending Discharge Pending Discharge Within 24 Hours: No ICD10 Worksheet Patient Problems: Problems Problem Status Onset Cellulitis Acute Elevated troponin Acute Chronic Disease Management/Transitional Care Program Active Closed right acetabular fracture Acute Edema Acute Fall on same level from tripping as cause of accidental injury Acute Fracture of right olecranon process Acute Hyperkalemia Acute Osteoarthritis of right hip Acute Pelvic fracture Acute
[2017-09-12] MEDS: INSULIN LISPRO 100 UNIT/ML SC SCH ×3 (09:47→18:42)
[2017-09-12] MEDS: ENOXAPARIN 30 MG/0.3 ML SYR SC SCH (09:49)
[2017-09-12] MEDS: LIPASE PO SCH ×3 (09:51→18:42)
[2017-09-12] MEDS: SILDENAFIL CITRATE 20 MG TAB PO SCH ×3 (09:51→20:51)
[2017-09-12] MEDS: AMYLASE PO SCH ×3 (09:51→18:42)
[2017-09-12] MEDS: PROTEASE PO SCH ×3 (09:51→18:42)
[2017-09-12] MEDS: PANTOPRAZOLE SODIUM 40 MG TAB PO SCH (09:53)
[2017-09-12] MEDS: ASPIRIN 81 MG CHEWABLE TAB PO SCH (09:54)
[2017-09-12] MEDS: ALLOPURINOL 100 MG TAB PO SCH ×2 (09:54→20:51)
[2017-09-12] MEDS: CETIRIZINE 10 MG TAB PO SCH (09:55)
[2017-09-12] MEDS: METOPROLOL SUCCINATE XR 25 MG TAB PO SCH (09:55)
[2017-09-12] MEDS: predniSONE 20 MG TAB PO SCH (09:56)
[2017-09-12] MEDS: MAGNESIUM OXIDE 400 MG TAB PO SCH (09:56)
[2017-09-12] MEDS: MULTIVITAMINS 1 EACH TAB PO SCH (09:56)
[2017-09-12] MEDS: SENNOSIDES/DOCUSATE SODIUM TAB PO SCH ×2 (09:58→20:52)
[2017-09-12] MEDS: ASCORBIC ACID 250 MG TAB PO SCH ×2 (09:58→20:51)
[2017-09-12] MEDS: DOCUSATE SODIUM 100 MG CAP PO SCH ×2 (09:58→20:51)
[2017-09-12] MEDS: FERROUS SULFATE 325 MG TAB PO SCH ×2 (10:00→20:51)
[2017-09-12 12:25] LABS: CREATINE KINASE 681 IU/L (0-224)
--- NOTE | 2017-09-12 12:29 | PDMN ---
Medical Necessity Medical necessity: Pt meets IP criteria per MD; est los >2 mn for eval/tx of RLE cellulitis w/MRSA bacteremia & generalized weakness w/unsteady gait; admit for further monitoring, IV abx, ID consult & therapies; comorbid advanced age & complex medical hx including, CKD, diabetes, CHF, AFIB/flutter w/RVR, CAD, pulmonary htn, bullous pemphigoid on chronic Prednisone; per H&P & order 09/11/17
--- NOTE | 2017-09-12 13:07 | PCMIDPN ---
Assessment/Plan: Assessment/Plan: * Sepsis due to MRSA bacteremia: Etiology for bacteremia likely right lower extremity cellulitis with underlying bullous pemphigus and new blister onset. Has indwelling pacemaker and prosthetic mitral valve as well. Will obtain echocardiogram. Repeat blood cultures x2 to assess for clearing of bacteremia. Discontinue cefazolin as isolate known to be MRSA. Continue daptomycin with Q 48 hr dosing given underlying renal insufficiency with risk of additional nephrotoxicity of vancomycin utilized. Have dosed daptomycin at approximately 8 milligrams/kilogram. Check baseline CPK with daptomycin use. Hold pravastatin while on daptomycin given increased risk of myositis if use concomitantly. * Bullous pemphigus: Please note that daily doxycycline is being used for pemphigus not for antibacterial effect. * Thrombocytopenia: Likely associated with sepsis. Time spent, greater than 35 min, of which greater than half was spent in education/counseling/coordination of care related to MRSA bacteremia. 09/12/17 13:03 09/12/17 13:07 Subjective: [facility] chronic recurrent blisters of the extremities. Ultimately felt these are due to bullous pemphigus. Patient has been receiving prednisone, doxycycline, and niacinamide for this disease process under care of Dermatology. Last seen on 07/28/2017 at which point in time his extremities were without blisters. Patient notes development of recurrent blisters after tapering prednisone dose and over last 2 days complains of swelling, pain and redness over right lower extremity. Did not note fever or chills. However, had temperature to 38 degrees in emergency department. Blood cultures were obtained at time of presentation and both sets are showing growth of MRSA. Patient has been receiving both daptomycin and cefazolin pending susceptibility profile. He primarily notes pain over the right lateral thigh currently. Of note, patient has prosthetic mitral valve and pacemaker in place. Given the above findings, Infectious disease is now asked to assist in his ongoing management. Objective: Vital Signs Temp Pulse Resp BP Pulse Ox 36.5 C 105 H 12 101/66 97 09/12/17 07:37 09/12/17 07:37 09/12/17 07:37 09/12/17 07:37 09/12/17 07:37 Laboratory Results 09/12/17 03:26 09/12/17 03:26 09/11/17 09/12/17 09/13/17 05:59 05:59 05:59 Intake Total 3050 Output Total 550 Balance 2500 Blood cultures 2/2 MRSA Right lower extremity wound 4+ GPC, culture pending - Physical Exam General Appearance: alert, no apparent distress, non-toxic EENT: No scleral icterus, No thrush, No conjunctival petechiae Respiratory: lungs clear, No respiratory distress Cardiac/Chest: tachycardia, other (Pacemaker in left upper chest nontender without erythema), No systolic murmur Extremities: inflammation (Right lower extremity with edema from foot to thigh; erythema present circumferential ER below knee and over lateral and posterior aspect of thigh; lateral aspect of thigh with tenderness greater than remainder of exam) Abdomen: non-tender, other (Large umbilical hernia), No distended Skin: other (Blisters over both lower extremities with scant purulent quality on right), No embolic lesions ICD10 Worksheet Patient Problems: Problems Problem Status Onset Cellulitis Acute Elevated troponin Acute Chronic Disease Management/Transitional Care Program Active Closed right acetabular fracture Acute Edema Acute Fall on same level from tripping as cause of accidental injury Acute Fracture of right olecranon process Acute Hyperkalemia Acute Osteoarthritis of right hip Acute Pelvic fracture Acute
--- NOTE | 2017-09-12 13:55 | ECHO ---
[email or web address] [address] Main: [phone] Fax: Transthoracic Echocardiogram Name: DAFNE ROGEL MR#: [id number] Study Date: 09/12/2017 Study Time: 12:35 PM Date of : 1930 Age: 86 year(s) Height: ( ) Weight: ( ) BSA: Gender: Male Examination: Echo Indication: MRSA bacteremia with bioprosthetic mitral valve and pacemaker Image Quality: Technically Difficult Contrast: Requested by: Ottoniel Mike BP: 101 mmHg/66 mmHg Heart Rate: Rhythm: Indication: MRSA bacteremia with bioprosthetic mitral valve and pacemaker Procedure Staff Elephant Keeper: Millie Knott [facility] Reading Physician: Fam De La Torre MD Requesting Provider: Conclusions: Normal size left ventricle. Mild to moderate LVH. Normal global systolic LV function. EF is 70 %. No regional wall motion abnormality. Mildly dilated right ventricle. Normal RV function. There is a pacemaker lead noted in the right ventricle. The left atrium is mildly dilated. A bioprothetic mitral valve is in place. The prosthetic mitral valve is normal. Prosthetic mitral valve gradients are within normal limits. Mild aortic cusp calcification is noted. Mild tricuspid regurgitation is present. The pulmonary artery pressure is normal. Mildly dilated aortic root measuring 4.1 cm. No definitive evidence of endocarditis. There are Lambl's excrescences (fibrin strands) attached to the aortic valve. Small vegetations cannot be excluded. Consider COLLIN if clinically indicated. Measurements: Chambers Valvular Assessment AV/MV Valvular Assessment TV/PV Normal Normal Normal Name Value Range Name Value Range Name Value Range Ao Luna (MM): 4.1 cm (2.2 cm-3.7 AV Vmax: 1.17 m/s (1 m/s-1.7 TV Vmax: 0.57 m/s (0.3 m/s-0.7 cm) m/s) m/s) IVSd (2D): 1.5 cm (0.6 cm-1.1 AV maxP mmHg ( - ) TV Vmean: 0.42 m/s ( - ) cm) LVOT Vmax: 0.81 m/s (0.7 m/s-1.1 TV PGmax: 1 mmHg ( - ) LVDd (2D): 4.2 cm (4.2 cm-5.9 m/s) TV PGmean: 1 mmHg ( - ) cm) DOMENICA (Vmax): 2.2 cm2 ( - ) TV VTI: 11.10 cm ( - ) Patient: DAFNE ROGEL Study Date: 09/12/2017 Page 1 of 2 12:35 PM LVDs (2D): 3.0 cm (2.1 cm-4 MV meanP mmHg ( - ) TR Vmax: 2.23 mm/s ( - ) cm) TR PGmax: 20 mmHg ( - ) LVPWd (2D): 1.2 cm (0.6 cm-1 syst. PAP: 25 mmHg ( - ) cm) PV Vmax: 0.79 m/s (0.6 m/s-0.9 LVOTd 2.0 cm 2.0 cm mm m/s) LVEF (BP): 70 % (>=55 %) PV PGmax: 2 mmHg ( - ) RVDd(2D): 4.2 cm (1.9 cm-3.8 cmmm) Continued Measurements: Chambers Valvular Assessment AV/MV Valvular Assessment TV/PV Name Value Name Value Name Value LADs: 4.5 cm MV VTI: 26.30 cm CVP (est.): 5 mmHg LADs Lon.5 cm LA Area: 21.2 cm2 LA Volume: 53 ml Additional Vessels Name Value Ao Ascendin.6 cm Findings: Left Ventricle: Normal size left ventricle. Mild to moderate LVH. Normal global systolic LV function. EF is 70 %. No regional wall motion abnormality. Unable to assess diastolic dysfunction. Right Ventricle: Mildly dilated right ventricle. Normal RV function. There is a pacemaker lead noted in the right ventricle. Left Atrium: The left atrium is mildly dilated. Right Atrium: The right atrium is mildly dilated. There is a pacemaker lead noted in the right atrium. Mitral Valve: A bioprothetic mitral valve is in place. The prosthetic mitral valve is normal. Prosthetic mitral valve gradients are within normal limits. No MV prosthesis regurgitation. No vegetation on mitral valve prosthesis. Aortic Valve: The aortic valve is tri-leaflet and functions normally. Mild aortic cusp calcification is noted. Trivial aortic valve regurgitation. No aortic valve stenosis is present. There is no aortic valve vegetation. Tricuspid Valve: Tricuspid valve not well visualized. Mild tricuspid regurgitation is present. The pulmonary artery pressure is normal. No tricuspid valve vegetation. Pulmonic Valve: The pulmonic valve is normal in appearance and function. There is no pulmonic regurgitation seen. There is no pulmonary valve vegetation. Aorta: Mildly dilated aortic root measuring 4.1 cm. Normal size ascending aorta measuring 3.6 cm. IVC: The IVC is normal sized. Pericardium: No pericardial effusion. (No Signature Object) Patient: DAFNE ROGEL Study Date: 09/12/2017 Page 2 of 2 12:35 PM [id number]
--- NOTE | 2017-09-12 14:18 | ASMTCMCOM ---
CM Note CM Note Notes: Chart reviewed. Patient normally lives independent with . He is here with infection and s/p fall. Per PT they are recommending HHC. Dscharge date is unclear at this time. Will place referral in allscripts to [facility]. CM to follow. Date Signed: 09/12/2017 02:17 PM Electronically Signed By:Polly Morrison RN
[2017-09-12] MEDS: diphenhydrAMINE 25 MG CAP PO SCH (20:51)
[2017-09-12] MEDS: NIACIN 500 MG TAB PO SCH (20:51)
[2017-09-12] MEDS: MONTELUKAST SODIUM 10 MG TAB PO SCH (20:51)
[2017-09-12] MEDS: INSULIN GLARGINE 100 UNITS/ML UNIT SC SCH (20:52)
[2017-09-13] MEDS: DICLOFENAC SODIUM 1% 100 GM GEL TP SCH ×4 (05:12→21:00)
[2017-09-13] MEDS: NS 1,000 ML IV SCH ×2 (06:13→18:58)
[2017-09-13] MEDS ORDERED: DAPTOmycin 550 MG in NS 100 ML IV SCH (09:00)
[2017-09-13] MEDS ORDERED: DAPTOMYCIN IV SCH ×2 (10:00→14:00)
[2017-09-13] MEDS ORDERED: SODIUM CL 0.9% IV SCH (10:00)
--- NOTE | 2017-09-13 10:17 | SOAPPROG ---
SOAP Progress Note Assessment/Plan: Assessment: Plan: 09/11/17 17:02 RLE Cellulitis: While he has some underlying chronic dermatitis on his legs, I think the increased erythema and swelling is likely cellulitis. Possible source may be new blister on RLE. WBC is normal, but increased neutrophils. Low grade temp, possibly less than it might be given prednisone. Given diabetes, and hx MRSA, will continue daptomycin and cefazolin. Blood and wound cx pending. I don' t think he clearly meets SIRS criteria, as temp <38.3, BP ok, tachycardic but has underlying atrial fib/flutter that isn't always well controlled, RR <20. Initial lactate positive, but negative on repeat. This may all be misleading though, given the prednisone. 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 Increased troponin: no chest pain. Hx CAD. Coronary calcium 445 in 08/16, with only 3% progression, representing stable disease. Increase may be related to tachycardia. Hasn't had beta jacinto today. Will recheck, but doubt significant coronary syndrome. Atrial fibrillation/flutter: rate variable, but per son, usually better controlled, though can run to the 120s. He is on metoprolol 25mg daily, and last dose yesterday, so this may be rebound tachycardia. BP typically low, so doesn't tolerate higher dose. Abnormal CXR: he has hx of central bronchiectasis on CT scan, so unclear if these findings are new. Radiology interpretation is edema vs pneumonitis/ pneumonia. Clinically doesn't look like pneumonia. With elevated BUN, creatine and very dry mouth, he looks more dehydrated than fluid overloaded. Has received 1L NS. Will check BNP, but continue gently hydration for now. Is usually on Bumex daily, but will hold for now. CKD: as noted above, looks dry. Cr seems a little higher than baseline. diabetes mellitus: on lantus. Blood sugars have been running high due to prednisone. Will continue lantus, add sliding scale premeal insulin as needed sleep apnea: brought his CPAP machine from home. 09/11/17 17:42 09/13/17 10:18 RLE cellulitis: improving slowly, and he is feeling better. Echo without obvious vegetations. Afebrile. Appreciate ID input. Now on daptomycin q48hrs. Will recheck CBC today given elevation in WBC yesterday and decreased plts MRSA bacteremia: as above, doing better, on daptomycin. Atrial fib/flutter: remains on low dose metoprolol, rate better than when he initially came in. CKD: Cr a little better yesterday, so will recheck today. Delicate fluid balance with renal failure, CHF CHF: elevated BNP yesterday, likely related to initial tachycardia above usual. Clinically doing well. Diabetes: blood sugars fluctuating. Increased Lantus to 34 units in the evening. Will continue to monitor. Bullous pemphigus: remains on prednisone Subjective: Feeling much better overall except for pain in lateral R thigh. Thinks erythema is a little better. No SOB. Objective: Vital Signs Temp Pulse Resp BP Pulse Ox 36.4 C 100 12 98/74 L 90 L 09/13/17 08:00 09/13/17 08:00 09/13/17 08:00 09/13/17 08:00 09/13/17 08:00 Laboratory Results 09/12/17 03:26 09/12/17 03:26 09/12/17 09/13/17 09/14/17 05:59 05:59 05:59 Intake Total 3050 3119 Output Total 550 825 Balance 2500 2294 General: sitting in chair eating breakfast, awake, alert, NAD Lungs: clear CV: irregularly irregular Abdomen: +bowel sounds, soft Extremities: BLE edema, R>L. RLE erythema a little better, slightly decreased. R thigh indurated, tender, less erythematous ICD10 Worksheet Patient Problems: Problems Problem Status Onset Cellulitis Acute Elevated troponin Acute Chronic Disease Management/Transitional Care Program Active Closed right acetabular fracture Acute Edema Acute Fall on same level from tripping as cause of accidental injury Acute Fracture of right olecranon process Acute Hyperkalemia Acute Osteoarthritis of right hip Acute Pelvic fracture Acute
[2017-09-13] MEDS: DAPTOMYCIN IV SCH (10:32)
[2017-09-13] MEDS: ENOXAPARIN 30 MG/0.3 ML SYR SC SCH (10:32)
[2017-09-13] MEDS: SODIUM CL 0.9% IV SCH (10:32)
[2017-09-13] MEDS: PROTEASE PO SCH ×3 (10:33→18:48)
[2017-09-13] MEDS: CETIRIZINE 10 MG TAB PO SCH (10:33)
[2017-09-13] MEDS: SENNOSIDES/DOCUSATE SODIUM TAB PO SCH ×2 (10:33→20:59)
[2017-09-13] MEDS: INSULIN LISPRO 100 UNIT/ML SC SCH ×3 (10:33→20:59)
[2017-09-13] MEDS: MAGNESIUM OXIDE 400 MG TAB PO SCH (10:33)
[2017-09-13] MEDS: LIPASE PO SCH ×3 (10:33→18:48)
[2017-09-13] MEDS: AMYLASE PO SCH ×3 (10:33→18:48)
[2017-09-13] MEDS: predniSONE 20 MG TAB PO SCH (10:34)
[2017-09-13] MEDS: METOPROLOL SUCCINATE XR 25 MG TAB PO SCH (10:34)
[2017-09-13] MEDS: DOCUSATE SODIUM 100 MG CAP PO SCH ×2 (10:34→20:59)
[2017-09-13] MEDS: FERROUS SULFATE 325 MG TAB PO SCH ×2 (10:35→21:00)
[2017-09-13] MEDS: SILDENAFIL CITRATE 20 MG TAB PO SCH ×3 (10:35→21:00)
[2017-09-13] MEDS: ASPIRIN 81 MG CHEWABLE TAB PO SCH (10:35)
[2017-09-13] MEDS: MULTIVITAMINS 1 EACH TAB PO SCH (10:35)
[2017-09-13] MEDS: ALLOPURINOL 100 MG TAB PO SCH ×2 (10:48→21:00)
[2017-09-13] MEDS: ASCORBIC ACID 250 MG TAB PO SCH ×2 (10:48→20:59)
[2017-09-13] MEDS: PANTOPRAZOLE SODIUM 40 MG TAB PO SCH (10:49)
[2017-09-13 13:27] LABS: PLATELET COUNT 74 10^3/uL (150-400)
--- NOTE | 2017-09-13 13:47 | PCMIDPN ---
Assessment/Plan: Assessment/Plan: * Sepsis due to MRSA bacteremia: Overall clinically improved although still with significant right lower extremity cellulitis which is most prominent along lateral thigh. Repeat blood cultures in a.m. to assess for clearing of bacteremia. Follow CPK which was elevated at baseline while on daptomycin. Pravastatin held to avoid increased risk of myositis while daptomycin being utilized. Do not think COLLIN likely to guide changer as patient will require 6 weeks of IV antibiotics given presence of pacemaker and prosthetic valve. Would proceed with COLLIN only if unable to clear bacteremia. * Bullous pemphigus: Please note that daily doxycycline is being used for pemphigus not for antibacterial effect. * Thrombocytopenia: Slight improvement today and likely related to sepsis. 09/13/17 13:43 Subjective: Patient complains of right leg pain which is slightly less than yesterday. Objective: Vital Signs Temp Pulse Resp BP Pulse Ox 36.5 C 108 H 12 93/59 L 93 09/13/17 12:00 09/13/17 12:00 09/13/17 12:00 09/13/17 12:00 09/13/17 12:00 Laboratory Results 09/13/17 13:10 09/12/17 09/13/17 09/14/17 05:59 05:59 05:59 Intake Total 3050 3119 Output Total 550 825 Balance 2500 2294 Daptomycin # 3 Blood cultures 2/2 MRSA Wound culture MRSA CPK 681 TTE with normal-appearing prosthetic mitral valve; Lambl's excrescence present on aortic valve with inability to fully rule out vegetation although only trivial AI present - Physical Exam General Appearance: alert, no apparent distress, non-toxic EENT: No conjunctival petechiae Respiratory: lungs clear, No respiratory distress Cardiac/Chest: regular rate, rhythm, No systolic murmur Extremities: inflammation (Right lateral thigh without extension of erythema; erythema slightly less intense in quality; still remains tender with edema in more dependent areas; erythema over calf stable with decreased warmth and tenderness) Abdomen: non-tender, No distended Male Genitalia: other (Erythema from right lower extremity does not affect genital region) Skin: No embolic lesions ICD10 Worksheet Patient Problems: Problems Problem Status Onset Cellulitis Acute Elevated troponin Acute Chronic Disease Management/Transitional Care Program Active Closed right acetabular fracture Acute Edema Acute Fall on same level from tripping as cause of accidental injury Acute Fracture of right olecranon process Acute Hyperkalemia Acute Osteoarthritis of right hip Acute Pelvic fracture Acute
[2017-09-13] MEDS ORDERED: DAPTOmycin 350 MG in NS 100 ML IV SCH (14:00)
[2017-09-13] MEDS ORDERED: NS IV SCH (14:00)
[2017-09-13] MEDS: INSULIN GLARGINE 100 UNITS/ML UNIT SC SCH (20:59)
[2017-09-13] MEDS: diphenhydrAMINE 25 MG CAP PO SCH (21:00)
[2017-09-13] MEDS: NIACIN 500 MG TAB PO SCH (21:00)
[2017-09-13] MEDS: MONTELUKAST SODIUM 10 MG TAB PO SCH (21:00)
[2017-09-14 05:07] LABS: PLATELET COUNT 63 10^3/uL (150-400)
[2017-09-14 05:41] LABS: CREATINE KINASE 193 IU/L (0-224)
[2017-09-14] MEDS: DICLOFENAC SODIUM 1% 100 GM GEL TP SCH ×4 (06:39→22:10)
[2017-09-14] MEDS: ENOXAPARIN 30 MG/0.3 ML SYR SC SCH (08:25)
[2017-09-14] MEDS: SENNOSIDES/DOCUSATE SODIUM TAB PO SCH ×2 (08:25→20:21)
[2017-09-14] MEDS: FERROUS SULFATE 325 MG TAB PO SCH ×2 (08:26→20:10)
[2017-09-14] MEDS: ASCORBIC ACID 250 MG TAB PO SCH ×2 (08:26→20:08)
[2017-09-14] MEDS: PANTOPRAZOLE SODIUM 40 MG TAB PO SCH (08:27)
[2017-09-14] MEDS: DOCUSATE SODIUM 100 MG CAP PO SCH ×2 (08:27→20:21)
[2017-09-14] MEDS: SILDENAFIL CITRATE 20 MG TAB PO SCH ×3 (08:27→22:12)
[2017-09-14] MEDS: AMYLASE PO SCH ×3 (08:27→17:20)
[2017-09-14] MEDS: PROTEASE PO SCH ×3 (08:27→17:20)
[2017-09-14] MEDS: LIPASE PO SCH ×3 (08:27→17:20)
[2017-09-14] MEDS: MAGNESIUM OXIDE 400 MG TAB PO SCH (08:28)
[2017-09-14] MEDS: ASPIRIN 81 MG CHEWABLE TAB PO SCH (08:28)
[2017-09-14] MEDS: METOPROLOL SUCCINATE XR 25 MG TAB PO SCH (08:28)
[2017-09-14] MEDS: ALLOPURINOL 100 MG TAB PO SCH (08:28)
[2017-09-14] MEDS: predniSONE 20 MG TAB PO SCH (08:28)
[2017-09-14] MEDS: CETIRIZINE 10 MG TAB PO SCH (08:29)
[2017-09-14] MEDS: MULTIVITAMINS 1 EACH TAB PO SCH (08:29)
[2017-09-14] MEDS: INSULIN LISPRO 100 UNIT/ML SC SCH ×3 (08:53→17:19)
--- NOTE | 2017-09-14 13:14 | SOAPPROG ---
SOAP Progress Note Assessment/Plan: Assessment: Plan: 09/11/17 17:02 RLE Cellulitis: While he has some underlying chronic dermatitis on his legs, I think the increased erythema and swelling is likely cellulitis. Possible source may be new blister on RLE. WBC is normal, but increased neutrophils. Low grade temp, possibly less than it might be given prednisone. Given diabetes, and hx MRSA, will continue daptomycin and cefazolin. Blood and wound cx pending. I don' t think he clearly meets SIRS criteria, as temp <38.3, BP ok, tachycardic but has underlying atrial fib/flutter that isn't always well controlled, RR <20. Initial lactate positive, but negative on repeat. This may all be misleading though, given the prednisone. 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 Increased troponin: no chest pain. Hx CAD. Coronary calcium 445 in 08/16, with only 3% progression, representing stable disease. Increase may be related to tachycardia. Hasn't had beta jacinto today. Will recheck, but doubt significant coronary syndrome. Atrial fibrillation/flutter: rate variable, but per son, usually better controlled, though can run to the 120s. He is on metoprolol 25mg daily, and last dose yesterday, so this may be rebound tachycardia. BP typically low, so doesn't tolerate higher dose. Abnormal CXR: he has hx of central bronchiectasis on CT scan, so unclear if these findings are new. Radiology interpretation is edema vs pneumonitis/ pneumonia. Clinically doesn't look like pneumonia. With elevated BUN, creatine and very dry mouth, he looks more dehydrated than fluid overloaded. Has received 1L NS. Will check BNP, but continue gently hydration for now. Is usually on Bumex daily, but will hold for now. CKD: as noted above, looks dry. Cr seems a little higher than baseline. diabetes mellitus: on lantus. Blood sugars have been running high due to prednisone. Will continue lantus, add sliding scale premeal insulin as needed sleep apnea: brought his CPAP machine from home. 09/11/17 17:42 09/13/17 10:18 RLE cellulitis: improving slowly, and he is feeling better. Echo without obvious vegetations. Afebrile. Appreciate ID input. Now on daptomycin q48hrs. Will recheck CBC today given elevation in WBC yesterday and decreased plts MRSA bacteremia: as above, doing better, on daptomycin. Atrial fib/flutter: remains on low dose metoprolol, rate better than when he initially came in. CKD: Cr a little better yesterday, so will recheck today. Delicate fluid balance with renal failure, CHF CHF: elevated BNP yesterday, likely related to initial tachycardia above usual. Clinically doing well. Diabetes: blood sugars fluctuating. Increased Lantus to 34 units in the evening. Will continue to monitor. Bullous pemphigus: remains on prednisone 09/14/17 13:14 RLE cellulitis: Remains on daptomycin with slow improvement. Blood cx drawn today by ID. CK normal today regarding indurated area on R thigh. Atrial fibrillation: stable, rate fairly well-controlled CKD: Cr down to 2.1. Per discussion with pharmacy, will decrease allopurinol to 100mg daily. Diabetes: blood sugars continue to fluctuate. Per family, has been eating some sugary foods from outside the hospital. Bullous pemphigus: doxycycline discontinued on 09/12/17. To be restarted by ID. Remains on prednisone. Low platelet count: will d/c lovenox. Continue NASRIN hose, and will have PT/OT see to increase ambulation Subjective: No new complaints. Still having pain along R lateral thigh. Hasn't been walking much. Objective: Vital Signs Temp Pulse Resp BP Pulse Ox 36.4 C 109 H 16 95/57 L 93 09/14/17 11:53 09/14/17 11:53 09/14/17 11:53 09/14/17 11:53 09/14/17 11:53 Laboratory Results 09/14/17 04:45 09/14/17 04:45 09/13/17 09/14/17 09/15/17 05:59 05:59 05:59 Intake Total 3119 1230 480 Output Total 825 1400 200 Balance 2294 -170 280 General: comfortable, alert, NAD Lungs: clear CV: irregularly irregular, no murmur Abdomen: +bowel sounds, soft Extremities: RLE with slowly decreasing erythema, but remains edematous. Tender along R lateral thigh and R patricia. ICD10 Worksheet Patient Problems: Problems Problem Status Onset Cellulitis Acute Elevated troponin Acute Chronic Disease Management/Transitional Care Program Active Closed right acetabular fracture Acute Edema Acute Fall on same level from tripping as cause of accidental injury Acute Fracture of right olecranon process Acute Hyperkalemia Acute Osteoarthritis of right hip Acute Pelvic fracture Acute
--- NOTE | 2017-09-14 13:17 | PCMIDPN ---
Assessment/Plan: Assessment/Plan: * Sepsis due to MRSA bacteremia: Gradual clinical improvement with significant residual cellulitis of right lower extremity and thigh. Continue daptomycin Q 48 hr adjusted for renal insufficiency. Blood cultures repeated today to assess for clearing of bacteremia. CPK decreased (681 at baseline) which will be monitored on daptomycin; pravastatin has been held to avoid increased risk of myositis. * Bullous pemphigus: Doxycycline had been discontinued. Will resume. Please note that daily doxycycline is being used for pemphigus not for antibacterial effect. * Thrombocytopenia: Likely associated with sepsis. Clinical findings discussed with patient, family, and nursing staff. Time spent , greater than 25 min, of which greater than half was spent in education/ coordination of care related to MRSA bacteremia. 09/14/17 13:13 09/14/17 13:16 09/14/17 13:17 Subjective: Patient with persistent right lateral thigh pain. Objective: Vital Signs Temp Pulse Resp BP Pulse Ox 36.4 C 109 H 16 95/57 L 93 09/14/17 11:53 09/14/17 11:53 09/14/17 11:53 09/14/17 11:53 09/14/17 11:53 Laboratory Results 09/14/17 04:45 09/14/17 04:45 09/13/17 09/14/17 09/15/17 05:59 05:59 05:59 Intake Total 3119 1230 480 Output Total 825 1400 200 Balance 2294 -170 280 Daptomycin # 4 Oral doxycycline daily (treatment for his pemphigus) Blood and wound cultures MRSA Blood cultures 09/14/2017 pending Laboratory Tests 09/14/17 04:45 Creatine Kinase 193 - Physical Exam General Appearance: alert, no apparent distress EENT: No thrush, No conjunctival petechiae Respiratory: lungs clear, No respiratory distress Cardiac/Chest: regular rate, rhythm, other (Pacemaker site nontender without erythema), No systolic murmur Extremities: inflammation (Cellulitis over right lower extremity and thigh stable; no palpable areas of fluctuance) Abdomen: non-tender, other (Large umbilical hernia), No distended Skin: other (Large ecchymosis over back encompassing entirety of right buttock extending into thigh) ICD10 Worksheet Patient Problems: Problems Problem Status Onset Cellulitis Acute Elevated troponin Acute Chronic Disease Management/Transitional Care Program Active Closed right acetabular fracture Acute Edema Acute Fall on same level from tripping as cause of accidental injury Acute Fracture of right olecranon process Acute Hyperkalemia Acute Osteoarthritis of right hip Acute Pelvic fracture Acute
[2017-09-14] MEDS: DOXYCYCLINE HYCLATE 100 MG CAP/TAB PO SCH (13:36)
[2017-09-14] MEDS: MONTELUKAST SODIUM 10 MG TAB PO SCH (20:08)
[2017-09-14] MEDS: NIACIN 500 MG TAB PO SCH (20:09)
[2017-09-14] MEDS: diphenhydrAMINE 25 MG CAP PO SCH (20:10)
[2017-09-14] MEDS: INSULIN GLARGINE 100 UNITS/ML UNIT SC SCH (22:12)
[2017-09-15 03:59] LABS: PLATELET COUNT 71 10^3/uL (150-400)
[2017-09-15] MEDS: DICLOFENAC SODIUM 1% 100 GM GEL TP SCH ×4 (07:23→23:09)
[2017-09-15] MEDS: DOCUSATE SODIUM 100 MG CAP PO SCH ×2 (08:29→21:21)
[2017-09-15] MEDS: ASCORBIC ACID 250 MG TAB PO SCH ×2 (08:29→21:19)
[2017-09-15] MEDS: FERROUS SULFATE 325 MG TAB PO SCH ×2 (08:29→21:20)
[2017-09-15] MEDS: AMYLASE PO SCH ×3 (08:29→16:15)
[2017-09-15] MEDS: PANTOPRAZOLE SODIUM 40 MG TAB PO SCH (08:29)
[2017-09-15] MEDS: ASPIRIN 81 MG CHEWABLE TAB PO SCH (08:29)
[2017-09-15] MEDS: SENNOSIDES/DOCUSATE SODIUM TAB PO SCH ×2 (08:29→21:20)
[2017-09-15] MEDS: MULTIVITAMINS 1 EACH TAB PO SCH (08:29)
[2017-09-15] MEDS: predniSONE 20 MG TAB PO SCH (08:29)
[2017-09-15] MEDS: CETIRIZINE 10 MG TAB PO SCH (08:29)
[2017-09-15] MEDS: ALLOPURINOL 100 MG TAB PO SCH (08:29)
[2017-09-15] MEDS: PROTEASE PO SCH ×3 (08:29→16:15)
[2017-09-15] MEDS: METOPROLOL SUCCINATE XR 25 MG TAB PO SCH (08:29)
[2017-09-15] MEDS: LIPASE PO SCH ×3 (08:29→16:15)
[2017-09-15] MEDS: SILDENAFIL CITRATE 20 MG TAB PO SCH ×3 (08:30→21:19)
[2017-09-15] MEDS: MAGNESIUM OXIDE 400 MG TAB PO SCH (08:30)
[2017-09-15] MEDS: DOXYCYCLINE HYCLATE 100 MG CAP/TAB PO SCH (08:30)
[2017-09-15] MEDS: INSULIN LISPRO 100 UNIT/ML SC SCH ×3 (08:30→16:15)
--- NOTE | 2017-09-15 09:22 | PCMIDPN ---
Assessment/Plan: Assessment: MRSA bacteremia in the setting of right lower extremity cellulitis. The cellulitis looks to be improved. More notable improvement in the upper portion of the lower extremity rather than the calf. Patient still maintains some tenderness. Patient however is afebrile and is eating well. Currently on daptomycin Q 48 hr. Creatinine kinase from yesterday is normal. Will continue to monitor. Expect to continue a peripheral IV until follow-up cultures are negative at 48 to 72 hr. Echocardiogram did not completely rule out endocarditis although if patient clears cultures quickly would suspect this is unlikely to be present in this circumstance. This is significant considering the difference between a 4 week and 6 week course of treatment. Plan: 1. Continue IV daptomycin Q 48 hr. 2. Follow up on repeat blood cultures. 3. Ultrasound right lower extremity to rule out DVT. 09/15/17 09:19 Subjective: Patient is sitting up in his chair in his hospital room. He is eating breakfast. He is alert and conversant. He is pleasant. States that tenderness is decreased somewhat in the right lower extremity. Swelling continues. No fevers or chills. Objective: Daptomycin # 5 Vital Signs Temp Pulse Resp BP Pulse Ox 37.1 C 118 H 18 118/79 96 09/15/17 07:18 09/15/17 07:18 09/15/17 07:18 09/15/17 07:18 09/15/17 07:18 Laboratory Results 09/15/17 03:23 09/15/17 03:23 09/14/17 09/15/17 09/16/17 05:59 05:59 05:59 Intake Total 1230 2370 Output Total 1400 775 200 Balance -170 1595 -200 - Physical Exam General Appearance: WD/WN, alert, no apparent distress, non-toxic Respiratory: lungs clear, normal breath sounds, No respiratory distress Cardiac/Chest: regular rate, rhythm, No tachycardia, No systolic murmur, No irregularly irregular Extremities: inflammation, swelling, erythema, No non-tender, No normal inspection Skin: normal color, warm/dry, No rash Neuro/Psych: alert, normal mood/affect ICD10 Worksheet Patient Problems: Problems Problem Status Onset Cellulitis Acute Elevated troponin Acute Chronic Disease Management/Transitional Care Program Active Closed right acetabular fracture Acute Edema Acute Fall on same level from tripping as cause of accidental injury Acute Fracture of right olecranon process Acute Hyperkalemia Acute Osteoarthritis of right hip Acute Pelvic fracture Acute
[2017-09-15] MEDS: DAPTOMYCIN IV SCH (09:39)
[2017-09-15] MEDS: SODIUM CL 0.9% IV SCH (09:39)
--- NOTE | 2017-09-15 11:14 | SOAPPROG ---
SOAP Progress Note Assessment/Plan: Assessment: Plan: 09/11/17 17:02 RLE Cellulitis: While he has some underlying chronic dermatitis on his legs, I think the increased erythema and swelling is likely cellulitis. Possible source may be new blister on RLE. WBC is normal, but increased neutrophils. Low grade temp, possibly less than it might be given prednisone. Given diabetes, and hx MRSA, will continue daptomycin and cefazolin. Blood and wound cx pending. I don' t think he clearly meets SIRS criteria, as temp <38.3, BP ok, tachycardic but has underlying atrial fib/flutter that isn't always well controlled, RR <20. Initial lactate positive, but negative on repeat. This may all be misleading though, given the prednisone. 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 Increased troponin: no chest pain. Hx CAD. Coronary calcium 445 in 08/16, with only 3% progression, representing stable disease. Increase may be related to tachycardia. Hasn't had beta jacinto today. Will recheck, but doubt significant coronary syndrome. Atrial fibrillation/flutter: rate variable, but per son, usually better controlled, though can run to the 120s. He is on metoprolol 25mg daily, and last dose yesterday, so this may be rebound tachycardia. BP typically low, so doesn't tolerate higher dose. Abnormal CXR: he has hx of central bronchiectasis on CT scan, so unclear if these findings are new. Radiology interpretation is edema vs pneumonitis/ pneumonia. Clinically doesn't look like pneumonia. With elevated BUN, creatine and very dry mouth, he looks more dehydrated than fluid overloaded. Has received 1L NS. Will check BNP, but continue gently hydration for now. Is usually on Bumex daily, but will hold for now. CKD: as noted above, looks dry. Cr seems a little higher than baseline. diabetes mellitus: on lantus. Blood sugars have been running high due to prednisone. Will continue lantus, add sliding scale premeal insulin as needed sleep apnea: brought his CPAP machine from home. 09/11/17 17:42 09/13/17 10:18 RLE cellulitis: improving slowly, and he is feeling better. Echo without obvious vegetations. Afebrile. Appreciate ID input. Now on daptomycin q48hrs. Will recheck CBC today given elevation in WBC yesterday and decreased plts MRSA bacteremia: as above, doing better, on daptomycin. Atrial fib/flutter: remains on low dose metoprolol, rate better than when he initially came in. CKD: Cr a little better yesterday, so will recheck today. Delicate fluid balance with renal failure, CHF CHF: elevated BNP yesterday, likely related to initial tachycardia above usual. Clinically doing well. Diabetes: blood sugars fluctuating. Increased Lantus to 34 units in the evening. Will continue to monitor. Bullous pemphigus: remains on prednisone 09/14/17 13:14 RLE cellulitis: Remains on daptomycin with slow improvement. Blood cx drawn today by ID. CK normal today regarding indurated area on R thigh. Atrial fibrillation: stable, rate fairly well-controlled CKD: Cr down to 2.1. Per discussion with pharmacy, will decrease allopurinol to 100mg daily. Diabetes: blood sugars continue to fluctuate. Per family, has been eating some sugary foods from outside the hospital. Bullous pemphigus: doxycycline discontinued on 09/12/17. To be restarted by ID. Remains on prednisone. Low platelet count: will d/c lovenox. Continue NASRIN hose, and will have PT/OT see to increase ambulation 09/15/17 11:14 RLE cellulitis: Remains afebrile, WBC has continued to improve. F/u blood cultures drawn yesterday. Remains on daptomycin q48hrs. His leg seems more swollen, which may simply be related to fluid and natural history of infection. Discussed with ID, and will check doppler. Has been on lovenox--last dose yesterday morning prior to d/c. Atrial fibrillation: stable CKD: creatinine down to 2.1. Will stop IVF and give single dose bumex to see if edema improves some. Low platelet count: off lovenox now. Hgb has been trending downward but suspect this is dilutional, due to fluids. No evidence of bleeding. Diabetes: blood sugars remain high, so will increase lantus dose DVT prophylaxis: on aspirin, using NASRIN hose. PT to see today to help with ambulation. 09/15/17 11:25 Subjective: C/o sore throat this morning. Has been bothering him the last couple of days. R leg still quite painful, especially in thigh. Objective: Vital Signs Temp Pulse Resp BP Pulse Ox 37.1 C 118 H 18 118/79 96 09/15/17 07:18 09/15/17 07:18 09/15/17 07:18 09/15/17 07:18 09/15/17 07:18 Laboratory Results 09/15/17 03:23 09/15/17 03:23 09/14/17 09/15/17 09/16/17 05:59 05:59 05:59 Intake Total 1230 2370 473 Output Total 1400 775 200 Balance -170 1595 273 General: awake, alert, NAD Neck: no masses Lungs: clear CV: irregularly irregular Abdomen: +bowel sounds, soft Extremities: RLE with increased edema in thigh. Some scrotal edema. Remains quite indurated and tender. Erythema much improved on upper leg, but remains erythematous in lower leg. ICD10 Worksheet Patient Problems: Problems Problem Status Onset Cellulitis Acute Elevated troponin Acute Chronic Disease Management/Transitional Care Program Active Closed right acetabular fracture Acute Edema Acute Fall on same level from tripping as cause of accidental injury Acute Fracture of right olecranon process Acute Hyperkalemia Acute Osteoarthritis of right hip Acute Pelvic fracture Acute
[2017-09-15] MEDS ORDERED: BUMETANIDE 1 MG TAB PO SCH (11:30)
--- NOTE | 2017-09-15 16:24 | ASMTCAGE ---
CAGE Do you feel you ought to Answers: Yes cut down on your drinking or drug use? Do people annoy you by Answers: Yes criticizing your drinking or drug use? Do you drink or use drugs Answers: No first thing in the morning ([employer])? Additional Comments Pt has some confusion. 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 Date Signed: 09/15/2017 04:24 PM Electronically Signed By:Cassy Vera RN
--- NOTE | 2017-09-15 16:30 | ASMTCMCOM ---
CM Note CM Note Notes: 09/15/2017 Case Management Note Met w/pt to complete CAGE assessment. Pt has stephon Bey [phone] (cell) [phone] (home) and BELGICA Chapman at [phone]. Earlier in the day case management faxed referrals to [facility] and [facility] for pricing on home antibiotic needs. Awaiting response. Pt accepted by [facility] for home RN and PT. Pt has refused PT today. Pt reports inability to stand d/t weakness. Pt has some confusion as we discussed d/c plans. Case Management faxed referral to [facility]. Pt has had 4 prior stays at [facility] and does not want to return to [facility]. Case Management d/c poc: to [facility] pending acceptance vs home with [facility] and home infusion. Case Management to follow. Date Signed: 09/15/2017 04:29 PM Electronically Signed By:Cassy Vera RN
[2017-09-15] MEDS: ACETAMINOPHEN 325 MG TAB PO PRN (21:19)
[2017-09-15] MEDS: INSULIN GLARGINE 100 UNITS/ML UNIT SC SCH (21:19)
[2017-09-15] MEDS: diphenhydrAMINE 25 MG CAP PO SCH (21:19)
[2017-09-15] MEDS: NIACIN 500 MG TAB PO SCH (21:19)
[2017-09-15] MEDS: MONTELUKAST SODIUM 10 MG TAB PO SCH (21:19)
[2017-09-15] MEDS: traMADol 50 MG TAB PO PRN (21:28)
[2017-09-16 04:02] LABS: PLATELET COUNT 68 10^3/uL (150-400)
[2017-09-16] MEDS: DICLOFENAC SODIUM 1% 100 GM GEL TP SCH ×4 (05:57→21:31)
--- NOTE | 2017-09-16 08:46 | SOAPPROG ---
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 Plan: Will continue with abx pr ID. PT/OT. Will need SNIF for completion of his antibiotics upon discharge. 09/16/17 08:44 MRS Subjective: Having less pain. Appetite is good today. Objective: Vital Signs Temp Pulse Resp BP Pulse Ox 98.9 F 103 H 16 108/62 95 09/16/17 07:57 09/16/17 07:57 09/16/17 07:57 09/16/17 07:57 09/16/17 07:57 Laboratory Results 09/16/17 03:22 09/16/17 03:22 09/15/17 09/16/17 09/17/17 05:59 05:59 05:59 Intake Total 2370 1123 Output Total 775 800 Balance 1595 323 COR regular but rapid rhythm. Oxygen sat is good. Legs are still red R>L, but less tender. Low BP this morning however his history is for having very low blood pressure regularly. ICD10 Worksheet Patient Problems: Problems Problem Status Onset Cellulitis Acute Elevated troponin Acute Chronic Disease Management/Transitional Care Program Active Closed right acetabular fracture Acute Edema Acute Fall on same level from tripping as cause of accidental injury Acute Fracture of right olecranon process Acute Hyperkalemia Acute Osteoarthritis of right hip Acute Pelvic fracture Acute
[2017-09-16] MEDS: LIPASE PO SCH ×3 (08:50→18:38)
[2017-09-16] MEDS: PANTOPRAZOLE SODIUM 40 MG TAB PO SCH (08:50)
[2017-09-16] MEDS: SILDENAFIL CITRATE 20 MG TAB PO SCH ×3 (08:50→21:29)
[2017-09-16] MEDS: PROTEASE PO SCH ×3 (08:50→18:38)
[2017-09-16] MEDS: AMYLASE PO SCH ×3 (08:50→18:38)
[2017-09-16] MEDS: ASCORBIC ACID 250 MG TAB PO SCH ×2 (08:51→21:30)
[2017-09-16] MEDS: predniSONE 20 MG TAB PO SCH (08:51)
[2017-09-16] MEDS: DOXYCYCLINE HYCLATE 100 MG CAP/TAB PO SCH (08:52)
[2017-09-16] MEDS: MAGNESIUM OXIDE 400 MG TAB PO SCH (08:52)
[2017-09-16] MEDS: CETIRIZINE 10 MG TAB PO SCH (08:52)
[2017-09-16] MEDS: ALLOPURINOL 100 MG TAB PO SCH (08:52)
[2017-09-16] MEDS: FERROUS SULFATE 325 MG TAB PO SCH ×2 (08:52→21:29)
[2017-09-16] MEDS: ASPIRIN 81 MG CHEWABLE TAB PO SCH (08:52)
[2017-09-16] MEDS: METOPROLOL SUCCINATE XR 25 MG TAB PO SCH (08:52)
[2017-09-16] MEDS: DOCUSATE SODIUM 100 MG CAP PO SCH ×2 (08:52→21:31)
[2017-09-16] MEDS: INSULIN LISPRO 100 UNIT/ML SC SCH ×3 (08:52→18:38)
[2017-09-16] MEDS: MULTIVITAMINS 1 EACH TAB PO SCH (08:52)
[2017-09-16] MEDS: SENNOSIDES/DOCUSATE SODIUM TAB PO SCH ×2 (08:53→21:30)
[2017-09-16] MEDS: traMADol 50 MG TAB PO PRN (09:28)
--- NOTE | 2017-09-16 14:09 | PCMIDPN ---
Assessment/Plan: Assessment/ Plan: 1. SEpsis with MRSa bacteremia: -Currently on Dapto. Given #4 avoiding vanco - Dapto SANDIE <1 -secondary to #2 most likely -f/u blood cx from 09/14/17 ngtd so far - CPK/LFT on 09/14/17 wnl. Continue to monitor while on therapy. - pravastatin on hold while on dapto. -plan for picc line in AM -TTE with no obvious vegetations noted. -HX of pacer and bioprothetic MV -Plan for prolonged course of treatment 2. RLE cellulitis: -STill with significant erythema noted -continue LE elevation. Discussed importance with patient - wound on right leg with Mrsa (dapto sandie <1) 3. Bullous pemphigoid Hx -on doxy 4. RI; MEds dapto 550mg q48 - 09/13/17 doxy 100mg daily- - Subjective: Sitting in chair. afebrile. Feelng better overall. less tenderness. still with swellling. RLE still red. denies sob, diarrhea. Objective: Vital Signs Temp Pulse Resp BP Pulse Ox 36.7 C 111 H 16 99/55 L 91 L 09/16/17 11:50 09/16/17 11:50 09/16/17 11:50 09/16/17 11:50 09/16/17 11:50 Laboratory Results 09/16/17 03:22 09/16/17 03:22 09/15/17 09/16/17 09/17/17 05:59 05:59 05:59 Intake Total 2370 1123 Output Total 775 800 240 Balance 1595 323 -240 - Physical Exam General Appearance: alert, no apparent distress Respiratory: lungs clear Cardiac/Chest: regular rate, rhythm Extremities: swelling, other (B/L LE edema from thighs down.) Abdomen: normal bowel sounds, non-tender, soft, No distended Skin: erythema (Right thigh/leg with erythema. some retraction from demarcated areas. still with significant swelling. warm to touch. ) ICD10 Worksheet Patient Problems: Problems Problem Status Onset Cellulitis Acute Elevated troponin Acute Chronic Disease Management/Transitional Care Program Active Closed right acetabular fracture Acute Edema Acute Fall on same level from tripping as cause of accidental injury Acute Fracture of right olecranon process Acute Hyperkalemia Acute Osteoarthritis of right hip Acute Pelvic fracture Acute
--- NOTE | 2017-09-16 15:24 | ASMTCMCOM ---
CM Note CM Note Notes: CM met w/ pt for dispo planning. CM spoke w/ Michael and Miriam regarding cost of home infusion. Pt reports that he is unable to afford the cost. CM communicated w/ the home infusion companies that he will not be using them. Pt is agreeable to going to SNF. Pt would like CM to speak to his daughter in law, Adela. CM spoke w/ Adela and she reports that he would benefit greatly from SNF. Adela would like CM to make a referral to [facility]. CM sent referral to [facility]. CM completed non triggering PASRR. CM to follow. Plan: SNF Date Signed: 09/16/2017 03:23 PM Electronically Signed By:LATESHA Monroe
[2017-09-16] MEDS: INSULIN GLARGINE 100 UNITS/ML UNIT SC SCH (21:26)
[2017-09-16] MEDS: diphenhydrAMINE 25 MG CAP PO SCH (21:29)
[2017-09-16] MEDS: MONTELUKAST SODIUM 10 MG TAB PO SCH (21:29)
[2017-09-16] MEDS: NIACIN 500 MG TAB PO SCH (21:30)
[2017-09-16] MEDS: HEPARIN 5,000 UNIT/0.5 ML SYR SC SCH (21:31)
[2017-09-17] MEDS: DICLOFENAC SODIUM 1% 100 GM GEL TP SCH ×4 (06:52→21:51)
[2017-09-17] MEDS: HEPARIN 5,000 UNIT/0.5 ML SYR SC SCH ×3 (06:53→18:36)
[2017-09-17] MEDS: INSULIN LISPRO 100 UNIT/ML SC SCH ×3 (10:16→18:36)
[2017-09-17] MEDS: ALLOPURINOL 100 MG TAB PO SCH (10:17)
[2017-09-17] MEDS: METOPROLOL SUCCINATE XR 25 MG TAB PO SCH (10:17)
[2017-09-17] MEDS: ASCORBIC ACID 250 MG TAB PO SCH ×2 (10:17→21:50)
[2017-09-17] MEDS: ASPIRIN 81 MG CHEWABLE TAB PO SCH (10:18)
[2017-09-17] MEDS: SILDENAFIL CITRATE 20 MG TAB PO SCH ×3 (10:18→21:50)
[2017-09-17] MEDS: predniSONE 20 MG TAB PO SCH (10:18)
[2017-09-17] MEDS: MULTIVITAMINS 1 EACH TAB PO SCH (10:18)
[2017-09-17] MEDS: FERROUS SULFATE 325 MG TAB PO SCH ×2 (10:18→21:51)
[2017-09-17] MEDS: MAGNESIUM OXIDE 400 MG TAB PO SCH (10:18)
[2017-09-17] MEDS: CETIRIZINE 10 MG TAB PO SCH (10:19)
[2017-09-17] MEDS: DOCUSATE SODIUM 100 MG CAP PO SCH ×2 (10:19→21:49)
[2017-09-17] MEDS: DOXYCYCLINE HYCLATE 100 MG CAP/TAB PO SCH (10:19)
[2017-09-17] MEDS: LIPASE PO SCH ×3 (10:20→18:35)
[2017-09-17] MEDS: PROTEASE PO SCH ×3 (10:20→18:35)
[2017-09-17] MEDS: AMYLASE PO SCH ×3 (10:20→18:35)
[2017-09-17] MEDS: CEPACOL LOZENGE PO PRN (10:20)
[2017-09-17] MEDS: PANTOPRAZOLE SODIUM 40 MG TAB PO SCH (10:21)
[2017-09-17] MEDS: DAPTOMYCIN IV SCH (10:38)
[2017-09-17] MEDS: SENNOSIDES/DOCUSATE SODIUM TAB PO SCH ×2 (10:38→21:50)
[2017-09-17] MEDS: SODIUM CL 0.9% IV SCH (10:38)
--- NOTE | 2017-09-17 11:52 | SOAPPROG ---
SOAP Progress Note Assessment/Plan: Assessment: Plan: 09/11/17 17:02 RLE Cellulitis: While he has some underlying chronic dermatitis on his legs, I think the increased erythema and swelling is likely cellulitis. Possible source may be new blister on RLE. WBC is normal, but increased neutrophils. Low grade temp, possibly less than it might be given prednisone. Given diabetes, and hx MRSA, will continue daptomycin and cefazolin. Blood and wound cx pending. I don' t think he clearly meets SIRS criteria, as temp <38.3, BP ok, tachycardic but has underlying atrial fib/flutter that isn't always well controlled, RR <20. Initial lactate positive, but negative on repeat. This may all be misleading though, given the prednisone. 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 Increased troponin: no chest pain. Hx CAD. Coronary calcium 445 in 08/16, with only 3% progression, representing stable disease. Increase may be related to tachycardia. Hasn't had beta jacinto today. Will recheck, but doubt significant coronary syndrome. Atrial fibrillation/flutter: rate variable, but per son, usually better controlled, though can run to the 120s. He is on metoprolol 25mg daily, and last dose yesterday, so this may be rebound tachycardia. BP typically low, so doesn't tolerate higher dose. Abnormal CXR: he has hx of central bronchiectasis on CT scan, so unclear if these findings are new. Radiology interpretation is edema vs pneumonitis/ pneumonia. Clinically doesn't look like pneumonia. With elevated BUN, creatine and very dry mouth, he looks more dehydrated than fluid overloaded. Has received 1L NS. Will check BNP, but continue gently hydration for now. Is usually on Bumex daily, but will hold for now. CKD: as noted above, looks dry. Cr seems a little higher than baseline. diabetes mellitus: on lantus. Blood sugars have been running high due to prednisone. Will continue lantus, add sliding scale premeal insulin as needed sleep apnea: brought his CPAP machine from home. 09/11/17 17:42 09/13/17 10:18 RLE cellulitis: improving slowly, and he is feeling better. Echo without obvious vegetations. Afebrile. Appreciate ID input. Now on daptomycin q48hrs. Will recheck CBC today given elevation in WBC yesterday and decreased plts MRSA bacteremia: as above, doing better, on daptomycin. Atrial fib/flutter: remains on low dose metoprolol, rate better than when he initially came in. CKD: Cr a little better yesterday, so will recheck today. Delicate fluid balance with renal failure, CHF CHF: elevated BNP yesterday, likely related to initial tachycardia above usual. Clinically doing well. Diabetes: blood sugars fluctuating. Increased Lantus to 34 units in the evening. Will continue to monitor. Bullous pemphigus: remains on prednisone 09/14/17 13:14 RLE cellulitis: Remains on daptomycin with slow improvement. Blood cx drawn today by ID. CK normal today regarding indurated area on R thigh. Atrial fibrillation: stable, rate fairly well-controlled CKD: Cr down to 2.1. Per discussion with pharmacy, will decrease allopurinol to 100mg daily. Diabetes: blood sugars continue to fluctuate. Per family, has been eating some sugary foods from outside the hospital. Bullous pemphigus: doxycycline discontinued on 09/12/17. To be restarted by ID. Remains on prednisone. Low platelet count: will d/c lovenox. Continue NASRIN hose, and will have PT/OT see to increase ambulation 09/15/17 11:14 RLE cellulitis: Remains afebrile, WBC has continued to improve. F/u blood cultures drawn yesterday. Remains on daptomycin q48hrs. His leg seems more swollen, which may simply be related to fluid and natural history of infection. Discussed with ID, and will check doppler. Has been on lovenox--last dose yesterday morning prior to d/c. Atrial fibrillation: stable CKD: creatinine down to 2.1. Will stop IVF and give single dose bumex to see if edema improves some. Low platelet count: off lovenox now. Hgb has been trending downward but suspect this is dilutional, due to fluids. No evidence of bleeding. Diabetes: blood sugars remain high, so will increase lantus dose DVT prophylaxis: on aspirin, using NASRIN hose. PT to see today to help with ambulation. 09/15/17 11:25 09/17/17 11:52 MRSA bacteremia, sepsis: on review of [facility] criteria for sepsis, pt did meet critieria for sepsis with lactate 2.1, platelet count <100, altered mental status. RLE cellulitis: slow to respond. Remains on daptomycin. F/u blood cx negative so far. Per ID, PICC to be placed today for shelter antibiotics. Not ordered, so will order in anticipation of transfer to SNF for shelter antibx. Bullous pemphigus: on doxycycline DVT prophylaxis: SQ heparin ordered. Held this morning due to low platelet count , but hasn't been below 50K. Pt is high risk for clot, and at some increased risk for bleeding as well. Will resume heparin and monitor closely. Atrial fibrillation: stable Diabetes mellitus: blood sugars remain high, likely impairing healing. Will increase lantus. CKD: stable. Sore throat: no suggestion thrush so will continue cepacol lozenges for now. Dispo: anticipate d/c to SNF for shelter antibx and rehab. Just spoke with DC strategic planner. SNF will not take pt due to cost of daptomycin. Will see if he qualifies for inpatient rehab. If not, consider [facility]. Pt not a great candidate for going home with home infusions due to debility, with dementia, cost. 09/17/17 12:37 Subjective: Continues to complain of sore throat, no worse. Pain in R leg a little less. Scrotum swollen, mildly uncomfortable. Objective: Vital Signs Temp Pulse Resp BP Pulse Ox 36.7 C 99 16 114/69 95 09/17/17 08:00 09/17/17 10:17 09/17/17 08:00 09/17/17 08:00 09/17/17 08:00 Laboratory Results 09/16/17 03:22 09/16/17 03:22 09/16/17 09/17/17 09/18/17 05:59 05:59 05:59 Intake Total 1123 450 Output Total 800 1090 Balance 323 -640 General: sitting in chair eating breadfast, awake, alert HEENT: o/p dry, erythematous, but no thrush Lungs: clear CV: irregularly irregular Abdomen: +bowel sounds, soft : scrotum with mild edema, less than previously Extremities: RLE remains quite edematous, erythematous. ICD10 Worksheet Patient Problems: Problems Problem Status Onset Cellulitis Acute Elevated troponin Acute Chronic Disease Management/Transitional Care Program Active Closed right acetabular fracture Acute Edema Acute Fall on same level from tripping as cause of accidental injury Acute Fracture of right olecranon process Acute Hyperkalemia Acute Osteoarthritis of right hip Acute Pelvic fracture Acute
[2017-09-17] MEDS ORDERED: ALTEPLASE 2 MG VIAL IVP PRN (12:19)
--- NOTE | 2017-09-17 13:40 | PCMIDPN ---
Assessment/Plan: Assessment: MRSA bacteremia in the setting of right lower extremity cellulitis. The cellulitis is definitely improving. Patient still maintains some tenderness. Patient however is afebrile and is eating well. Currently on daptomycin Q 48 hr. Creatinine kinase is normal. Will continue to monitor. Expect to continue a peripheral IV until follow-up cultures are negative at 48 to 72 hr. Echocardiogram did not completely rule out endocarditis although if patient clears cultures quickly would suspect this is unlikely to be present in this circumstance. This is significant considering the difference between a 4 week and 6 week course of treatment. Plan: 1. Continue IV daptomycin Q 48 hr. 2. Follow up on repeat blood cultures. 3. Follow clinical course. 09/15/17 09:19 09/17/17 15:25 Subjective: Patient is improved. Notes that his lower extremity is getting better but his scrotum still remains swollen. No fevers or chills. Objective: Daptomycin # 7 Vital Signs Temp Pulse Resp BP Pulse Ox 36.7 C 99 16 114/69 95 09/17/17 08:00 09/17/17 10:17 09/17/17 08:00 09/17/17 08:00 09/17/17 08:00 Laboratory Results 09/16/17 03:22 09/16/17 03:22 09/16/17 09/17/17 09/18/17 05:59 05:59 05:59 Intake Total 1123 450 Output Total 800 1090 Balance 323 -640 - Physical Exam General Appearance: WD/WN, alert, no apparent distress, non-toxic Respiratory: lungs clear, normal breath sounds, No respiratory distress Cardiac/Chest: regular rate, rhythm, No tachycardia Extremities: erythema (Mild), No non-tender, No normal inspection Skin: normal color, warm/dry, No rash Neuro/Psych: alert, normal mood/affect, oriented x 3 ICD10 Worksheet Patient Problems: Problems Problem Status Onset Cellulitis Acute Elevated troponin Acute Chronic Disease Management/Transitional Care Program Active Closed right acetabular fracture Acute Edema Acute Fall on same level from tripping as cause of accidental injury Acute Fracture of right olecranon process Acute Hyperkalemia Acute Osteoarthritis of right hip Acute Pelvic fracture Acute
--- NOTE | 2017-09-17 15:01 | ASMTCMCOM ---
CM Note CM Note Notes: CM spoke w/ Samira, RN, Dr. Sosa and Dr. Mccurdy regarding d/c POC. [facility] and [facility] are unable to accept pt if he is on the iv dapo, due to the cost. Dr. Sosa put in an order for [facility] inpatient rehab. If pt is unable to get into [facility] inpatient rehab the plan is for pt to remain in the hospital. Dr. Sosa does not feel that it is a safe for pt to go home at this moment in time. CM spoke w/ Aleyda Medrano at [facility] inpatient rehab. Aleyda will see if pt will qualify. [place] communicated this to pts daughter in law, Adela. CM to follow. Plan: Inpatient rehab; pending acceptance Date Signed: 09/17/2017 03:00 PM Electronically Signed By:LATESHA Monroe
--- NOTE | 2017-09-17 15:50 | PDRADPN ---
Radiology Procedure Note Date of Procedure: 09/17/17 Radiologist: Fam Earl Anesthesia: Local (Specify) Pre-op Diagnosis: infection Post-op Diagnosis: same Indication: venous access Procedure: RUE PICC Finding(s): tip of catheter at cavoatrial junction Inf/Abcess present in the surg proc area at time of surgery?: No EBL: Minimal Complications: none
[2017-09-17] MEDS: INSULIN GLARGINE 100 UNITS/ML UNIT SC SCH (21:49)
[2017-09-17] MEDS: NIACIN 500 MG TAB PO SCH (21:50)
[2017-09-17] MEDS: diphenhydrAMINE 25 MG CAP PO SCH (21:50)
[2017-09-17] MEDS: ACETAMINOPHEN 325 MG TAB PO PRN (22:03)
[2017-09-17] MEDS: MONTELUKAST SODIUM 10 MG TAB PO SCH (22:38)
[2017-09-18] MEDS: HEPARIN 5,000 UNIT/0.5 ML SYR SC SCH ×3 (02:07→17:33)
[2017-09-18 04:38] LABS: PLATELET COUNT 73 10^3/uL (150-400)
[2017-09-18] MEDS: DICLOFENAC SODIUM 1% 100 GM GEL TP SCH ×4 (05:55→21:03)
--- NOTE | 2017-09-18 08:48 | SOAPPROG ---
SOAP Progress Note Assessment/Plan: Assessment: Plan: 09/11/17 17:02 RLE Cellulitis: While he has some underlying chronic dermatitis on his legs, I think the increased erythema and swelling is likely cellulitis. Possible source may be new blister on RLE. WBC is normal, but increased neutrophils. Low grade temp, possibly less than it might be given prednisone. Given diabetes, and hx MRSA, will continue daptomycin and cefazolin. Blood and wound cx pending. I don' t think he clearly meets SIRS criteria, as temp <38.3, BP ok, tachycardic but has underlying atrial fib/flutter that isn't always well controlled, RR <20. Initial lactate positive, but negative on repeat. This may all be misleading though, given the prednisone. 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 Increased troponin: no chest pain. Hx CAD. Coronary calcium 445 in 08/16, with only 3% progression, representing stable disease. Increase may be related to tachycardia. Hasn't had beta jacinto today. Will recheck, but doubt significant coronary syndrome. Atrial fibrillation/flutter: rate variable, but per son, usually better controlled, though can run to the 120s. He is on metoprolol 25mg daily, and last dose yesterday, so this may be rebound tachycardia. BP typically low, so doesn't tolerate higher dose. Abnormal CXR: he has hx of central bronchiectasis on CT scan, so unclear if these findings are new. Radiology interpretation is edema vs pneumonitis/ pneumonia. Clinically doesn't look like pneumonia. With elevated BUN, creatine and very dry mouth, he looks more dehydrated than fluid overloaded. Has received 1L NS. Will check BNP, but continue gently hydration for now. Is usually on Bumex daily, but will hold for now. CKD: as noted above, looks dry. Cr seems a little higher than baseline. diabetes mellitus: on lantus. Blood sugars have been running high due to prednisone. Will continue lantus, add sliding scale premeal insulin as needed sleep apnea: brought his CPAP machine from home. 09/11/17 17:42 09/13/17 10:18 RLE cellulitis: improving slowly, and he is feeling better. Echo without obvious vegetations. Afebrile. Appreciate ID input. Now on daptomycin q48hrs. Will recheck CBC today given elevation in WBC yesterday and decreased plts MRSA bacteremia: as above, doing better, on daptomycin. Atrial fib/flutter: remains on low dose metoprolol, rate better than when he initially came in. CKD: Cr a little better yesterday, so will recheck today. Delicate fluid balance with renal failure, CHF CHF: elevated BNP yesterday, likely related to initial tachycardia above usual. Clinically doing well. Diabetes: blood sugars fluctuating. Increased Lantus to 34 units in the evening. Will continue to monitor. Bullous pemphigus: remains on prednisone 09/14/17 13:14 RLE cellulitis: Remains on daptomycin with slow improvement. Blood cx drawn today by ID. CK normal today regarding indurated area on R thigh. Atrial fibrillation: stable, rate fairly well-controlled CKD: Cr down to 2.1. Per discussion with pharmacy, will decrease allopurinol to 100mg daily. Diabetes: blood sugars continue to fluctuate. Per family, has been eating some sugary foods from outside the hospital. Bullous pemphigus: doxycycline discontinued on 09/12/17. To be restarted by ID. Remains on prednisone. Low platelet count: will d/c lovenox. Continue NASRIN hose, and will have PT/OT see to increase ambulation 09/15/17 11:14 RLE cellulitis: Remains afebrile, WBC has continued to improve. F/u blood cultures drawn yesterday. Remains on daptomycin q48hrs. His leg seems more swollen, which may simply be related to fluid and natural history of infection. Discussed with ID, and will check doppler. Has been on lovenox--last dose yesterday morning prior to d/c. Atrial fibrillation: stable CKD: creatinine down to 2.1. Will stop IVF and give single dose bumex to see if edema improves some. Low platelet count: off lovenox now. Hgb has been trending downward but suspect this is dilutional, due to fluids. No evidence of bleeding. Diabetes: blood sugars remain high, so will increase lantus dose DVT prophylaxis: on aspirin, using NASRIN hose. PT to see today to help with ambulation. 09/15/17 11:25 09/17/17 11:52 MRSA bacteremia, sepsis: on review of [facility] criteria for sepsis, pt did meet critieria for sepsis with lactate 2.1, platelet count <100, altered mental status. RLE cellulitis: slow to respond. Remains on daptomycin. F/u blood cx negative so far. Per ID, PICC to be placed today for assisted antibiotics. Not ordered, so will order in anticipation of transfer to SNF for assisted antibx. Bullous pemphigus: on doxycycline DVT prophylaxis: SQ heparin ordered. Held this morning due to low platelet count , but hasn't been below 50K. Pt is high risk for clot, and at some increased risk for bleeding as well. Will resume heparin and monitor closely. Atrial fibrillation: stable Diabetes mellitus: blood sugars remain high, likely impairing healing. Will increase lantus. CKD: stable. Sore throat: no suggestion thrush so will continue cepacol lozenges for now. Dispo: anticipate d/c to SNF for assisted antibx and rehab. Just spoke with DC planner intern. SNF will not take pt due to cost of daptomycin. Will see if he qualifies for inpatient rehab. If not, consider [facility] facility. Pt not a great candidate for going home with home infusions due to debility, with dementia, cost. 09/17/17 12:37 09/18/17 08:46 RLE cellulitis: remains on daptomycin. Slow progress. Atrial fibrillation: stable Diabetes mellitus: blood sugars continue to be high. Will increase humalog sliding scale. CKD: creatinine down to 1.8. Will add bumex to try and decrease LE edema. Will need to monitor closely. 09/18/17 08:48 09/18/17 08:50 Subjective: No new complaints. Throat still sore--cepacol helps. Objective: Vital Signs Temp Pulse Resp BP Pulse Ox 36.5 C 104 H 16 88/54 L 96 09/18/17 04:00 09/18/17 04:00 09/18/17 04:00 09/18/17 04:33 09/18/17 04:00 Laboratory Results 09/18/17 04:25 09/18/17 04:25 09/17/17 09/18/17 09/19/17 05:59 05:59 05:59 Intake Total 450 820 Output Total 1090 730 Balance -640 90 General: sitting in chair, eating, spirits good Lungs: clear CV: irregularly irregular, no murmur Abdomen: +bowel sounds, soft Extremities: persistant edema, R>L, and persistant erythema RLE ICD10 Worksheet Patient Problems: Problems Problem Status Onset Cellulitis Acute Elevated troponin Acute Chronic Disease Management/Transitional Care Program Active Closed right acetabular fracture Acute Edema Acute Fall on same level from tripping as cause of accidental injury Acute Fracture of right olecranon process Acute Hyperkalemia Acute Osteoarthritis of right hip Acute Pelvic fracture Acute
[2017-09-18] MEDS ORDERED: D50W 25 GM/50 ML SYR IVP PRN ×2 (08:55→08:57)
[2017-09-18] MEDS: MULTIVITAMINS 1 EACH TAB PO SCH (09:01)
[2017-09-18] MEDS: LIPASE PO SCH ×3 (09:01→17:32)
[2017-09-18] MEDS: SENNOSIDES/DOCUSATE SODIUM TAB PO SCH ×2 (09:01→21:03)
[2017-09-18] MEDS: ASPIRIN 81 MG CHEWABLE TAB PO SCH (09:01)
[2017-09-18] MEDS: AMYLASE PO SCH ×3 (09:01→17:32)
[2017-09-18] MEDS: ALLOPURINOL 100 MG TAB PO SCH (09:01)
[2017-09-18] MEDS: ASCORBIC ACID 250 MG TAB PO SCH ×2 (09:01→21:01)
[2017-09-18] MEDS: PROTEASE PO SCH ×3 (09:01→17:32)
[2017-09-18] MEDS: DOCUSATE SODIUM 100 MG CAP PO SCH ×2 (09:01→21:02)
[2017-09-18] MEDS: CETIRIZINE 10 MG TAB PO SCH (09:01)
[2017-09-18] MEDS: MAGNESIUM OXIDE 400 MG TAB PO SCH (09:02)
[2017-09-18] MEDS: predniSONE 20 MG TAB PO SCH (09:02)
[2017-09-18] MEDS: FERROUS SULFATE 325 MG TAB PO SCH ×2 (09:02→21:03)
[2017-09-18] MEDS: METOPROLOL SUCCINATE XR 25 MG TAB PO SCH (09:02)
[2017-09-18] MEDS: PANTOPRAZOLE SODIUM 40 MG TAB PO SCH (09:02)
[2017-09-18] MEDS: DOXYCYCLINE HYCLATE 100 MG CAP/TAB PO SCH (09:02)
[2017-09-18] MEDS: SILDENAFIL CITRATE 20 MG TAB PO SCH ×3 (09:06→21:03)
[2017-09-18] MEDS: INSULIN LISPRO 100 UNIT/ML SC SCH ×3 (09:07→17:36)
[2017-09-18] MEDS ORDERED: LIDOCAINE 1% 300 MG/30 ML SDV ONE (10:53)
[2017-09-18] MEDS: CEPACOL LOZENGE PO PRN ×2 (12:19→21:09)
[2017-09-18] MEDS: BUMETANIDE 1 MG TAB PO SCH (12:19)
--- NOTE | 2017-09-18 14:32 | PCMIDPN ---
Assessment/Plan: Assessment: MRSA bacteremia in the setting of right lower extremity cellulitis. The cellulitis is slowly improving. Blood cultures remain clean. Patient will likely need a 4 week course of treatment. The 1st 2 weeks should be definitely IV daptomycin. Exploring possibility of the remaining 2 weeks potentially going to an oral agent. Plan: 1. Continue IV daptomycin Q 48 hr. 2. Follow up on repeat blood cultures. 3. Follow clinical course. Subjective: Patient is resting in his chair in his hospital room. He is also being worked with by physical therapy. No complaints. No fevers or chills. Objective: Daptomycin # 8 Vital Signs Temp Pulse Resp BP Pulse Ox 36.9 C 108 H 20 108/69 96 09/18/17 11:48 09/18/17 11:48 09/18/17 11:48 09/18/17 11:48 09/18/17 11:48 Laboratory Results 09/18/17 04:25 09/18/17 04:25 09/17/17 09/18/17 09/19/17 05:59 05:59 05:59 Intake Total 450 820 Output Total 1090 730 475 Balance -640 90 -475 - Physical Exam General Appearance: WD/WN, alert, no apparent distress, non-toxic Respiratory: lungs clear, normal breath sounds Cardiac/Chest: regular rate, rhythm, No tachycardia Extremities: swelling, erythema, No non-tender, No normal inspection Skin: normal color, warm/dry, No rash Neuro/Psych: alert, normal mood/affect, oriented x 3 ICD10 Worksheet Patient Problems: Problems Problem Status Onset Cellulitis Acute Elevated troponin Acute Chronic Disease Management/Transitional Care Program Active Closed right acetabular fracture Acute Edema Acute Fall on same level from tripping as cause of accidental injury Acute Fracture of right olecranon process Acute Hyperkalemia Acute Osteoarthritis of right hip Acute Pelvic fracture Acute
[2017-09-18] MEDS: NIACIN 500 MG TAB PO SCH (21:02)
[2017-09-18] MEDS: diphenhydrAMINE 25 MG CAP PO SCH (21:02)
[2017-09-18] MEDS: MONTELUKAST SODIUM 10 MG TAB PO SCH (21:02)
[2017-09-18] MEDS: INSULIN GLARGINE 100 UNITS/ML UNIT SC SCH (21:08)
[2017-09-19] MEDS: HEPARIN 5,000 UNIT/0.5 ML SYR SC SCH ×3 (03:30→19:15)
[2017-09-19] MEDS: DICLOFENAC SODIUM 1% 100 GM GEL TP SCH ×4 (06:37→21:47)
[2017-09-19 07:12] LABS: PLATELET COUNT 92 10^3/uL (150-400)
[2017-09-19] MEDS: SODIUM CL 0.9% IV SCH (08:53)
[2017-09-19] MEDS: DAPTOMYCIN IV SCH (08:53)
[2017-09-19] MEDS: INSULIN LISPRO 100 UNIT/ML SC SCH ×3 (08:54→17:56)
[2017-09-19] MEDS: DOCUSATE SODIUM 100 MG CAP PO SCH ×2 (08:55→21:42)
[2017-09-19] MEDS: FERROUS SULFATE 325 MG TAB PO SCH ×2 (08:55→21:43)
[2017-09-19] MEDS: MULTIVITAMINS 1 EACH TAB PO SCH (08:55)
[2017-09-19] MEDS: ASCORBIC ACID 250 MG TAB PO SCH ×2 (08:55→21:43)
[2017-09-19] MEDS: METOPROLOL SUCCINATE XR 25 MG TAB PO SCH (08:55)
[2017-09-19] MEDS: PROTEASE PO SCH ×3 (08:56→17:58)
[2017-09-19] MEDS: PANTOPRAZOLE SODIUM 40 MG TAB PO SCH (08:56)
[2017-09-19] MEDS: SENNOSIDES/DOCUSATE SODIUM TAB PO SCH ×2 (08:56→21:42)
[2017-09-19] MEDS: DOXYCYCLINE HYCLATE 100 MG CAP/TAB PO SCH (08:56)
[2017-09-19] MEDS: LIPASE PO SCH ×3 (08:56→17:58)
[2017-09-19] MEDS: AMYLASE PO SCH ×3 (08:56→17:58)
[2017-09-19] MEDS: BUMETANIDE 1 MG TAB PO SCH (08:57)
[2017-09-19] MEDS: SILDENAFIL CITRATE 20 MG TAB PO SCH ×3 (08:57→21:44)
[2017-09-19] MEDS: ASPIRIN 81 MG CHEWABLE TAB PO SCH (08:57)
[2017-09-19] MEDS: MAGNESIUM OXIDE 400 MG TAB PO SCH (08:57)
[2017-09-19] MEDS: ALLOPURINOL 100 MG TAB PO SCH (08:57)
[2017-09-19] MEDS: predniSONE 20 MG TAB PO SCH (08:57)
[2017-09-19] MEDS: CETIRIZINE 10 MG TAB PO SCH (08:57)
--- NOTE | 2017-09-19 10:10 | SOAPPROG ---
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 Has been on doxy as outpt for bullous pemphigus will hold. RLE is stable - no increased erythema outside of marked areas on leg yesterday, he reports less pain and feeling better today compared to yesterday. Less groggy, mentating better. Will discuss abx w/ ID Dr Ottoniel Mike and adjust accordingly. -CKD - on maintenance IVF now, rec'd bolus and 125 overnight, watch i/o w/ h/o chf and elev BNP yet clinically dry and elev BUN. Renally dose meds. -a fib/flutter w/ rvr - bp low end so treating carefully w/ fluid balance and low dose beta jacinto -DM - cont usual meds and fsbs -dvt proph- lovenox Plan: 09/12/17 09:32 09/12/17 09:42 09/19/17 09:57 86 yo male w/ MMP w/ slow healing RLE cellulitis in setting of bullous pemphigus , DM, CKD, afib/flutter, edema. -MRSA - newer bcx are remaining neg, on q 48 hr IV daptomycin, elev legs, will try scd's vs kristen wrap legs to assist - has skin lesions/blisters and some concern w/ compression on these, RN will try kristen wrap and see if this helps - pt and son requesting these, trial w/ bumex today to help w/ edema while watching Cr closely, per ID will cont on dapto IV x 2 weeks w/ ? of possible change to po abx for 2 additional weeks. -CKD - improving LEONIDES on CKD in the setting of acute initial bacteremia/sepsis w / cellulitis RLE rx'd IV hydration and improving BUN: adm: 85-> 78-> 60 Cr: adm. 2.6 -> 2.1 -> 1.8 GFR: ADM: 23 -> 30 -> 36 EGFR range 27- 37 over past yr Risk Factors: as above. Treatment: IVF, Follow Renal fx, renal dose IVABX, -DM - cont insulin, fsbs -bullous pemphigus - w/ increased lesions - cont on doxy, wound care, trial w/ kristen wrap for gentle compression w/ edema -dvt prohp - back on hep -dispo - will f/u case mngt - issues over getting IV daptomycin, rehab eval pending today. Subjective: Feeling better today but is on toilet trying for BM during rounds Objective: Vital Signs Temp Pulse Resp BP Pulse Ox 36.6 C 109 H 12 122/73 H 94 09/19/17 07:30 09/19/17 07:30 09/19/17 07:30 09/19/17 07:30 09/19/17 07:30 Microbiology 09/14/17 04:50 Blood Culture - Final Blood 09/14/17 04:45 Blood Culture - Final Blood Laboratory Results 09/19/17 06:35 09/19/17 06:35 09/18/17 09/19/17 09/20/17 05:59 05:59 05:59 Intake Total 820 1220 Output Total 730 1825 Balance 90 -605 GEN; pleasant in brighter spirits, alert, oriented EXT: still w/ edema, new blisters - w dressings and RLE erythema persisting ICD10 Worksheet Patient Problems: Problems Problem Status Onset Edema Acute Hyperkalemia Acute Elevated troponin Acute Cellulitis Acute Osteoarthritis of right hip Acute Chronic Disease Management/Transitional Care Program Active Fall on same level from tripping as cause of accidental injury Acute Fracture of right olecranon process Acute Closed right acetabular fracture Acute Pelvic fracture Acute
--- NOTE | 2017-09-19 12:23 | PCMIDPN ---
Assessment/Plan: # MRSA bacteremia source RLE cellulitis, very faint erythema remains over patricia and R lateral thigh. Notable MRSA resistance pattern below w/o PO options except for linezolid. --plans for LTAC transfer today, will give 4 weeks IV renal dose daptomycin. Stop date 10/10/2017 # Renal insufficiency: electing for daptomycin in this elderly patient with low CrCl meds blood cx 2/2 MRSA Resistant to Doxycycline& bactrim; ENRIQUETA vancomycin = 1, daptomycin <1 wound cx : MRSA Medications Daptomycin 550 mg IV Q 48, # 7 Subjective: Patient hard of hearing but very cheerful. Still with some pain in the right lower extremity but much improved. Denies GI symptoms Objective: Vital Signs Temp Pulse Resp BP Pulse Ox 36.4 C 110 H 16 122/73 H 93 09/19/17 11:23 09/19/17 11:23 09/19/17 11:23 09/19/17 11:23 09/19/17 11:23 Microbiology 09/14/17 04:50 Blood Culture - Final Blood 09/14/17 04:45 Blood Culture - Final Blood Laboratory Results 09/19/17 06:35 09/19/17 06:35 09/18/17 09/19/17 09/20/17 05:59 05:59 05:59 Intake Total 820 1220 Output Total 730 1825 Balance 90 -605 - Physical Exam General Appearance: alert, no apparent distress Respiratory: other (Decreased breath sounds in the bases due to poor inspiratory a), No accessory muscle use Neck: supple Cardiac/Chest: regular rate, rhythm Extremities: swelling (Right lower extremity greater than left lower extremity) , erythema (Faint erythema over the anterior patricia and right lateral thigh. Medial thigh still indurated but no erythema) Peripheral Pulses: 1+: dorsalis-pedis (R), dorsalis-pedis (L) Abdomen: non-tender, soft Skin: other (Scattered scabbed below) Neuro/Psych: alert, normal mood/affect, oriented x 3 - Line/s RUE PICC Lines: No drainage, No erythema - Time Spent With Patient Time Spent with Patient: greater than 35 minutes Time Spent with Patient: Greater than 35 minutes spent on this patients care, greater than 50% of time spent counseling, educating, and coordinating care regarding the above mentioned plan. ICD10 Worksheet Patient Problems: Problems Problem Status Onset Cellulitis Acute Elevated troponin Acute Chronic Disease Management/Transitional Care Program Active Closed right acetabular fracture Acute Edema Acute Fall on same level from tripping as cause of accidental injury Acute Fracture of right olecranon process Acute Hyperkalemia Acute Osteoarthritis of right hip Acute Pelvic fracture Acute
--- NOTE | 2017-09-19 12:29 | WOCRNPDOC ---
LI Advanced Assessment Note - Skin Integrity Problem, Advanced Assess Right Leg Dressing Type: Allevyn Life Dressing Description: Intact Exudate Amount: Minimal Exudate Color: Reddish/Yellow Exudate Characteristic(s): Serosanguinous Integumentary Issue Intervention: Visualized Under Dressing Rubi Wound Tissue: Erythema, Swollen (+4, pitting edema), Shiny (taut) Rubi Wound Swelling: Moderate (edema throughout entire RLE) Wound Bed Constitution: Granulation Tissue (40%), Red/Campanilla - Non Granular Tissue (50%), Loose Slough (10%) Site Measurement - Head-to-Toe Length X Width X Depth (cm): 4.2wjh0jfp0.2cm Peripheral Edema Location & Description: +4, pitting Skin Integrity Problem Comment: Wound on RLE s/p pemphigus blister, now w/ open wound bed, 10% loose slough and 90% granulating/non-granulating tissues. Prior reports describe the wound as "weeping," though appears much less exudative during assessment, most likely r/t resolution of underlying cellulitis. +4 pitting edema throughout this extremity, but no distinct erythema and swelling periwound. Will have nursing apply dressing of Hydrofera Blue Ready and Allevyn , to help confer some antimicrobial benefit and manage exudate. metal handler Jill present and assisting. Wound care will continue to follow. Left Lower Leg Dressing Type: Allevyn Life Dressing Description: Intact Exudate Amount: Scant Exudate Color: Reddish/Yellow Exudate Characteristic(s): Serosanguinous Integumentary Issue Intervention: Visualized Under Dressing Rubi Wound Tissue: Erythema, Swollen (+3 pitting edema throughout LLE), Shiny ( taut) Rubi Wound Swelling: Moderate Wound Bed Color: Red Wound Bed Constitution: Red/Campanilla - Non Granular Tissue Site Measurement - Head-to-Toe Length X Width X Depth (cm): 1.7fkm4oqm5.1cm Skin Integrity Problem Comment: Previously weepy, blistered wound, now epithelializing along margins w/ 100% non-granulating tissue, no necrosis evident. Erythema and edema throughout this leg, though not immediately periwound. Continue w/ Allevyn dressing, and include Puracyn wound gel. Wound care will continue to follow.
--- NOTE | 2017-09-19 12:34 | PDIAF ---
- Diagnosis Diagnosis: MRSA bacteremia and RLE cellulitis Code Status: Full Code - Medication Management Discharge Medications: Medications to Continue on Transfer Allopurinol [Allopurinol 100 MG (*)] 100 mg PO BID 11/21/16 [Last Taken 21:00] Docusate Sodium [Colace 100 MG (*)] 200 mg PO BID 11/21/16 [Last Taken 09/10/17 21:00] Insulin Glargine [Lantus 100 UNITS/ML (*)] 32 units SC HS 11/21/16 [Last Taken 09/10/17] Lipase/Protease/Amylase [Shellie Rojas 16,800 Unit Cap] 1 each PO TIDMEAL [Last Taken 09/10/17 18:00] Magnesium Oxide [Magnesium Oxide 400 mg (*)] 400 mg PO DAILY 11/21/16 [Last Taken 09/11/17] Metoprolol Succinate Xr [Toprol Xl 25 mg (*)] 25 mg PO DAILY 11/21/16 [Last Taken 09/10/17] Multivitamins [Multivitamin (*)] 1 each PO DAILY 11/21/16 [Last Taken 09/10/17] Simvastatin 10 mg PO HS 11/21/16 [Last Taken 09/10/17] Ferrous Sulfate [Ferrous Sulf 325 MG (*)] 325 mg PO BID #0 tab 11/29/16 [Last Taken 09/10/17 21:00] Niacin [Niacin 500 mg (*)] 500 mg PO HS 08/21/17 [Last Taken 09/10/17] Omeprazole 20 mg PO DAILY 08/21/17 [Last Taken 09/10/17] Acetaminophen [Tylenol ES 500 mg (*)] 1,000 mg PO Q6 PRN 09/11/17 [Last Taken Unknown] Ascorbic Acid [Vitamin C 500 mg (*)] 250 mg PO BID 09/11/17 [Last Taken 21:00] Aspirin [Aspirin 81mg (*)] 81 mg PO DAILY 09/11/17 [Last Taken 09/10/17] Bumetanide [Bumex (*)] 1 mg PO DAILY 09/11/17 [Last Taken 09/10/17] Cetirizine [ZyrTEC 10 mg (*)] 10 mg PO DAILY 09/11/17 [Last Taken 09/10/17] Diclofenac Sodium 1% [Voltaren Gel (*)] 1 clarissa TP QID 09/11/17 [Last Taken Unknown] Doxycycline Hyclate [Vibramycin 100 MG (*)] 100 mg PO DAILY 09/11/17 [Last Taken 09/10/17] Montelukast Sodium [Singulair 10 mg (*)] 10 mg PO HS 09/11/17 [Last Taken ] Sildenafil Citrate [Revatio 20 MG (*)] 20 mg PO TID 09/11/17 [Last Taken 21:00] Triamcinolone 0.1% [Triamcinolone 0.1% Cream (*)] 1 clarissa TP TID PRN 09/11/17 [ Last Taken Unknown] diphenhydrAMINE [Benadryl 25 MG (*)] 25 mg PO HS 09/11/17 [Last Taken 09/10/17] predniSONE 20 mg PO DAILY 09/11/17 [Last Taken 09/10/17] traMADol [Ultram 50 mg (*)] 50 mg PO Q6HRS PRN 09/11/17 [Last Taken Unknown] Nursing Home Antibiotics: daptomycin 550mg IV q 48hours Nursing Home Antibiotic Stop Date: 10/10/17 Discharge Medications: Refer to the Discharge Home Medication list for PRN reason. PICC Care - Routine: Yes - Orders Isolation Type: Contact Isolation - Labs/Radiology CBC w/diff Date: 09/22/17 (Friday weekly) CMP Date: 09/22/17 CRP Date: 09/22/17 Call or Fax Lab and Imaging Results to: LTAC doctors or if goes to SNF : Mahogany Tom MD [phone] fax - Follow Up Care Current Providers and Referrals: Patient,NotPresent [Unknown] - As per Instructions
--- NOTE | 2017-09-19 15:10 | ASMTCMCOM ---
CM Note CM Note Notes: 09/19/2017 Case Management Note Multiple phone calls today with both sons, Ravi and Tong and daughter in law Adela regarding d/c plan. Pt was screened for Medicaid eligibility today. Faxed referrals to SNFs: all have declined patient d/t dapto cost. Family unable to provided 24/7 support for home d/c. Pt reports inability to pay for unskilled care. Dapto is $71 per infusion if done through home care. Family refuses this option. Faxed referrals to LTACS: [facility] ([facility]) accepted pt. Torsten Burton is point of contact and can be reached at [phone]. Torsten to confirm bed availability in the morning. If bed opens up pt will d/c on Friday morning to [facility]. Notified MD. Case Management is requesting an outpatient palliative care order at d/c. Family is facing multiple complex issues that need a guided discussion. Per daughter in law Adela pt has a developmentally delayed daughter, Aleisha, who is profoundly hard of hearing living with pt and . Aleisha is functioning at a cognitive level of approximately age 10 -12 per Adela. Pt suffers from dementia and is requiring regular checkins and nightly phone calls to ensure she takes her medications. Family does not have a plan if pt is not able to function independently in the home at d/c. Case Management d/c poc: To [facility] when bed is available. Case Management to follow. Date Signed: 09/19/2017 03:09 PM Electronically Signed By:Cassy Vera RN
[2017-09-19] MEDS: CEPACOL LOZENGE PO PRN (16:27)
[2017-09-19] MEDS: INSULIN GLARGINE 100 UNITS/ML UNIT SC SCH (21:41)
[2017-09-19] MEDS: diphenhydrAMINE 25 MG CAP PO SCH (21:43)
[2017-09-19] MEDS: NIACIN 500 MG TAB PO SCH (21:43)
[2017-09-19] MEDS: ACETAMINOPHEN 325 MG TAB PO PRN (21:44)
[2017-09-19] MEDS: MONTELUKAST SODIUM 10 MG TAB PO SCH (21:45)
[2017-09-20] MEDS: HEPARIN 5,000 UNIT/0.5 ML SYR SC SCH ×2 (03:12→11:07)
[2017-09-20] MEDS: DICLOFENAC SODIUM 1% 100 GM GEL TP SCH ×2 (06:21→11:07)
[2017-09-20 08:13] VITALS: RESP 18
[2017-09-20] MEDS: INSULIN LISPRO 100 UNIT/ML SC SCH ×2 (09:31→13:09)
[2017-09-20] MEDS: PROTEASE PO SCH ×2 (09:31→13:09)
[2017-09-20] MEDS: LIPASE PO SCH ×2 (09:31→13:09)
[2017-09-20] MEDS: AMYLASE PO SCH ×2 (09:31→13:09)
[2017-09-20] MEDS: DOXYCYCLINE HYCLATE 100 MG CAP/TAB PO SCH (09:32)
[2017-09-20] MEDS: DOCUSATE SODIUM 100 MG CAP PO SCH (09:32)
[2017-09-20] MEDS: ASCORBIC ACID 250 MG TAB PO SCH (09:32)
[2017-09-20] MEDS: ALLOPURINOL 100 MG TAB PO SCH (09:32)
[2017-09-20] MEDS: ASPIRIN 81 MG CHEWABLE TAB PO SCH (09:32)
[2017-09-20] MEDS: CETIRIZINE 10 MG TAB PO SCH (09:32)
[2017-09-20] MEDS: BUMETANIDE 1 MG TAB PO SCH (09:32)
[2017-09-20] MEDS: SILDENAFIL CITRATE 20 MG TAB PO SCH (09:33)
[2017-09-20] MEDS: FERROUS SULFATE 325 MG TAB PO SCH (09:33)
[2017-09-20] MEDS: METOPROLOL SUCCINATE XR 25 MG TAB PO SCH (09:33)
[2017-09-20] MEDS: MAGNESIUM OXIDE 400 MG TAB PO SCH (09:33)
[2017-09-20] MEDS: predniSONE 20 MG TAB PO SCH (09:33)
[2017-09-20] MEDS: SENNOSIDES/DOCUSATE SODIUM TAB PO SCH (09:33)
[2017-09-20] MEDS: MULTIVITAMINS 1 EACH TAB PO SCH (09:33)
[2017-09-20] MEDS: PANTOPRAZOLE SODIUM 40 MG TAB PO SCH (09:33)
[2017-09-20 12:24] VITALS: BP 122/72; PULSE 112; TEMP 98.4; O2SAT 94
--- NOTE | 2017-09-20 12:25 | PDIAF ---
- Diagnosis Diagnosis: MRSA bacteremia and RLE cellulitis Code Status: Full Code - Medication Management Discharge Medications: Medications to Continue on Transfer Allopurinol [Allopurinol 100 MG (*)] 100 mg PO BID 11/21/16 [Last Taken 21:00] Insulin Glargine [Lantus 100 UNITS/ML (*)] 32 units SC HS 11/21/16 [Last Taken 09/10/17] Lipase/Protease/Amylase [Shellie Rojas 16,800 Unit Cap] 1 each PO TIDMEAL [Last Taken 09/10/17 18:00] Magnesium Oxide [Magnesium Oxide 400 mg (*)] 400 mg PO DAILY 11/21/16 [Last Taken 09/11/17] Metoprolol Succinate Xr [Toprol Xl 25 mg (*)] 25 mg PO DAILY 11/21/16 [Last Taken 09/10/17] Multivitamins [Multivitamin (*)] 1 each PO DAILY 11/21/16 [Last Taken 09/10/17] Ferrous Sulfate [Ferrous Sulf 325 MG (*)] 325 mg PO BID #0 tab 11/29/16 [Last Taken 09/10/17 21:00] Niacin [Niacin 500 mg (*)] 500 mg PO HS 08/21/17 [Last Taken 09/10/17] Omeprazole 20 mg PO DAILY 08/21/17 [Last Taken 09/10/17] Acetaminophen [Tylenol ES 500 mg (*)] 1,000 mg PO Q6 PRN 09/11/17 [Last Taken Unknown] Ascorbic Acid [Vitamin C 500 mg (*)] 250 mg PO BID 09/11/17 [Last Taken 21:00] Aspirin [Aspirin 81mg (*)] 81 mg PO DAILY 09/11/17 [Last Taken 09/10/17] Bumetanide [Bumex (*)] 1 mg PO DAILY 09/11/17 [Last Taken 09/10/17] Cetirizine [ZyrTEC 10 mg (*)] 10 mg PO DAILY 09/11/17 [Last Taken 09/10/17] Diclofenac Sodium 1% [Voltaren Gel (*)] 1 clarissa TP QID 09/11/17 [Last Taken Unknown] Doxycycline Hyclate [Vibramycin 100 MG (*)] 100 mg PO DAILY 09/11/17 [Last Taken 09/10/17] Montelukast Sodium [Singulair 10 mg (*)] 10 mg PO HS 09/11/17 [Last Taken ] Triamcinolone 0.1% [Triamcinolone 0.1% Cream (*)] 1 clarissa TP TID PRN 09/11/17 [ Last Taken Unknown] diphenhydrAMINE [Benadryl 25 MG (*)] 25 mg PO HS 09/11/17 [Last Taken 09/10/17] predniSONE 20 mg PO DAILY 09/11/17 [Last Taken 09/10/17] traMADol [Ultram 50 mg (*)] 50 mg PO Q6HRS PRN 09/11/17 [Last Taken Unknown] Acetaminophen [Tylenol 325mg (*)] 650 mg PO Q4HRS PRN tab 09/20/17 [Last Taken Unknown] Alteplase [Cathflo Activase 2 mg (*)] 2 mg IVP PRN PRN vial 09/20/17 [Last Taken Unknown] Bumetanide [Bumex (*)] 1 mg PO DAILY tab 09/20/17 [Last Taken Unknown] DAPTOmycin [Cubicin] 550 mg IV Q48H ml 09/20/17 [Last Taken Unknown] Docusate Sodium [Colace 100 MG (*)] 200 mg PO BID cap 09/20/17 [Last Taken Unknown] Heparin [Heparin SC 5000 unit/0.5 ml (*)] 5,000 unit SC Q8H syr 09/20/17 [Last Taken Unknown] Insulin Lispro [HumaLOG LISPRO] 0 unit SC TIDMEAL unit 09/20/17 [Last Taken Unknown] Polyethylene Glycol 3350 [Miralax 17 gm (*)] 17 gm PO DAILY PRN pkt 09/20/17 [ Last Taken Unknown] Sildenafil Citrate [Revatio 20 MG (*)] 20 mg PO TID tab 09/20/17 [Last Taken Unknown] [facility] Antibiotics: daptomycin 550mg IV q 48hours [facility] Antibiotic Stop Date: 10/10/17 Discharge Medications: Refer to the Discharge Home Medication list for PRN reason. PICC Care - Routine: Yes - Orders Services needed: Master Tank House Supervisor, Physical Therapy, Occupational Therapy Isolation Type: Contact Isolation Diet Recommendation: no restrictions on diet, ADA 1800 consistent carb ( Transfer to [facility]) - Labs/Radiology CBC w/diff Date: 09/22/17 (Friday weekly) CMP Date: 09/22/17 CRP Date: 09/22/17 Call or Fax Lab and Imaging Results to: LTAC doctors : Mahogany Tom MD [phone] fax - Follow Up Care Current Providers and Referrals: Patient,NotPresent [Unknown] - As per Instructions
--- NOTE | 2017-09-20 12:53 | GDS ---
[f rep st] DISCHARGE SUMMARY ADMISSION DIAGNOSIS: Cellulitis. OTHER DIAGNOSES: Include status post hip replacement, type 2 diabetes, pulmonary hypertension, chron ic obstructive lung disease, coronary atherosclerosis, bullous pemphigoid. HOSPITAL COURSE: The patient was admitted with cellulitis. He has had bullous pemphigoid, which has responded nicely to prednisone. He has recently been placed on doxycycline as prednisone dosage has been gradually weaned down to 20 mg daily. He had previous infections of the ulcers in his legs rel ated to the bullous pemphigoid. He again developed an infection. Culture was obtained, and the bloo d cultures were initially positive for MRSA, as were the wound cultures. The MRSA was sensitive to c lindamycin, vancomycin, and daptomycin from the blood, and a similar sensitivity pattern was found in the wound. They also checked for linezolid, and it was also sensitive to linezolid. He was seen in consultation by ID, who felt that daptomycin was the best drug for treatment. He was placed on dapt omycin 550 mg every 48 hours. He was gradually improving. His leg swelling was improved. His blood cultures returned negative. There was concern because he does have status post hip replacement with prosthetic hardware. We were unable to place him in a [facility] facility. He has very high n eeds. He is being transferred to an LTAC for further treatment for another 4 weeks of antibiotics. Based on recommendations from Infectious Disease, he should continue on the daptomycin until 10/11/19. He is on 550 mg IV every 48 hours. DISCHARGE MEDICATIONS: Metoprolol succinate 25 mg daily; lipase/protease 16,800 units, 1 p.o. t.i.d. with meals; multivitamins 1 daily; magnesium oxide 400 mg p.o. daily; insulin glargine; Lantus 100 u nits/mL 32 units subcu h.s.; allopurinol 100 mg b.i.d.; ferrous sulfate 325 mg b.i.d.; omeprazole 20 mg daily; niacin 500 mg h.s.; diphenhydramine 25 mg h.s.; Singulair 10 mg h.s.; Zyrtec 10 mg daily; a scorbic acid 500 mg daily; triamcinolone cream as needed for itching; diclofenac, to apply q.i.d. as needed for joint pain; Tylenol p.r.n.; tramadol 50 mg h.s. p.r.n. moderate pain; Bumex 1 mg daily; as pirin 81 mg daily; prednisone 20 mg daily, which he is taking for his bullous pemphigoid; doxycycline 100 mg daily, which he is also taking for his bullous pemphigoid. /[id number]/MODL
--- NOTE | 2017-09-20 15:08 | ASDISCHSUM ---
Discharge Information Plan Status:Acute Transfer Medically Cleared to Leave:09/20/2017 Discharge Date:09/20/2017 D/C Disposition:MICHELLE ARCE D/C Disposition:[facility] Projected Discharge Date:09/15/2017 11:00 AM Transportation at D/C:Family Discharge Delay Reason: Follow-Up Date:09/15/2017 11:00 AM Discharge Slot: Final Diagnosis: Placement Information Referral Type:*Home Health Care Services Referral ID:[id number] Provider Name: Address 1: Phone Number: Address 2: Fax Number: City: Selection Factors: State: Referral Type:Home Infusion Referral ID:[id number] Provider Name: Address 1: Phone Number: Address 2: Fax Number: City: Selection Factors: State: Referral Type:*[facility]/SNF Referral ID:[id number] Provider Name: Address 1: Phone Number: Address 2: Fax Number: City: Selection Factors: State: Referral Type:Senior Care Acute [facility] Referral ID:[id number] Provider Name:[facility] Address 1:[address] Address 2: City:[place] Selection Factors: State:[place] Patient Contact Information Contact Name:MARCOS Relationship:Son Address: City:[place] Alternate Phone: [facility] Code:[place] Email: Financial Information Financial Class:Medicare Primary Plan Desc:MEDICARE INPATIENT Primary Plan Number:[id number] Secondary Plan Desc: OUT OF STATE [facility] Secondary Plan Number:[id number] Assessment Information [facility] CM Progress Note CM Note CM Note Notes: Chart reviewed. Patient normally lives independent with . He is here with infection and s/p fall. Per PT they are recommending HHC. Dscharge date is unclear at this time. Will place referral in allscripts to [facility]. CM to follow. Date Signed: 09/12/2017 02:17 PM Electronically Signed By:Polly Morrison RN CAGE Questionnaire CAGE Do you feel you ought to Answers: Yes cut down on your drinking or drug use? Do people annoy you by Answers: Yes criticizing your drinking or drug use? 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 Additional Comments Pt has some confusion. 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 Date Signed: 09/15/2017 04:24 PM Electronically Signed By:Cassy Vera RN [facility] CM Progress Note CM Note CM Note Notes: 09/15/2017 Case Management Note Met w/pt to complete CAGE assessment. Pt has son Sotero [phone] (cell) [phone] (home) and BELGICA Wolfecy at [phone]. Earlier in the day case management faxed referrals to [facility] [employer] and [id number] for pricing on home antibiotic needs. Awaiting response. Pt accepted by [facility] for home RN and PT. Pt has refused PT today. Pt reports inability to stand d/t weakness. Pt has some confusion as we discussed d/c plans. Case Management faxed referral to [facility]. Pt has had 4 prior stays at [facility] and does not want to return to [facility]. Case Management d/c poc: to [facility] rehab pending acceptance vs home with [facility] and home infusion. Case Management to follow. Date Signed: 09/15/2017 04:29 PM Electronically Signed By:Cassy Vera RN [facility] Progress Note CM Note CM Note Notes: CM met w/ pt for dispo planning. CM spoke w/ Michael and Miriam regarding cost of home infusion. Pt reports that he is unable to afford the cost. CM communicated w/ the home infusion companies that he will not be using them. Pt is agreeable to going to SNF. Pt would like CM to speak to his daughter in law, Adela. CM spoke w/ Adela and she reports that he would benefit greatly from SNF. Adela would like CM to make a referral to [facility]. CM sent referral to [facility]. CM completed non triggering PASRR. CM to follow. Plan: SNF Date Signed: 09/16/2017 03:23 PM Electronically Signed By:LATESHA Mnoroe [facility] CM Progress Note CM Note CM Note Notes: CM spoke w/ ODELL Hogan, Dr. Sosa and Dr. Mccurdy regarding d/c POC. [facility] unable to accept pt if he is on the iv dapo, due to the cost. Dr. Sosa put in an order for [facility] inpatient rehab. If pt is unable to get into [facility] inpatient rehab the plan is for pt to remain in the hospital. Dr. Sosa does not feel that it is a safe for pt to go home at this moment in time. CM spoke w/ Aleyda Medrano at [facility] inpatient rehab. Aledya will see if pt will qualify. ISRAEL communicated this to pts daughter in law, Adela. CM to follow. Plan: Inpatient rehab; pending acceptance Date Signed: 09/17/2017 03:00 PM Electronically Signed By:LATESHA Monroe [facility] CM Progress Note CM Note CM Note Notes: 09/19/2017 Case Management Note Multiple phone calls today with both sons, Ravi and Tong and daughter in law Adela regarding d/c plan. Pt was screened for Medicaid eligibility today. Faxed referrals to SNFs: all have declined patient d/t dapto cost. Family unable to provided 20/01 support for home d/c. Pt reports inability to pay for unskilled care. Dapto is $71 per infusion if done through home care. Family refuses this option. Faxed referrals to LTACS: [facility] ([facility]) accepted pt. Torsten Burton is point of contact and can be reached at [phone]. Torsten to confirm bed availability in the morning. If bed opens up pt will d/c on Friday morning to [facility]. Notified MD. Case Management is requesting an outpatient palliative care order at d/c. Family is facing multiple complex issues that need a guided discussion. Per daughter in law Adela pt has a developmentally delayed daughter, Aleisha, who is profoundly hard of hearing living with pt and . Aleisha is functioning at a cognitive level of approximately age 10 -12 per Adela. Pt suffers from dementia and is requiring regular checkins and nightly phone calls to ensure she takes her medications. Family does not have a plan if pt is not able to function independently in the home at d/c. Case Management d/c poc: To [facility] when bed is available. Case Management to follow. Date Signed: 09/19/2017 03:09 PM Electronically Signed By:Cassy Vera RN Case Management Discharge Plan Note Case Management Discharge Discharge Order Complete? Answers: Yes Patient to Obtain Answers: Other Notes: [facility] Transportation Arranged Answers: Family/Friends Faxed Final Orders Answers: Yes Agency/Facility Transfer Answers: Yes Report Printed & Faxed to Receiving Agency Family Notified Answers: Yes Notes: via phone Discharge Comments Notes: 09/20/2017 Case Management Note Discussed option of d/c to [facility] vs [facility]. Family [facility] d/t higher level of care provided. Informed family medicare will not cover wheelchair transport. Family refuses to pay for private transport. Dr. Quach approved family transport to [facility] from [facility]. Notified Torsten Burton of plan. Son Jordan to transport. Faxed final orders and provided hard copies to family as requested. ODELL called report. Dr. Quach called report. Date Signed: 09/20/2017 03:06 PM Electronically Signed By:Cassy Vera RN Intervention Information
--- NOTE | 2017-09-24 12:13 | PQFORM ---
PHYSICIAN QUERY FORM Needs Your Response This query form is being sent to you to assure this patient record is coded properly. Please respond to the question below: JOB FOREMAN QUESTION: Dr Hendricks Sepsis due to cellulitis was documented through out the progress notes but it was not documented in the Discharge Summary. Did this patient have Sepsis? _X__ Yes ___ No ___ Other (Please Specify ) ___ Unable to determine Thank You Linda WELSH [employer] INSTRUCTIONS FOR RESPONSE: Answer question by clicking on the "Edit Document" button. Move cursor to area below the stars. When complete, hit "Save." Click on the "Sign" button, then click "Sign" again. Type in your PIN and hit "Enter." MTDD
== END 2017-09-20 15:40 | disposition short-term general hospital (02) | DRG 872 ==
LOC: EDUNIT# → F2W 16:45 → UNDODISIN 09-20 13:40
PROVIDERS: ADMIT Internal Medicine; ATTEND Internal Medicine
PROC: 02HV33Z Insertion of Infusion Device into Superior Vena Cava, Percutaneous Approach (ICD-10-PCS; principal; 2017-09-17)
DX: A41.02 Sepsis due to Methicillin resistant Staphylococcus aureus (principal); L03.115 Cellulitis of right lower limb; L12.1 Cicatricial pemphigoid; E11.22 Type 2 diabetes mellitus with diabetic chronic kidney disease; N18.2 Chronic kidney disease, stage 2 (mild); J02.9 Acute pharyngitis, unspecified; D69.6 Thrombocytopenia, unspecified; I25.10 Atherosclerotic heart disease of native coronary artery without angina pectoris; I48.91 Unspecified atrial fibrillation; I48.92 Unspecified atrial flutter; K21.9 Gastro-esophageal reflux disease without esophagitis; J44.9 Chronic obstructive pulmonary disease, unspecified; G47.30 Sleep apnea, unspecified; I27.20 Pulmonary hypertension, unspecified; Z95.2 Presence of prosthetic heart valve; Z96.643 Presence of artificial hip joint, bilateral; Z95.0 Presence of cardiac pacemaker
CPT/HCPCS: 96374; 97116-GP; 97161-GP; 97165-GO; 97530-GO; 97530-GP; 97535-GO; C1751; G8978-GP-CI; G8979-GP-CI; G8987-GO-CJ; G8988-GO-CI; J0690; J0878; J1644; J1650; J1815; J7512

== ENCOUNTER 2018-05-21 20:24 | Inpatient (IN) | payer OTHER, BC ==
--- NOTE | 2018-05-21 20:27 | EDPHY ---
HPI/HX/ROS/PE/MDM Narrative: CHIEF COMPLAINT: AMS, possible sepsis HISTORY OF PRESENT ILLNESS: The patient is an 87 y/o male with a history of type 2 Diabetes, chronic kidney disease, pulmonary hypertension, COPD, CHF, CAD, cellulitis, pacemaker, and valve replacement arriving via EMS for altered mental status and possible sepsis. On 05/19, 2 days ago, he was started on Levaquin for a left-sided pneumonia. Per EMS, the patient's care home called EMS today after they noticed that the patient had low O2sats. The patient is supposed to be on up to 5L supplemental oxygen which he has been on for months. This morning the patient was blue around his lips and would not wear his oxygen mask. For the past 2 weeks the patient has only been grunting, with minimal verbal conversations.. While en route, EMS noted the following vital signs: BP 140/90, HR 120. Upon arrival to the emergency department the patient grunted "no" to being in any pain or having shortness of breath. No documented fever, chills, no reports of chest pain, vomiting, diarrhea, urinary complaints, headache, lightheadedness. REVIEW OF SYSTEMS: Unable to obtain secondary to patient's mental status. PAST MEDICAL HISTORY: Type 2 Diabetes, chronic kidney disease, pulmonary hypertension, COPD, CHF, CAD, bullous pemphigoid, cholecystectomy, cellulitis, right hip replacement, bilateral knee replacement, pacemaker, mitral valve replacement SOCIAL HISTORY: Resides at [facility], single, retired. We were initially informed from [facility] [place] that the patient is a full COR, however, son presented with most paperwork demonstrating that the patient is do not resuscitate, do not intubate, selective interventions only. VITAL SIGNS: Reviewed by me GENERAL: Somnolent. Answers a few simple questions with one-word answers. HEENT: Head covered with squamous cell carcinoma with multiple areas where he lost the skin so his skull is visible. Eyes: No icterus, bilateral conjunctival injection. Mouth: moist mucous membranes. No erythema or lesions. Neck: supple with no adenopathy. LUNGS: Gurgling respirations. Rhonchi with rales, left worse than right for the rales, diminished breath sounds on the right anterior chest. CARDIAC: Mild tachycardia, no rubs, murmurs or gallops. ABDOMEN: Midline abdominal wall hernia with mild tenderness to palpation. Soft, nontender, bowel sounds normal. BACK: No CVA tenderness. Healing the wound on the right buttock. : Extensive smegma present under the foreskin. EXTREMITIES: Left upper extremity diffusely erythematic with pitting edema and multiple areas of skin breakdown. No edema in his lower extremities. No trauma. NEURO: Can answer simple questions, grossly nonfocal. SKIN: Warm and dry, no rash. PSYCHIATRIC: No agitation Portions of this note were transcribed by a director biomedical engineering. I personally performed a history, physical exam, medical decision making, and confirmed accuracy of information the transcribed note. ED Course: The patient is an 87 y/o male with a history of type 2 Diabetes, chronic kidney disease, pulmonary hypertension, COPD, CHF, CAD, cellulitis, pacemaker, and valve replacement arriving via EMS for altered mental status and possible sepsis. The patient had low O2Sats and was blue around his mouth, so the care home called EMS. The patient has O2Sats of 82% while on room air, a temperature of 37.2 degrees, and mild tachycardia with a rate of 100. On exam he has gurgling respirations. He is rhonchus with rales, left worse than right for the rales, diminished breath sounds on the right anterior chest. His left upper extremity is diffusely erythematic with pitting edema and multiple areas of skin breakdown. He does have a midline abdominal wall hernia. His head is covered with squamous cell carcinoma with multiple areas where he lost the skin so his skull is visible. The patient can only answer basic questions. Labs and chest x-ray ordered. 2111: 12-LEAD EKG: Please see the full report in [employer] [facility]. My interpretation: Ventricular-paced complexes, prolonged TX interval, low voltage in the extremity leads, nonspecific T abnormalities in the lateral leads 2113: Patient's POC troponin is 0.30, BUN is 104, and creatinine is 2.8 (his baseline is around 2). Patient's lactate is normal. 2139: I reviewed patient's chest x-ray. Technically difficult chest x-ray with poor inspiration. Cardiomegaly and increased pulmonary markings. Given the patient patient's elevated troponin, elevated BNP, and edema on examination as well as hypoxemia, I feel patient is most likely in congestive heart failure. No fever documented here, no white count, patient has been on antibiotics. Less likely pneumonia. 1mg IV Bumex administered. 2210: Reassessed patient and discussed laboratory and imaging findings. I have also discussed the plan for admission with the patient's children, which the patient is comfortable with. 2219: I consulted with Dr. Odilia Sosa from Dr. Hendricks's office; they agree to admit this patient. Family has plans to consult with hospice in the morning with understanding that the patient is currently failing in multiple organs and hospice is the most likely best treatment at this point. MDM: Differential diagnoses for the patient's symptom complex was considered including but not limited to multi organ failure, acute kidney failure on chronic kidney failure, congestive heart failure, coronary artery disease, acute coronary syndrome, pneumonia, septicemia, electrolyte abnormalities, urinary tract infection. - Data Points Imaging Results: Imaging Impressions Chest X-Ray 05/21/18 20:46 Impression: Low lung volumes with patchy infiltrates in the mid and lower lungs bilaterally, more pronounced on the left, compatible with pneumonia. Imaging: I viewed and interpreted images myself Laboratory Results: Laboratory Results 05/21/18 20:40 05/21/18 20:40 05/21/18 05/21/18 05/21/18 21:32 20:51 20:40 WBC RBC Hgb Hct MCV MCH MCHC RDW Plt Count MPV Neut % (Auto) Lymph % (Auto) [place] % (Auto) Eos % (Auto) Baso % (Auto) Nucleat RBC Rel Count Absolute Neuts (auto) Absolute Lymphs (auto) Absolute Monos (auto) Absolute Eos (auto) Absolute Basos (auto) Absolute Nucleated RBC Immature Gran % Immature Gran # RBC/WBC/PLT Morphology Platelet Estimate Polychromasia Hypochromasia Basophilic Stippling Oval Macrocytes Smear Review By PT INR APTT VBG Lactic Acid 1.4 mmol/L mmol/L (0.7-2.1) Sodium Potassium Chloride Carbon Dioxide Anion Gap BUN Creatinine Estimated GFR Glucose Calcium Total Bilirubin POC Troponin I 0.30 ng/mL H ng/mL (0.00-0.08) Troponin I NT-Pro-B Natriuret Pep 17015 pg/mL H pg/mL (0-450) 05/21/18 05/21/18 05/21/18 20:40 20:40 20:40 WBC RBC Hgb Hct MCV MCH MCHC RDW Plt Count MPV Neut % (Auto) Lymph % (Auto) Assumption % (Auto) Eos % (Auto) Baso % (Auto) Nucleat RBC Rel Count Absolute Neuts (auto) Absolute Lymphs (auto) Absolute Monos (auto) Absolute Eos (auto) Absolute Basos (auto) Absolute Nucleated RBC Immature Gran % Immature Gran # RBC/WBC/PLT Morphology Platelet Estimate Polychromasia Hypochromasia Basophilic Stippling Oval Macrocytes Smear Review By PT 13.6 SEC SEC (12.0-15.0) INR 1.02 (0.83-1.16) APTT 24.1 SEC SEC (23.0-38.0) VBG Lactic Acid Sodium 149 mEq/L H mEq/L (135-145) Potassium 5.5 mEq/L H mEq/L (3.3-5.0) Chloride 106 mEq/L mEq/L (97-110) Carbon Dioxide 38 mEq/l H mEq/l (22-31) Anion Gap 5 mEq/L L mEq/L (6-14) BUN 104 mg/dL H* mg/dL (7-23) Creatinine 2.8 mg/dL H mg/dL (0.7-1.3) Estimated GFR 21 Glucose 102 mg/dL H mg/dL (70-100) Calcium 9.5 mg/dL mg/dL (8.5-10.4) Total Bilirubin 0.3 mg/dL mg/dL (0.1-1.4) POC Troponin I Troponin I 0.321 ng/mL H ng/mL (0.000-0.034) NT-Pro-B Natriuret Pep 05/21/18 20:40 WBC 9.87 10^3/uL H 10^3/uL (3.80-9.50) RBC 2.31 10^6/uL L 10^6/uL (4.40-6.38) Hgb 8.5 g/dL L g/dL (13.7-17.5) Hct 28.7 % L % (40.0-51.0) MCV 124.2 fL H fL (81.5-99.8) MCH 36.8 pg H pg (27.9-34.1) MCHC 29.6 g/dL L g/dL (32.4-36.7) RDW 18.6 % H % (11.5-15.2) Plt Count 117 10^3/uL L 10^3/uL (150-400) MPV 10.4 fL fL (8.7-11.7) Neut % (Auto) 89.6 % H % (39.3-74.2) Lymph % (Auto) 1.7 % L % (15.0-45.0) Assumption % (Auto) 7.8 % % (4.5-13.0) Eos % (Auto) 0.0 % L % (0.6-7.6) Baso % (Auto) 0.1 % L % (0.3-1.7) Nucleat RBC Rel Count 1.2 % H % (0.0-0.2) Absolute Neuts (auto) 8.84 10^3/uL H 10^3/uL (1.70-6.50) Absolute Lymphs (auto) 0.17 10^3/uL L 10^3/uL (1.00-3.00) Absolute Monos (auto) 0.77 10^3/uL 10^3/uL (0.30-0.80) Absolute Eos (auto) 0.00 10^3/uL L 10^3/uL (0.03-0.40) Absolute Basos (auto) 0.01 10^3/uL L 10^3/uL (0.02-0.10) Absolute Nucleated RBC 0.12 10^3/uL H 10^3/uL (0-0.01) Immature Gran % 0.8 % % (0.0-1.1) Immature Gran # 0.08 10^3/uL 10^3/uL (0.00-0.10) RBC/WBC/PLT Morphology TNP Platelet Estimate DECREASED L (ADEQ) Polychromasia 1+ H Hypochromasia 1+ H Basophilic Stippling 1+ H Oval Macrocytes 3+ H Smear Review By Pending PT INR APTT VBG Lactic Acid Sodium Potassium Chloride Carbon Dioxide Anion Gap BUN Creatinine Estimated GFR Glucose Calcium Total Bilirubin POC Troponin I Troponin I NT-Pro-B Natriuret Pep Medications Given: Discontinued Medications Bumetanide (Bumex) 1 mg IVP EDNOW ONE Stop: 05/21/18 22:32 Last Admin: 11/22/18 23:14 Dose: 1 mg Furosemide (Lasix Injection) 40 mg IVP EDNOW ONE Stop: 05/21/18 22:07 Last Admin: 05/21/18 23:02 Dose: Not Given Point of Care Test Results: Chemistry 05/21/18 20:51 POC Troponin I 0.30 ng/mL H ng/mL (0.00-0.08) General Time Seen by Provider: 05/21/18 20:28 Initial Vital Signs: Initial Vital Signs Temperature (C) 37.2 C 05/21/18 20:25 Heart Rate 90 05/21/18 20:25 Respiratory Rate 22 H 05/21/18 20:25 Blood Pressure 123/63 H 05/21/18 20:25 O2 Sat (%) 99 05/21/18 20:25 O2 Delivery Mode Nasal Cannula O2 (L/minute) 4 Allergies/Adverse Reactions: No Known Allergies Allergy (Verified 10/08/16 16:15) Home Medications: Medication Instructions Recorded Allopurinol [Allopurinol 100 MG 100 mg PO BID 11/21/16 (*)] Insulin Glargine [Lantus 100 32 units SC HS 11/21/16 UNITS/ML] Metoprolol Succinate Xr [Toprol Xl 25 mg PO DAILY 11/21/16 25 mg (*)] Multivitamins [Multivitamin (*)] 1 each PO DAILY 11/21/16 Omeprazole 20 mg PO DAILY 08/21/17 Acetaminophen [Tylenol ES 500 mg 1,000 mg PO Q6 PRN 09/11/17 (*)] Ascorbic Acid [Vitamin C 500 mg 250 mg PO BID 09/11/17 (*)] Bumetanide [Bumex (*)] 1 mg PO DAILY 09/11/17 Cetirizine [ZyrTEC 10 mg (*)] 10 mg PO DAILY 09/11/17 Montelukast Sodium [Singulair 10 10 mg PO HS 09/11/17 mg (*)] Triamcinolone 0.1% [Triamcinolone 1 clarissa TP TID PRN 09/11/17 0.1% Cream (*)] diphenhydrAMINE [Benadryl 25 MG 25 mg PO HS 09/11/17 (*)] predniSONE 20 mg PO DAILY 09/11/17 traMADol [Ultram 50 mg (*)] 50 mg PO Q6HRS PRN 09/11/17 Bumetanide [Bumex (*)] 1 mg PO DAILY tab 09/20/17 Docusate Sodium [Colace 100 MG (*)] 200 mg PO BID cap 09/20/17 Insulin Lispro [HumaLOG LISPRO] 0 unit SC TIDMEAL unit 09/20/17 Polyethylene Glycol 3350 [Miralax 17 gm PO DAILY PRN pkt 09/20/17 17 gm (*)] Levoquin 05/21/18 [place] 5/325 (*) 05/21/18 Departure - Departure Disposition: [facility] Inpatient Acute Clinical Impression: Hypoxia CAD (coronary artery disease) Qualifiers: Coronary Disease-Associated Artery/Lesion type: unspecified vessel or lesion type [place] vs. transplanted heart: [place] heart Associated angina: with unspecified angina Qualified Code(s): I25.119 - Atherosclerotic heart disease of [place] coronary artery with unspecified angina pectoris Chronic kidney disease Qualifiers: Chronic kidney disease stage: unspecified stage Qualified Code(s): N18.9 - Chronic kidney disease, unspecified Pneumonia Qualifiers: Pneumonia type: due to unspecified organism Laterality: bilateral Lung location : lower lobe of lung Qualified Code(s): J18.1 - Lobar pneumonia, unspecified organism Condition: Serious Report Scribed for: Sheri Heredia Report Scribed by: Silvana Alcantar Date of Report: 05/21/18 Time of Report: 20:28
[2018-05-21 20:56] LABS: PLATELET COUNT 117 10^3/uL (150-400)
[2018-05-21 21:11] LABS: INR 1.02 (0.83-1.16); PROTIME(PATIENT) 13.6 SEC (12.0-15.0)
[2018-05-21] MEDS ORDERED: FUROSEMIDE 40 MG/4 ML VIAL IVP ONE (22:06)
[2018-05-21] MEDS ORDERED: BUMETANIDE 1 MG/4 ML VIAL IVP ONE (22:31)
[2018-05-21] MEDS ORDERED: LIDOCAINE 2% JELLY 20 ML (UROJECT) ONE (22:32)
[2018-05-22] MEDS ORDERED: ACETAMINOPHEN 325 MG TAB PO PRN (00:12)
[2018-05-22] MEDS ORDERED: ONDANSETRON DISINTEGRATING 4 MG TAB PO PRN (00:12)
[2018-05-22] MEDS ORDERED: ONDANSETRON 4 MG/2 ML VIAL IVP PRN (00:12)
--- NOTE | 2018-05-22 00:27 | SOAPPROG ---
SOAP Progress Note Assessment/Plan: Assessment: Plan: 05/22/18 00:58 Pneumonia: placed on levaquin 05/19/18 for LLL pneumonia and due for dose. Had some vomiting earlier today so will give dose IV. Minimally elevated WBC, afebrile, hypoxic. Decreased mental status: suspect this is largely related to [place], as he hasn't tolerated narcotics well in the past. Dose has been decreased in the last couple of days, but he is still not himself. Infection and dehydration likely contributing as well. Dehydration: per his son, he hasn't been drinking much at all. Na, K, BUN, Cr all elevated consistent with dehydration. Will hydrate. CHF: markedly elevated BNP. Was given lasix, bumex in ED, but doesn't actually appear fluid overloaded. Elevated troponin: suspect this is stress related Chronic renal insufficiency: Cr elevated above normal, likely dehydration Anemia: chronic. Level of severity not known Diabetes mellitus: on insulin Bullous pemphigoid: on prednisone Cutaneous candidiasis: has been on lotrisone, so will continue GERD: on pantoprazole Hypertension: on metoprolol Seizure: had 2-3 seizures during recent hospitalization at [facility]. On Keppra, so will continue Buttock wound: will ask wound care to see DVT Prophylaxis: kenny Dispo: admit to observation. Per discussion with sons, hopefully he will improve relatively quickly and return to [place]. If he doesn't, they are looking at initiating Hospice Care at [place]. 05/22/18 01:14 05/22/18 01:25 05/22/18 01:33 05/22/18 01:37 Subjective: 87 yo male with multiple medical problems was brought to ED [facility] from [place] due to hypoxia and refusal to wear oxygen. Two weeks ago, he was transferred from [facility] to [place] for long-term care. Per his son, he was doing relatively well at that time. He was subsequently given [place] for pain and has been going downhill since then. Mental status has been diminished. He had been getting 3-4 tablets per day, but that was decreased to one daily a couple of days ago, but his mental status has remained poor. A couple of days ago, he was started on levaquin 750mg q48 for possible L lung pneumonia. He was due for a dose tonight around 7 pm but didn't receive it prior to coming to ED. In the ED, he is normotensive. O2 sat is 99% on 4L. EKG shows a paced rhythm. CXR consistent with LLL pneumonia. WBC is mildly elevated with neutrophilia. Hgb 8.5, hct 28.7, plts 117. Na 149, K 5.5, BUN 104, Cr 2.8, lactic acid 1.4, BNP 26592. Initial troponin 0.321, f/u troponin 0.3. His sons are here with him tonight and are requesting intervention such as antibiotics, fluids, feeding tube if needed for 1 week only, non-invasive PAP, but no CPR, intubation, ICU care. He has been in and out of the hospital, rehab care centers, and detention care centers since 09/14, and hasn't been able to return home due to high care needs. Objective: Vital Signs Temp Pulse Resp BP Pulse Ox 37 C 86 19 123/74 H 99 05/21/18 23:51 05/21/18 23:51 05/21/18 23:51 05/21/18 23:51 05/21/18 23:51 05/20/18 05/21/18 05/22/18 05:59 05:59 05:59 Output Total 150 Balance -150 PT 13.6 SEC (12.0-15.0) 05/21/18 20:40 INR 1.02 (0.83-1.16) 05/21/18 20:40 General: chronically ill-appearing, somnolent, awakens briefly, not answering questions HEENT: scalp with multiple SCC lesions, eyelids with mild erythema, oral cavity with poor dentition Neck: no masses, adenopathy Lungs: per ED exam, bilateral rales, worse on L Cardiovascular: mildly tachycardic, regular, no murmur Abdomen: +bowel sounds, soft, NT. Midline hernia : umanzor catheter in place Extremities: LUE edematous, wrapped in compression bandage which is moist. BLE with mild edema Skin: R cheek with darkened area that comes and goes per son. Erythematous rash L neck, L axilla, over sacrum. Wound R buttock. Skin dry, flaking. Neurologic: no focal abnormalities noted other than decreased mental status. Verbalizes as times but not understandable Psychiatric: no agitation ICD10 Worksheet Patient Problems: Problems Problem Status Onset CAD (coronary artery disease) Acute Chronic kidney disease Acute Hypoxia Acute Pneumonia Acute Chronic Disease Management/Transitional Care Program Active Cellulitis Acute Closed right acetabular fracture Acute Edema Acute Elevated troponin Acute Fall on same level from tripping as cause of accidental injury Acute Fracture of right olecranon process Acute Hyperkalemia Acute Osteoarthritis of right hip Acute Pelvic fracture Acute Pulmonary hypertension Acute S/P prosthetic total arthroplasty of the hip Acute Type 2 diabetes mellitus Acute Type 2 diabetes mellitus Acute
[2018-05-22] MEDS ORDERED: POLYETHYLENE GLYCOL 3350 17 GM PKT PO PRN (01:12)
[2018-05-22] MEDS ORDERED: LACTULOSE 20 GM/30 ML UDCUP PO PRN (01:12)
[2018-05-22] MEDS ORDERED: BISACODYL 10 MG SUPP PR PRN ×2 (01:12→13:03)
[2018-05-22] MEDS ORDERED: MAGNESIUM HYDROXIDE 30 ML UDCUP PO PRN (01:12)
[2018-05-22] MEDS: NS 1,000 ML IV SCH ×2 (01:56→09:02)
--- NOTE | 2018-05-22 02:37 | GHP ---
DATE OF ADMISSION: 05/21/2018 HISTORY OF PRESENT ILLNESS: The patient is an 87-year-old male with multiple medical problems, who was brought to the emergency department tonight from [place] due to hypoxia and refusal to wear oxygen. Two weeks ago, he was transferred from [facility] to [place] for long- term care. Per his son, he was doing relatively well at that time. He was subsequently given [place] for pain and has been going downhill since then. Mental status has diminished. He had been getting 3-4 tablets per day, but that was decreased to 1 daily a couple of days ago, but his mental status has remained poor. A couple of days ago, he was also started on Levaquin 750 mg every 48 hours for possible left lung pneumonia. He was due for a dose tonight around 7 p.m., but did not receive it prior to coming to the emergency department. In the ED, he is normotensive. Oxygen saturation is 99% on 4 L. EKG shows a paced rhythm. Chest x-ray is consistent with left lower lobe pneumonia. White blood cell count is mildly elevated with neutrophilia. Hemoglobin 8.5, hematocrit 28.7, platelets 117. Sodium 149, potassium 5.5, BUN 104, creatinine 2.8. Lactic acid 1.4. BNP 24,700. Initial troponin 0.321. Followup troponin 0.3. His sons are with him here tonight and are requesting intervention such as antibiotics, fluids, feeding tube if needed for 1 week only, noninvasive positive airway pressure, but no CPR, intubation, or ICU care. The patient has been in and out of the hospital, rehab care centers, and long-term care centers since August 2017 and has not been able to return home due to his high care needs. 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 MEDICATIONS: Lotrisone cream, insulin glargine 19 units subcutaneously daily, lactobacillus capsule 3 times daily, Levaquin 750 mg p.o. every 48 hours, Keppra 500 mg b.i.d., LubriFresh ointment 1 drop in both eyes twice a day, melatonin 3 mg at bedtime, metoprolol tartrate 12.5 mg daily, montelukast 10 mg daily, [place] 5/325 one tablet daily as needed, pantoprazole 40 mg daily, prednisone 10 mg daily, Probiotic daily, Sennosides docusate sodium daily, tramadol 50 mg q.i.d. p.r.n., Tylenol Extra Strength 500 mg 2 every 8 hours as needed. ALLERGIES: Furosemide. SURGICAL HISTORY: Mitral valve replacement, hip surgery. FAMILY HISTORY: Brother with coronary artery disease, status post stent. His father of an aneurysm at the age of 84. His mother at age 72 from diabetes. He has 7 children. SOCIAL HISTORY: He is . He is a nonsmoker and a nondrinker currently. REVIEW OF SYSTEMS: Was not obtainable. By report, there is no history of fever or chills. Per his son, he did have an episode of vomiting earlier today. There have been no reports of chest pain. PHYSICAL EXAMINATION: VITAL SIGNS: Blood pressure 133/68, heart rate 98, respiratory rate 19, O2 saturation 100% on 4 L temperature 36.9. GENERAL: He is chronically ill-appearing, somewhat somnolent, though will awaken briefly before becoming more somnolent. He is not answering questions. HEENT: Scalp with multiple squamous cell carcinoma lesions, including areas of exposed calvarium. Eyelids with mild erythema. Oral cavity with poor dentition. NECK : No masses or adenopathy. LUNGS: I was unable to obtain a good exam. Per ED exam, bilateral rales noted, worse on the left. CARDIOVASCULAR: Mildly tachycardic. Regular. No murmur noted. ABDOMEN: Normal bowel sounds. Soft and nontender. Midline hernia. : Caceres catheter in place. EXTREMITIES: Left upper extremity is edematous, wrapped in compression bandage which is moist. Bilateral lower extremities with mild edema. SKIN: His right cheek has a darkened area that comes and goes per son. Erythematous rash on left neck , left axilla, and over sacrum. He has a significant wound on his right buttock. Skin is dry and flaking. NEUROLOGIC: No focal abnormalities noted other than decreased mental status. Verbalizes at times, but is not understandable. PSYCHIATRIC: No agitation. ASSESSMENT AND PLAN: 1. Pneumonia. He was placed on Levaquin 05/19/2018 for left lower lobe pneumonia and is due tonight for a dose. He did have some vomiting earlier today, so we will give dose IV. White count is only minimally elevated, possibly related to previous Levaquin dose. He is afebrile, but hypoxic. 2. Decreased mental status. Suspect this is largely related to [place] as he has not tolerated narcotics well in the past. Dose has been decrease in the last couple of days, but he is still not himself. Infection and dehydration likely contributing as well. 3. Dehydration. Per his son, he has not been drinking much at all. Sodium, potassium, BUN, and creatinine are all elevated consistent with dehydration. Will hydrate. 4. Congestive heart failure. Markedly elevated BNP. He was given a dose of Lasix and Bumex in the emergency department, but does not actually appear fluid overloaded. 5. Elevated troponin. Suspect this is stress related. 6. Chronic renal insufficiency. Creatinine elevated above normal, likely secondary to dehydration. 7. Anemia. The patient has chronic anemia, severity unknown. 8. Diabetes mellitus. On insulin. 9. Bullous pemphigoid, on prednisone. 10. Cutaneous candidiasis. Has been on Lotrisone, so will continue. 11. Gastroesophageal reflux disease. On pantoprazole. 12. Hypertension. On metoprolol. 13. Seizure. Had 2-3 seizures during recent hospitalization at [facility] and is now on Keppra, so we will continue this. 14. Buttock wound. Will ask Wound Care to see. 15. Deep vein thrombosis prophylaxis. Lovenox. 16. Disposition. Will admit to observation per discussion with his sons. Hopefully he will improve relatively quickly and return to [place]. If he does not, they are looking at initiating hospice care at [facility] on his return. /[id number]/MODL MTDD
[2018-05-22 03:42] LABS: PLATELET COUNT 104 10^3/uL (150-400)
[2018-05-22] MEDS: ENOXAPARIN 30 MG/0.3 ML SYR SC SCH (09:02)
[2018-05-22] MEDS: SENNOSIDES/DOCUSATE SODIUM TAB PO SCH ×2 (09:02→23:48)
--- NOTE | 2018-05-22 10:05 | WOCRNPDOC ---
WOCRN Advanced Assessment Note - Skin Integrity Problem, Advanced Assess Right Sacrum Pressure Injury Dressing Type: Mepilex Border Exudate Amount: Scant Exudate Characteristic(s): Serous Integumentary Issue Intervention: Dressing Changed Rubi Wound Tissue: Blanching, Erythema, Scarred Wound Bed Color: [place] Wound Bed Constitution: Granulation Tissue (pale 100%) Wound Edges: Attached, Irregular, Scarred, Thick Site Measurement - Head-to-Toe Length X Width X Depth (cm): 1.5x1.5x0.3, from 4 to 10 oclock 7.8 cm length Pressure Injury Stage: Stage 4 Pressure Injury Present on Admit: Yes Skin Integrity Problem Comment: Likely was a stage 4 pressure injury that has been surgically addressed at some point. Unknown history of this wound. It is healing, albeit slowly and is still a full thickness wound. Patient would benefit from air fluidized surface. ODELL Mars in room for care. Wound care will follow.
[2018-05-22] MEDS: PIPERACILLIN/TAZO 2.25 GM/DEX 50 ML IV SCH ×2 (12:44→17:20)
[2018-05-22] MEDS ORDERED: ACETAMINOPHEN 500 MG TAB PO PRN (13:03)
--- NOTE | 2018-05-22 13:15 | SOAPPROG ---
SOAP Progress Note Assessment/Plan: Assessment: [place] patient with multiple medical issues. Probable some addisonian symptoms due to his halfway steroid use. Plan: bump steroids. Regular diet as he has not been eating the puree diet. Continue antibiotics. 05/22/18 13:14 Subjective: Awakens and answers simple questions. Continues to shout out every 15 to 30 seconds with pain, however when askked where his pain is located, he sais everywhere or lower back. Objective: Vital Signs Temp Pulse Resp BP Pulse Ox 97.9 F 9 L 17 111/45 L 93 05/22/18 11:11 05/22/18 11:11 05/22/18 11:11 05/22/18 11:11 05/22/18 11:11 Laboratory Results 05/22/18 03:35 05/22/18 03:35 05/21/18 05/22/18 05/23/18 05:59 05:59 05:59 Intake Total 776 Output Total 550 Balance 226 PT 13.6 SEC (12.0-15.0) 05/21/18 20:40 INR 1.02 (0.83-1.16) 05/21/18 20:40 He episotically has low oxygen. CXR demonstrates possible CHF or pneumonia. ICD10 Worksheet Patient Problems: Problems Problem Status Onset CAD (coronary artery disease) Acute Chronic kidney disease Acute Hypoxia Acute Pneumonia Acute Chronic Disease Management/Transitional Care Program Active Cellulitis Acute Closed right acetabular fracture Acute Edema Acute Elevated troponin Acute Fall on same level from tripping as cause of accidental injury Acute Fracture of right olecranon process Acute Hyperkalemia Acute Osteoarthritis of right hip Acute Pelvic fracture Acute Pulmonary hypertension Acute S/P prosthetic total arthroplasty of the hip Acute Type 2 diabetes mellitus Acute Type 2 diabetes mellitus Acute
--- NOTE | 2018-05-22 14:15 | ASMTCMCOM ---
CM Note CM Note Notes: 05/22/2018 Case Management Note Pt admitted for hypoxia, elevated trop, CHF, and renal failure. Met w/pt and son Jordan [phone]. Pt slept through the conversation and was comforted by music played by Jordan on his phone. Jordan confirmed previous notes stating that family is ready for hospice if Dr. Hendricks feels it's "that time". Phone call from Kelly at [facility] who stated has been recommending hospice for several weeks. Jordan confirmed and stated family was uncertain of benefits of one agency over the other. Confirmed with Kelly from there are three contracted hospice agencies: [facility], [facility] and [facility]. Will await instructions from MD and family prior to sending referrals. Case Management d/c poc: return to [facility]. Case Management to follow. Date Signed: 05/22/2018 02:14 PM Electronically Signed By:Cassy Vera RN
[2018-05-22] MEDS: ACETAMINOPHEN 325 MG TAB PO SCH ×2 (15:18→18:30)
[2018-05-22] MEDS: methylPREDNISolone SOD SUCC 40 MG/ML VIAL IVP SCH (15:18)
[2018-05-22] MEDS: predniSONE 10 MG TAB PO SCH (15:18)
[2018-05-22] MEDS: levETIRAcetam 500 MG TAB PO SCH (15:18)
[2018-05-22] MEDS: PANTOPRAZOLE SODIUM 40 MG TAB PO SCH (15:24)
[2018-05-22] MEDS: INSULIN LISPRO 100 UNIT/ML SC SCH (17:20)
[2018-05-22] MEDS: traMADol 50 MG TAB PO SCH ×2 (17:21→23:47)
[2018-05-22] MEDS: INSULIN GLARGINE 100 UNITS/ML UNIT SC SCH (17:21)
[2018-05-22] MEDS: MELATONIN 3 MG TAB PO PRN (23:48)
[2018-05-22] MEDS: PETROLAT,WHT/MIN OIL/SOD CHL 3.5 GM OPHT.OINT EACHEYE SCH (23:59)
[2018-05-23] MEDS: PIPERACILLIN/TAZO 2.25 GM/DEX 50 ML IV SCH ×5 (01:09→23:49)
[2018-05-23] MEDS: methylPREDNISolone SOD SUCC 40 MG/ML VIAL IVP SCH ×3 (01:09→20:23)
[2018-05-23] MEDS: ACETAMINOPHEN 325 MG TAB PO SCH ×4 (01:10→20:23)
[2018-05-23 04:28] LABS: PLATELET COUNT 98 10^3/uL (150-400)
[2018-05-23] MEDS: predniSONE 10 MG TAB PO SCH (05:53)
[2018-05-23] MEDS: levETIRAcetam 500 MG TAB PO SCH ×2 (05:53→15:03)
[2018-05-23] MEDS: traMADol 50 MG TAB PO SCH ×4 (05:53→23:38)
[2018-05-23] MEDS: METOPROLOL TARTRATE 25 MG TAB PO SCH (05:53)
[2018-05-23] MEDS ORDERED: SENNOSIDES/DOCUSATE SODIUM TAB PO SCH (06:00)
--- NOTE | 2018-05-23 07:09 | PDMN ---
Medical Necessity Medical necessity: Pt meets INPT criteria per MD as of 05/22/18 and [facility] M-282 Pneumonia (LOS >2 MN for ongoing eval/mgmt of pneumonia req. IVABx, decreased mental status, dehydration, CHF, elevated troponin, chronic renal insufficiency , anemia, DM, htn).
[2018-05-23] MEDS: INSULIN LISPRO 100 UNIT/ML SC SCH ×3 (07:57→18:48)
[2018-05-23] MEDS: ALLOPURINOL 100 MG TAB PO SCH (09:31)
[2018-05-23] MEDS: PANTOPRAZOLE SODIUM 40 MG TAB PO SCH (09:31)
[2018-05-23] MEDS: SENNOSIDES/DOCUSATE SODIUM TAB PO SCH ×2 (09:31→20:23)
[2018-05-23] MEDS: BUMETANIDE 1 MG TAB PO SCH ×2 (09:31→20:23)
[2018-05-23] MEDS: MONTELUKAST SODIUM 10 MG TAB PO SCH (09:31)
[2018-05-23] MEDS: ENOXAPARIN 30 MG/0.3 ML SYR SC SCH (09:35)
[2018-05-23] MEDS: CETIRIZINE 10 MG TAB PO SCH (09:38)
[2018-05-23] MEDS: DIGOXIN 125 MCG TAB PO SCH (09:39)
[2018-05-23] MEDS: MULTIVITAMINS W-MINERALS 1 EACH TAB PO SCH (09:54)
[2018-05-23] MEDS: PETROLAT,WHT/MIN OIL/SOD CHL 3.5 GM OPHT.OINT EACHEYE SCH ×2 (09:54→20:29)
[2018-05-23] MEDS ORDERED: BUMETANIDE 0.5 MG PO SCH (11:00)
--- NOTE | 2018-05-23 13:30 | SOAPPROG ---
SOAP Progress Note Assessment/Plan: Assessment: [place] patient with multiple medical issues. Probable some addisonian symptoms due to his long-term steroid use. neumonia and CHF, imroving. Plan: Continue antibiotics. Continue steroids. Consider spending some time up in chair. 05/22/18 13:14 05/23/18 13:29 Subjective: MOre alert today. Not crying out in pain. Responds to questions. Objective: Vital Signs Temp Pulse Resp BP Pulse Ox 97.5 F 84 17 120/63 92 05/23/18 12:00 05/23/18 12:00 05/23/18 12:00 05/23/18 12:00 05/23/18 12:00 Laboratory Results 05/23/18 03:55 05/23/18 03:55 05/22/18 05/23/18 05/24/18 05:59 05:59 05:59 Intake Total 950 Output Total 1025 Balance -75 PT 13.6 SEC (12.0-15.0) 05/21/18 20:40 INR 1.02 (0.83-1.16) 05/21/18 20:40 CXR with possible mild improvement. Lungs with scattered rhonchi. Blood work improved. ICD10 Worksheet Patient Problems: Problems Problem Status Onset CAD (coronary artery disease) Acute Chronic kidney disease Acute Hypoxia Acute Pneumonia Acute Chronic Disease Management/Transitional Care Program Active Cellulitis Acute Closed right acetabular fracture Acute Edema Acute Elevated troponin Acute Fall on same level from tripping as cause of accidental injury Acute Fracture of right olecranon process Acute Hyperkalemia Acute Osteoarthritis of right hip Acute Pelvic fracture Acute Pulmonary hypertension Acute S/P prosthetic total arthroplasty of the hip Acute Type 2 diabetes mellitus Acute Type 2 diabetes mellitus Acute
[2018-05-23] MEDS: INSULIN GLARGINE 100 UNITS/ML UNIT SC SCH (15:02)
[2018-05-23] MEDS: WARFARIN SODIUM 2 MG TAB PO SCH (15:03)
[2018-05-24] MEDS: ACETAMINOPHEN 325 MG TAB PO SCH ×4 (02:34→21:28)
[2018-05-24] MEDS: PIPERACILLIN/TAZO 2.25 GM/DEX 50 ML IV SCH ×3 (04:52→17:15)
[2018-05-24] MEDS: ALLOPURINOL 100 MG TAB PO SCH (04:53)
[2018-05-24] MEDS: levETIRAcetam 500 MG TAB PO SCH ×2 (04:53→17:17)
[2018-05-24] MEDS: PANTOPRAZOLE SODIUM 40 MG TAB PO SCH (04:53)
[2018-05-24] MEDS: METOPROLOL TARTRATE 25 MG TAB PO SCH (04:53)
[2018-05-24] MEDS: predniSONE 10 MG TAB PO SCH (04:53)
[2018-05-24] MEDS: MULTIVITAMINS W-MINERALS 1 EACH TAB PO SCH (04:53)
[2018-05-24] MEDS: CETIRIZINE 10 MG TAB PO SCH (04:54)
[2018-05-24] MEDS: MONTELUKAST SODIUM 10 MG TAB PO SCH (04:54)
[2018-05-24] MEDS: BUMETANIDE 1 MG TAB PO SCH ×2 (08:42→21:27)
[2018-05-24] MEDS: SENNOSIDES/DOCUSATE SODIUM TAB PO SCH ×2 (08:42→21:27)
[2018-05-24] MEDS: ENOXAPARIN 30 MG/0.3 ML SYR SC SCH (08:42)
[2018-05-24] MEDS: methylPREDNISolone SOD SUCC 40 MG/ML VIAL IVP SCH ×2 (08:42→21:27)
[2018-05-24] MEDS: INSULIN LISPRO 100 UNIT/ML SC SCH ×3 (08:43→17:16)
[2018-05-24] MEDS: traMADol 50 MG TAB PO SCH ×4 (08:43→21:27)
[2018-05-24] MEDS: DIGOXIN 125 MCG TAB PO SCH (08:44)
[2018-05-24] MEDS: PETROLAT,WHT/MIN OIL/SOD CHL 3.5 GM OPHT.OINT EACHEYE SCH ×2 (08:52→21:30)
--- NOTE | 2018-05-24 11:55 | SOAPPROG ---
SOAP Progress Note Assessment/Plan: Assessment: [place] patient with multiple medical issues. Probable some addisonian symptoms due to his usp steroid use. pneumonia and CHF, imroving. A-fib, have restarted coumadin. Plan: Continue antibiotics. Continue steroids. Consider spending some time up in chair. PT OT 05/22/18 13:14 05/23/18 13:29 05/24/18 11:54 Subjective: CO pain, however it is in his R elbow now. Objective: Vital Signs Temp Pulse Resp BP Pulse Ox 97.7 F 94 20 129/81 H 81 L 05/24/18 07:40 05/24/18 08:44 05/24/18 07:40 05/24/18 07:40 05/24/18 07:40 Laboratory Results 05/23/18 03:55 05/23/18 03:55 05/23/18 05/24/18 05/25/18 05:59 05:59 05:59 Intake Total 950 400 Output Total 1025 850 Balance -75 -450 PT 13.6 SEC (12.0-15.0) 05/21/18 20:40 INR 1.02 (0.83-1.16) 05/21/18 20:40 Appears comfortable however he does moan with some regularity. Lungs with mild rhoc=nchi, improved from before. I and O are good. ICD10 Worksheet Patient Problems: Problems Problem Status Onset CAD (coronary artery disease) Acute Chronic kidney disease Acute Hypoxia Acute Pneumonia Acute Chronic Disease Management/Transitional Care Program Active Cellulitis Acute Closed right acetabular fracture Acute Edema Acute Elevated troponin Acute Fall on same level from tripping as cause of accidental injury Acute Fracture of right olecranon process Acute Hyperkalemia Acute Osteoarthritis of right hip Acute Pelvic fracture Acute Pulmonary hypertension Acute S/P prosthetic total arthroplasty of the hip Acute Type 2 diabetes mellitus Acute Type 2 diabetes mellitus Acute
[2018-05-24] MEDS: INSULIN GLARGINE 100 UNITS/ML UNIT SC SCH (17:15)
[2018-05-24] MEDS: WARFARIN SODIUM 2 MG TAB PO SCH (17:16)
[2018-05-24] MEDS: MELATONIN 3 MG TAB PO PRN (21:28)
[2018-05-25] MEDS: PIPERACILLIN/TAZO 2.25 GM/DEX 50 ML IV SCH ×4 (00:10→17:22)
[2018-05-25 05:03] LABS: PLATELET COUNT 90 10^3/uL (150-400)
[2018-05-25 05:15] LABS: INR 1.1 (0.83-1.16); PROTIME(PATIENT) 14.4 SEC (12.0-15.0)
[2018-05-25] MEDS: ACETAMINOPHEN 325 MG TAB PO SCH ×4 (05:19→21:39)
[2018-05-25] MEDS: ALLOPURINOL 100 MG TAB PO SCH (05:20)
[2018-05-25] MEDS: MULTIVITAMINS W-MINERALS 1 EACH TAB PO SCH (05:20)
[2018-05-25] MEDS: CETIRIZINE 10 MG TAB PO SCH (05:20)
[2018-05-25] MEDS: levETIRAcetam 500 MG TAB PO SCH ×2 (05:20→17:01)
[2018-05-25] MEDS: PANTOPRAZOLE SODIUM 40 MG TAB PO SCH (05:20)
[2018-05-25] MEDS: METOPROLOL TARTRATE 25 MG TAB PO SCH (05:20)
[2018-05-25] MEDS: MONTELUKAST SODIUM 10 MG TAB PO SCH (05:20)
--- NOTE | 2018-05-25 08:29 | SOAPPROG ---
SOAP Progress Note Assessment/Plan: Assessment: [place] patient with multiple medical issues. Probable some addisonian symptoms due to his long-term steroid use. pneumonia and CHF, imroving. A-fib, have restarted coumadin. Plan: Continue antibiotics. Continue to taper steroids. Consider spending some time up in chair. PT OT 05/22/18 13:14 05/23/18 13:29 05/24/18 11:54 05/25/18 08:28 Subjective: Painis better. Objective: Vital Signs Temp Pulse Resp BP Pulse Ox 97.6 F 80 14 127/74 H 91 L 05/25/18 07:30 05/25/18 07:30 05/25/18 07:30 05/25/18 07:30 05/25/18 07:30 Laboratory Results 05/25/18 04:30 05/25/18 04:30 05/24/18 05/25/18 05/26/18 05:59 05:59 05:59 Intake Total 400 1210 Output Total 850 700 Balance -450 510 PT 14.4 SEC (12.0-15.0) 05/25/18 04:30 INR 1.10 (0.83-1.16) 05/25/18 04:30 More responsive to questions today. CO less pain. Lungs without rhonchi today. No edema. Labs improved. INR still usbtherapeutic. ICD10 Worksheet Patient Problems: Problems Problem Status Onset CAD (coronary artery disease) Acute Chronic kidney disease Acute Hypoxia Acute Pneumonia Acute Chronic Disease Management/Transitional Care Program Active Cellulitis Acute Closed right acetabular fracture Acute Edema Acute Elevated troponin Acute Fall on same level from tripping as cause of accidental injury Acute Fracture of right olecranon process Acute Hyperkalemia Acute Osteoarthritis of right hip Acute Pelvic fracture Acute Pulmonary hypertension Acute S/P prosthetic total arthroplasty of the hip Acute Type 2 diabetes mellitus Acute Type 2 diabetes mellitus Acute
[2018-05-25] MEDS: INSULIN LISPRO 100 UNIT/ML SC SCH ×3 (09:23→19:06)
--- NOTE | 2018-05-25 09:41 | ECHO ---
[email or web address] [address] Main: [phone] Fax: [email or web address] Echocardiogram Name: DAFNE ROGEL MR#: [id number] Study Date: 05/25/2018 Study Time: 07:48 AM Date of : 1930 Age: 87 year(s) Height: 170.2 cm (67 in.) Weight: 70.76 kg (156 lb.) BSA: 1.82 m2 Gender: Male Examination: Echo Indication: CHF, Eval overall cardiac function, Hx MRSA Image Quality: Technically Difficult Contrast: Requested by: Semaj Hendricks BP: 124 mmHg/74 mmHg Heart Rate: Rhythm: Pacemaker rhythm Indication: CHF, Eval overall cardiac function, Hx MRSA Procedure Staff Construction Project Coordinator: Nile Kemp RDCS Reading Physician: Batsheva Quinn MD Requesting Provider: Semaj Hendricks Conclusions: Normal size left ventricle. Global hypercontractility of the left ventricle. EF is 65 %. Normal size right ventricle. Normal RV function. There is a pacemaker lead noted in the right ventricle. The left atrium is mildly dilated. The right atrium is mildly dilated. A bioprosthetic mitral valve is in place.. No MV prosthesis regurgitation. The pulmonary artery pressure is normal. Mildly dilated aortic root measuring 4.1cm.. Compared with 09/12/2017 mean gradient across the bioprosthetic mitral valve is slightly increased. Previously this was 4 mm of mercury. Other findings are similar. Measurements: Chambers Valvular Assessment AV/MV Valvular Assessment TV/PV Normal Normal Normal Name Value Range Name Value Range Name Value Range IVSd (2D): 1.0 cm (0.6 cm-1.1 AV Vmax: 1.39 m/s (1 m/s-1.7 TR Vmax: 2.58 mm/s ( - ) cm) m/s) TR PGmax: 27 mmHg ( - ) LVDd (2D): 3.6 cm (4.2 cm-5.9 AV maxP mmHg ( - ) syst. PAP: 32 mmHg ( - ) cm) AV meanP mmHg ( - ) PV Vmax: 1.13 m/s (0.6 m/s-0.9 LVDs (2D): 2.4 cm (2.1 cm-4 LVOT Vmax: 0.78 m/s (0.7 m/s-1.1 m/s) cm) m/s) PV PGmax: 5 mmHg ( - ) LVPWd (2D): 0.9 cm (0.6 cm-1 DOMENICA (Vmax): 1.9 cm2 ( - ) cm) DOMENICA (VTI): 1.9 cm ( - ) LVOTd 2.1 cm 2.1 cm mm MV E Vmax: 1.52 m/s ( - ) LVEF (2D): 65 (>=54 %) MV A Vmax: 0.98 m/s ( - ) MV E/A: 1.55 ( - ) Patient: DAFNE ROGEL Study Date: 05/25/2018 Page 1 of 2 07:48 AM MV maxP mmHg ( - ) MV meanP mmHg ( - ) MVA (Vmax): 1.2 m/s ( - ) Continued Measurements: Chambers Valvular Assessment AV/MV Valvular Assessment TV/PV Name Value Name Value Name Value LADs Lon.2 cm MV VTI: 35.70 cm CVP (est.): 5 mmHg LA Area: 21.9 cm2 LA Volume: 74 ml LA Volume Index: 40.7 ml/m2 Findings: Left Ventricle: Normal size left ventricle. No LV hypertrophy. Global hypercontractility of the left ventricle. EF is 65 %. There is paradoxic septal motion suggestive of bundle branch block, paced cardiac rhythm, or prior cardiac surgery. Right Ventricle: Normal size right ventricle. Normal RV function. There is a pacemaker lead noted in the right ventricle. Left Atrium: The left atrium is mildly dilated. Right Atrium: The right atrium is mildly dilated. Mitral Valve: A bioprosthetic mitral valve is in place.. The mitral valve prosthesis exhibits normal function. No prosthesis stenosis. No MV prosthesis regurgitation. The mean PG is 6 mmHg.. Aortic Valve: The aortic valve is tri-leaflet and functions normally. Mild aortic cusp calcification is noted. Trivial aortic valve regurgitation. No aortic valve stenosis is present. Tricuspid Valve: Trivial tricuspid valve regurgitation. The pulmonary artery pressure is normal. Pulmonic Valve: The pulmonic valve is normal in appearance and function. Aorta: Mildly dilated aortic root measuring 4.1cm.. Pericardium: No pericardial effusion. Exam Comments: (No Signature Object) Patient: DAFNE ROGEL Study Date: 05/25/2018 Page 2 of 2 07:48 AM [id number]
[2018-05-25] MEDS: ENOXAPARIN 30 MG/0.3 ML SYR SC SCH (10:50)
[2018-05-25] MEDS: BUMETANIDE 1 MG TAB PO SCH ×2 (10:50→21:39)
[2018-05-25] MEDS: DIGOXIN 125 MCG TAB PO SCH (10:52)
[2018-05-25] MEDS: traMADol 50 MG TAB PO SCH ×4 (10:53→21:39)
[2018-05-25] MEDS: SENNOSIDES/DOCUSATE SODIUM TAB PO SCH ×2 (10:54→22:08)
[2018-05-25] MEDS: methylPREDNISolone SOD SUCC 40 MG/ML VIAL IVP SCH ×2 (11:12→21:43)
[2018-05-25] MEDS: PETROLAT,WHT/MIN OIL/SOD CHL 3.5 GM OPHT.OINT EACHEYE SCH ×2 (11:40→21:44)
--- NOTE | 2018-05-25 14:54 | ASMTCMCOM ---
CM Note CM Note Notes: Pt continues treatment. There are no current orders for hospice referral. CM will continue to follow. D/C Plan: Anitra Cardozo Date Signed: 05/25/2018 02:54 PM Electronically Signed By:Adela Chapin
[2018-05-25] MEDS: INSULIN GLARGINE 100 UNITS/ML UNIT SC SCH (17:00)
[2018-05-25] MEDS: WARFARIN SODIUM 2 MG TAB PO SCH (17:01)
[2018-05-25] MEDS: MELATONIN 3 MG TAB PO PRN (21:39)
[2018-05-26] MEDS: PIPERACILLIN/TAZO 2.25 GM/DEX 50 ML IV SCH ×4 (00:08→17:57)
[2018-05-26] MEDS: ACETAMINOPHEN 325 MG TAB PO SCH ×4 (02:28→17:56)
[2018-05-26] MEDS: METOPROLOL TARTRATE 25 MG TAB PO SCH (05:50)
[2018-05-26] MEDS: PANTOPRAZOLE SODIUM 40 MG TAB PO SCH (05:51)
[2018-05-26] MEDS: CETIRIZINE 10 MG TAB PO SCH (05:51)
[2018-05-26] MEDS: MULTIVITAMINS W-MINERALS 1 EACH TAB PO SCH (05:51)
[2018-05-26] MEDS: levETIRAcetam 500 MG TAB PO SCH ×2 (05:51→16:12)
[2018-05-26] MEDS: ALLOPURINOL 100 MG TAB PO SCH (05:51)
[2018-05-26] MEDS: MONTELUKAST SODIUM 10 MG TAB PO SCH (05:51)
[2018-05-26] MEDS: INSULIN LISPRO 100 UNIT/ML SC SCH ×3 (08:06→16:45)
[2018-05-26 08:15] LABS: INR 1.53 (0.83-1.16); PROTIME(PATIENT) 18.5 SEC (12.0-15.0)
[2018-05-26] MEDS: DIGOXIN 125 MCG TAB PO SCH (09:55)
[2018-05-26] MEDS: BUMETANIDE 1 MG TAB PO SCH ×2 (09:55→20:20)
[2018-05-26] MEDS: ENOXAPARIN 30 MG/0.3 ML SYR SC SCH (09:56)
[2018-05-26] MEDS: traMADol 50 MG TAB PO SCH ×4 (09:56→20:20)
[2018-05-26] MEDS: methylPREDNISolone SOD SUCC 40 MG/ML VIAL IVP SCH (09:57)
[2018-05-26] MEDS: PETROLAT,WHT/MIN OIL/SOD CHL 3.5 GM OPHT.OINT EACHEYE SCH ×2 (09:57→20:37)
[2018-05-26] MEDS: SENNOSIDES/DOCUSATE SODIUM TAB PO SCH ×2 (09:57→22:23)
[2018-05-26] MEDS: WARFARIN SODIUM 2 MG TAB PO SCH (16:13)
[2018-05-26] MEDS: INSULIN GLARGINE 100 UNITS/ML UNIT SC SCH (16:25)
--- NOTE | 2018-05-26 19:24 | SOAPPROG ---
SOAP Progress Note Assessment/Plan: Assessment: [place]erly patient with multiple medical issues. Probable some addisonian symptoms due to his half-way steroid use. pneumonia and CHF, imroving. A-fib, have restarted coumadin. Plan: Continue antibiotics. Continue to taper steroids. Change to oral prednisone. Increase time up in chair. PT OT. Will look at soptins for DC once he gets a little furthere on his pneumonia. 05/22/18 13:14 05/23/18 13:29 05/24/18 11:54 05/25/18 08:28 05/26/18 19:19 Subjective: More awake this evening. No complaint of pain. Objective: Vital Signs Temp Pulse Resp BP Pulse Ox 96.6 F L 92 18 124/76 H 99 05/26/18 16:00 05/26/18 16:00 05/26/18 16:00 05/26/18 16:00 05/26/18 16:00 Laboratory Results 05/25/18 04:30 05/25/18 04:30 05/25/18 05/26/18 05/27/18 05:59 05:59 05:59 Intake Total 1210 320 425 Output Total 700 825 500 Balance 510 -505 -75 PT 18.5 SEC (12.0-15.0) H 05/26/18 07:45 INR 1.53 (0.83-1.16) H 05/26/18 07:45 VS stable. Lungs without rhonchi. COR a-fib or paced. ICD10 Worksheet Patient Problems: Problems Problem Status Onset CAD (coronary artery disease) Acute Chronic kidney disease Acute Hypoxia Acute Pneumonia Acute Chronic Disease Management/Transitional Care Program Active Cellulitis Acute Closed right acetabular fracture Acute Edema Acute Elevated troponin Acute Fall on same level from tripping as cause of accidental injury Acute Fracture of right olecranon process Acute Hyperkalemia Acute Osteoarthritis of right hip Acute Pelvic fracture Acute Pulmonary hypertension Acute S/P prosthetic total arthroplasty of the hip Acute Type 2 diabetes mellitus Acute Type 2 diabetes mellitus Acute
[2018-05-26] MEDS: CHOLECALCIFEROL VIT D3 2,000 UNITS TAB/CAP PO SCH (20:17)
[2018-05-27] MEDS: ACETAMINOPHEN 325 MG TAB PO SCH ×4 (01:41→18:27)
[2018-05-27] MEDS: PIPERACILLIN/TAZO 2.25 GM/DEX 50 ML IV SCH ×4 (01:42→17:56)
[2018-05-27 04:30] LABS: PLATELET COUNT 106 10^3/uL (150-400)
[2018-05-27 04:36] LABS: INR 1.89 (0.83-1.16); PROTIME(PATIENT) 21.8 SEC (12.0-15.0)
[2018-05-27] MEDS: D50W 25 GM/50 ML SYR IVP PRN ×3 (05:24→05:49)
[2018-05-27] MEDS: ALLOPURINOL 100 MG TAB PO SCH (08:19)
[2018-05-27] MEDS: CETIRIZINE 10 MG TAB PO SCH (08:20)
[2018-05-27] MEDS: MULTIVITAMINS W-MINERALS 1 EACH TAB PO SCH (08:21)
[2018-05-27] MEDS: PANTOPRAZOLE SODIUM 40 MG TAB PO SCH (08:22)
[2018-05-27] MEDS: levETIRAcetam 500 MG TAB PO SCH ×2 (08:22→16:42)
[2018-05-27] MEDS: INSULIN LISPRO 100 UNIT/ML SC SCH ×2 (08:23→12:44)
[2018-05-27] MEDS: BUMETANIDE 1 MG TAB PO SCH ×2 (08:29→22:18)
[2018-05-27] MEDS: CHOLECALCIFEROL VIT D3 2,000 UNITS TAB/CAP PO SCH (08:30)
[2018-05-27] MEDS: predniSONE 20 MG TAB PO SCH ×2 (08:31→17:54)
[2018-05-27] MEDS: traMADol 50 MG TAB PO SCH ×4 (08:33→22:16)
[2018-05-27] MEDS: METOPROLOL TARTRATE 25 MG TAB PO SCH (08:34)
[2018-05-27] MEDS: MONTELUKAST SODIUM 10 MG TAB PO SCH (08:35)
[2018-05-27] MEDS: ENOXAPARIN 30 MG/0.3 ML SYR SC SCH (08:36)
[2018-05-27] MEDS: PETROLAT,WHT/MIN OIL/SOD CHL 3.5 GM OPHT.OINT EACHEYE SCH (08:39)
[2018-05-27] MEDS: SENNOSIDES/DOCUSATE SODIUM TAB PO SCH ×2 (08:40→22:11)
[2018-05-27] MEDS: DIGOXIN 125 MCG TAB PO SCH (09:25)
--- NOTE | 2018-05-27 12:53 | SOAPPROG ---
SOAP Progress Note Assessment/Plan: Assessment: Elederly patient with multiple medical issues. Probable some addisonian symptoms due to his custodial steroid use. pneumonia and CHF, imroving. A-fib, have restarted coumadin. Hypoglycemia last night. Plan: Continue antibiotics. Continue to taper steroids. Change to oral prednisone. Increase time up in chair. PT OT. Will look at soptins for DC once he gets a little furthere on his pneumonia. Will reduce insulin. 05/22/18 13:14 05/23/18 13:29 05/24/18 11:54 05/25/18 08:28 05/26/18 19:19 05/27/18 12:53 Subjective: No complaint. EAting with assistance. Was able to bring spon to mouth with significant coaching. Objective: Vital Signs Temp Pulse Resp BP Pulse Ox 96.3 F L 80 15 117/56 L 97 05/27/18 11:35 05/27/18 11:35 05/27/18 11:35 05/27/18 11:35 05/27/18 11:35 Laboratory Results 05/27/18 03:45 05/27/18 03:45 05/26/18 05/27/18 05/28/18 05:59 05:59 05:59 Intake Total 320 575 Output Total 825 800 Balance -505 -225 PT 21.8 SEC (12.0-15.0) H 05/27/18 03:45 INR 1.89 (0.83-1.16) H 05/27/18 03:45 CXR improved. Glucsoe down to 20 last night. Edema resolved in legs. Renal functions continue to improve. ICD10 Worksheet Patient Problems: Problems Problem Status Onset CAD (coronary artery disease) Acute Chronic kidney disease Acute Hypoxia Acute Pneumonia Acute Chronic Disease Management/Transitional Care Program Active Cellulitis Acute Closed right acetabular fracture Acute Edema Acute Elevated troponin Acute Fall on same level from tripping as cause of accidental injury Acute Fracture of right olecranon process Acute Hyperkalemia Acute Osteoarthritis of right hip Acute Pelvic fracture Acute Pulmonary hypertension Acute S/P prosthetic total arthroplasty of the hip Acute Type 2 diabetes mellitus Acute Type 2 diabetes mellitus Acute
[2018-05-27] MEDS ORDERED: D50W 25 GM/50 ML SYR IVP PRN ×2 (12:57)
--- NOTE | 2018-05-27 14:59 | CPEKG ---
Test Reason : OPEN Blood Pressure : / mmHG Vent. Rate : 096 BPM Atrial Rate : 000 BPM P-R Int : 384 ms QRS Dur : 087 ms QT Int : 308 ms P-R-T Axes : -19 016 178 degrees QTc Int : 390 ms Ventricular-paced complexes Prolonged PA interval Low voltage, extremity leads Nonspecific T abnormalities, lateral leads Confirmed by Sheri Heredia ([id number]) on 05/27/2018 2:58:29 PM Referred By: Confirmed By:Sheri Heredia
--- NOTE | 2018-05-27 15:32 | ASMTCMCOM ---
CM Note CM Note Notes: 05/27/2018 Case Management Note Discussed w/PT. Pt is not PT appropriate and has been discharged from service. Discussed with RN. D/C date is unclear. Case Management needs guidance from MD about anticipated d/c date. Case Management needs guidance for palliative order vs hospice order from MD. [facility] [employer] [facility] [employer] from [facility] visited with patient today. [facility] able to meet all care needs of pt. Case Management d/c poc: return to [facility]. Case Management to follow. Date Signed: 05/27/2018 03:31 PM Electronically Signed By:Cassy Vera RN
[2018-05-27] MEDS: WARFARIN SODIUM 2 MG TAB PO SCH (16:38)
[2018-05-27] MEDS: INSULIN GLARGINE 100 UNITS/ML UNIT SC SCH (16:49)
[2018-05-28] MEDS: ACETAMINOPHEN 325 MG TAB PO SCH ×4 (01:48→20:55)
[2018-05-28] MEDS: MELATONIN 3 MG TAB PO PRN (01:49)
[2018-05-28] MEDS: PIPERACILLIN/TAZO 2.25 GM/DEX 50 ML IV SCH ×4 (02:01→17:15)
[2018-05-28] MEDS: PETROLAT,WHT/MIN OIL/SOD CHL 3.5 GM OPHT.OINT EACHEYE SCH ×3 (02:33→21:04)
[2018-05-28 04:47] LABS: INR 2.8 (0.83-1.16); PROTIME(PATIENT) 29.4 SEC (12.0-15.0)
[2018-05-28] MEDS: METOPROLOL TARTRATE 25 MG TAB PO SCH (06:38)
[2018-05-28] MEDS: predniSONE 20 MG TAB PO SCH (06:40)
[2018-05-28] MEDS: MULTIVITAMINS W-MINERALS 1 EACH TAB PO SCH (06:41)
[2018-05-28] MEDS: MONTELUKAST SODIUM 10 MG TAB PO SCH (06:41)
[2018-05-28] MEDS: levETIRAcetam 500 MG TAB PO SCH ×2 (06:41→17:05)
[2018-05-28] MEDS: ALLOPURINOL 100 MG TAB PO SCH (06:41)
[2018-05-28] MEDS: PANTOPRAZOLE SODIUM 40 MG TAB PO SCH (06:41)
[2018-05-28] MEDS: CETIRIZINE 10 MG TAB PO SCH (06:41)
--- NOTE | 2018-05-28 08:47 | SOAPPROG ---
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 I awoke him from a deep sleep. Voice gravely and hard to understand. Underlying hearing loss complicates communication. Patient denies complaints. Objective: Vital Signs Temp Pulse Resp BP Pulse Ox 36.6 C 87 13 91/49 L 93 05/28/18 07:30 05/28/18 07:30 05/28/18 07:30 05/28/18 07:30 05/28/18 07:30 Laboratory Results 05/27/18 03:45 05/27/18 03:45 05/27/18 05/28/18 05/29/18 05:59 05:59 05:59 Intake Total 575 370 Output Total 800 525 Balance -225 -155 PT 29.4 SEC (12.0-15.0) H 05/28/18 03:55 INR 2.80 (0.83-1.16) H 05/28/18 03:55 Gen: tired, frail HEENT: scalp wound are dry, but impressively sizeable Lungs: limited cough effort. CXR yesterday with improved aeration. Anterior breath sounds clear Heart: paced, with some irregularity Abd: large central non-tender hernia LE's protected in boots, less edema WBC 20 (7) Hgb 9.9 Cr 2.54 BUN 76 Na+ 149 from yesterday ICD10 Worksheet Patient Problems: Problems Problem Status Onset CAD (coronary artery disease) Acute Chronic kidney disease Acute Hypoxia Acute Pneumonia Acute Chronic Disease Management/Transitional Care Program Active Cellulitis Acute Closed right acetabular fracture Acute Edema Acute Elevated troponin Acute Fall on same level from tripping as cause of accidental injury Acute Fracture of right olecranon process Acute Hyperkalemia Acute Osteoarthritis of right hip Acute Pelvic fracture Acute Pulmonary hypertension Acute S/P prosthetic total arthroplasty of the hip Acute Type 2 diabetes mellitus Acute Type 2 diabetes mellitus Acute
[2018-05-28] MEDS ORDERED: WARFARIN SODIUM 2 MG TAB PO SCH (08:49)
[2018-05-28] MEDS: BUMETANIDE 1 MG TAB PO SCH ×2 (09:33→20:56)
[2018-05-28] MEDS: CHOLECALCIFEROL VIT D3 2,000 UNITS TAB/CAP PO SCH (09:34)
[2018-05-28] MEDS: traMADol 50 MG TAB PO SCH ×4 (09:35→20:55)
[2018-05-28] MEDS: DIGOXIN 125 MCG TAB PO SCH (09:37)
[2018-05-28] MEDS: predniSONE 10 MG TAB PO SCH ×2 (09:43→17:09)
[2018-05-28] MEDS: SENNOSIDES/DOCUSATE SODIUM TAB PO SCH ×2 (09:47→23:05)
[2018-05-28 10:46] LABS: PLATELET COUNT 72 10^3/uL (150-400)
[2018-05-28] MEDS: INSULIN GLARGINE 100 UNITS/ML UNIT SC SCH (17:02)
[2018-05-29] MEDS: PIPERACILLIN/TAZO 2.25 GM/DEX 50 ML IV SCH ×4 (00:10→18:24)
[2018-05-29] MEDS: ACETAMINOPHEN 325 MG TAB PO SCH ×4 (03:52→18:24)
[2018-05-29 04:11] LABS: PLATELET COUNT 104 10^3/uL (150-400)
[2018-05-29 04:17] LABS: INR 3.33 (0.83-1.16); PROTIME(PATIENT) 33.6 SEC (12.0-15.0)
[2018-05-29] MEDS: PANTOPRAZOLE SODIUM 40 MG TAB PO SCH (05:34)
[2018-05-29] MEDS: levETIRAcetam 500 MG TAB PO SCH ×2 (05:36→18:43)
[2018-05-29] MEDS: ALLOPURINOL 100 MG TAB PO SCH (05:40)
[2018-05-29] MEDS: MONTELUKAST SODIUM 10 MG TAB PO SCH (05:43)
[2018-05-29] MEDS: METOPROLOL TARTRATE 25 MG TAB PO SCH (05:45)
[2018-05-29] MEDS: MULTIVITAMINS W-MINERALS 1 EACH TAB PO SCH (05:49)
[2018-05-29] MEDS: CETIRIZINE 10 MG TAB PO SCH (05:49)
[2018-05-29] MEDS ORDERED: D5W NS 1,000 ML IV SCH (09:00)
[2018-05-29] MEDS: BUMETANIDE 1 MG TAB PO SCH (09:06)
[2018-05-29] MEDS: traMADol 50 MG TAB PO SCH ×4 (09:07→21:27)
[2018-05-29] MEDS: CHOLECALCIFEROL VIT D3 2,000 UNITS TAB/CAP PO SCH (09:07)
[2018-05-29] MEDS: DIGOXIN 125 MCG TAB PO SCH (09:07)
[2018-05-29] MEDS: predniSONE 10 MG TAB PO SCH ×2 (09:08→18:22)
[2018-05-29] MEDS: SENNOSIDES/DOCUSATE SODIUM TAB PO SCH ×2 (09:09→19:32)
[2018-05-29] MEDS: PETROLAT,WHT/MIN OIL/SOD CHL 3.5 GM OPHT.OINT EACHEYE SCH ×2 (09:10→21:42)
--- NOTE | 2018-05-29 09:48 | ASMTCMCOM ---
CM Note CM Note Notes: Pts case w/ Lora, charge nurse. Pts creatinine is high and will get fluids. Updates sent to [facility]. CM to follow. Plan: [facility] Date Signed: 05/29/2018 09:47 AM Electronically Signed By:LATESHA Monroe
--- NOTE | 2018-05-29 18:15 | SOAPPROG ---
SOAP Progress Note Assessment/Plan: Assessment: [place]erly patient with multiple medical issues. Probable some addisonian symptoms due to his senior living steroid use. pneumonia and CHF, imroving. A-fib, have restarted coumadin. Hypoglycemia resolved, now with a little too high glucose. Plan: Continue antibiotics. Continue to taper steroids. Change to oral prednisone. Increase time up in chair. PT OT. Will look at options for DC once he gets a little further on his pneumonia. Will follow glucose. To SNF if qualifying. 05/22/18 13:14 05/23/18 13:29 05/24/18 11:54 05/25/18 08:28 05/26/18 19:19 05/27/18 12:53 05/29/18 18:15 Subjective: A bit more alert today. No complaints. Objective: Vital Signs Temp Pulse Resp BP Pulse Ox 97.6 F 86 12 121/66 H 86 L 05/29/18 15:57 05/29/18 15:57 05/29/18 15:57 05/29/18 15:57 05/29/18 15:57 Laboratory Results 05/29/18 03:58 05/29/18 03:58 05/28/18 05/29/18 05/30/18 05:59 05:59 05:59 Intake Total 370 305 50 Output Total 525 275 Balance -155 30 50 PT 33.6 SEC (12.0-15.0) H 05/29/18 03:58 INR 3.33 (0.83-1.16) H 05/29/18 03:58 Lungs with no rales or wheezing. Buttock sore is healing well without evidence of infection. Glucose is up a bit. ICD10 Worksheet Patient Problems: Problems Problem Status Onset CAD (coronary artery disease) Acute Chronic kidney disease Acute Hypoxia Acute Pneumonia Acute Chronic Disease Management/Transitional Care Program Active Cellulitis Acute Closed right acetabular fracture Acute Edema Acute Elevated troponin Acute Fall on same level from tripping as cause of accidental injury Acute Fracture of right olecranon process Acute Hyperkalemia Acute Osteoarthritis of right hip Acute Pelvic fracture Acute Pulmonary hypertension Acute S/P prosthetic total arthroplasty of the hip Acute Type 2 diabetes mellitus Acute Type 2 diabetes mellitus Acute
[2018-05-29] MEDS: INSULIN GLARGINE 100 UNITS/ML UNIT SC SCH (18:23)
[2018-05-29] MEDS: INSULIN LISPRO 100 UNIT/ML SC SCH (18:24)
[2018-05-29] MEDS: MELATONIN 3 MG TAB PO PRN (21:27)
[2018-05-30] MEDS: PIPERACILLIN/TAZO 2.25 GM/DEX 50 ML IV SCH ×3 (00:44→13:29)
[2018-05-30] MEDS: ACETAMINOPHEN 325 MG TAB PO SCH ×4 (00:44→18:35)
[2018-05-30] MEDS: PETROLAT,WHT/MIN OIL/SOD CHL 3.5 GM OPHT.OINT EACHEYE SCH ×2 (08:00→21:38)
[2018-05-30] MEDS: CHOLECALCIFEROL VIT D3 2,000 UNITS TAB/CAP PO SCH (08:20)
[2018-05-30] MEDS: MULTIVITAMINS W-MINERALS 1 EACH TAB PO SCH (08:20)
[2018-05-30] MEDS: PANTOPRAZOLE SODIUM 40 MG TAB PO SCH (08:20)
[2018-05-30] MEDS: predniSONE 10 MG TAB PO SCH ×2 (08:21→18:36)
[2018-05-30] MEDS: MONTELUKAST SODIUM 10 MG TAB PO SCH (08:22)
[2018-05-30] MEDS: CETIRIZINE 10 MG TAB PO SCH (08:22)
[2018-05-30] MEDS: SENNOSIDES/DOCUSATE SODIUM TAB PO SCH ×2 (08:22→21:42)
[2018-05-30] MEDS: ALLOPURINOL 100 MG TAB PO SCH (08:22)
[2018-05-30] MEDS: levETIRAcetam 500 MG TAB PO SCH ×2 (08:22→21:36)
[2018-05-30] MEDS: traMADol 50 MG TAB PO SCH ×3 (08:23→21:36)
[2018-05-30] MEDS: METOPROLOL TARTRATE 25 MG TAB PO SCH (10:10)
[2018-05-30] MEDS: BUMETANIDE 1 MG TAB PO SCH (10:12)
[2018-05-30] MEDS: INSULIN LISPRO 100 UNIT/ML SC SCH ×3 (10:12→18:35)
[2018-05-30] MEDS: DIGOXIN 125 MCG TAB PO SCH (11:15)
--- NOTE | 2018-05-30 11:19 | SOAPPROG ---
BRIAN Progress Note Assessment/Plan: Assessment: 87 yo male admitted w/ pna, decreased ms, ckd -Has been on levaquin and zosyn, steroid taper, wbc better, today's labs pending as his IV stopped working and access difficult - RN working on new IV right now, sats stable, will d/c abx tomorrow to see how he does - has been improving slowly, son Tong in room and pleased w difference in how dad is doing compared to a week ago. -CHF chronic - on bumex and fluid overloaded/3rd spacing - awaiting this am's Cr - decreased UOP over last 24 hours, will increase bumex if Cr ok. Is on metoprolol 12.5 not ER once a day, will change to 6.25 bid - a fib - on coumadin, metoprolol, INR up a bit yesterday, recheck today and adjust as appropriate. - ckd - Cr up yesterday, today pending, decreased UOP, awaiting Cr today ( getting new IV, Lab unable to get blood this am). -DM - had lows 48 hours ago, now better w/ some elev, steroids decreased. -dispo - family hoping to be able to transfer to [facility] if all doing ok next week Plan: 05/30/18 11:03 05/30/18 11:22 Subjective: Prosper Fortune at bedside and is very pleased w/ how Dad is doing currently as opposed to a week ago, Mr Farias himself pretty sleepy currently Objective: Vital Signs Temp Pulse Resp BP Pulse Ox 35.9 C L 105 H 16 126/91 H 99 05/30/18 08:00 05/30/18 10:10 05/30/18 08:00 05/30/18 10:10 05/30/18 08:00 Laboratory Results 05/29/18 03:58 05/29/18 03:58 05/29/18 05/30/18 05/31/18 05:59 05:59 05:59 Intake Total 305 1540 50 Output Total 275 250 300 Balance 30 1290 -250 PT 33.6 SEC (12.0-15.0) H 05/29/18 03:58 INR 3.33 (0.83-1.16) H 05/29/18 03:58 Gen: sleepy but arousable and cooperative Heent: 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, numerous SK's Chest: decreased bs bases, coarse upper lungs CV: irreg irreg Abd: soft nt nd Ext: 2+ edema, wearing boots - Pending Discharge Pending Discharge Within 24 Hours: No ICD10 Worksheet Patient Problems: Problems Problem Status Onset CAD (coronary artery disease) Acute Hypoxia Acute Chronic kidney disease Acute Pneumonia Acute Type 2 diabetes mellitus Acute 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
[2018-05-30] MEDS ORDERED: METOPROLOL TARTRATE 25 MG TAB PO ONE (11:24)
[2018-05-30 11:37] LABS: PLATELET COUNT 109 10^3/uL (150-400)
--- NOTE | 2018-05-30 12:16 | ASMTCMCOM ---
CM Note CM Note Notes: 05/30/2018 Case Management Note Reviewed chart. Per Sumaya Win note, faxed referrals to [facility]. Will follow up if transfer is possible on Friday. Case Management d/c poc: [facility] until transfer possiblity is confirmed. Case Management to follow. Date Signed: 05/30/2018 12:15 PM Electronically Signed By:Cassy Vera RN
[2018-05-30 12:32] LABS: INR 3.96 (0.83-1.16); PROTIME(PATIENT) 38.3 SEC (12.0-15.0)
[2018-05-30] MEDS ORDERED: NS 500 ML IV ONE (14:00)
[2018-05-30] MEDS: WARFARIN SODIUM 1 MG TAB PO SCH (14:02)
[2018-05-30] MEDS: ASCORBIC ACID 500 MG TAB PO SCH (14:51)
[2018-05-30] MEDS: INSULIN GLARGINE 100 UNITS/ML UNIT SC SCH (18:35)
[2018-05-30] MEDS ORDERED: BUMETANIDE 1 MG TAB PO ONE (19:45)
[2018-05-31] MEDS: ACETAMINOPHEN 325 MG TAB PO SCH ×4 (01:21→22:34)
[2018-05-31 04:55] LABS: INR 3.09 (0.83-1.16); PROTIME(PATIENT) 31.7 SEC (12.0-15.0)
[2018-05-31] MEDS: INSULIN LISPRO 100 UNIT/ML SC SCH ×3 (09:59→18:50)
[2018-05-31] MEDS: ALLOPURINOL 100 MG TAB PO SCH (10:04)
[2018-05-31] MEDS: MONTELUKAST SODIUM 10 MG TAB PO SCH (10:04)
[2018-05-31] MEDS: levETIRAcetam 500 MG TAB PO SCH ×2 (10:04→22:34)
[2018-05-31] MEDS: CETIRIZINE 10 MG TAB PO SCH (10:05)
[2018-05-31] MEDS: PANTOPRAZOLE SODIUM 40 MG TAB PO SCH (10:05)
[2018-05-31] MEDS: predniSONE 10 MG TAB PO SCH ×2 (10:07→18:50)
[2018-05-31] MEDS: METOPROLOL TARTRATE 25 MG TAB PO SCH ×2 (10:07→22:32)
[2018-05-31] MEDS: CHOLECALCIFEROL VIT D3 2,000 UNITS TAB/CAP PO SCH (10:10)
[2018-05-31] MEDS: ASCORBIC ACID 500 MG TAB PO SCH (10:10)
[2018-05-31] MEDS: MULTIVITAMINS W-MINERALS 1 EACH TAB PO SCH (10:11)
[2018-05-31] MEDS: traMADol 50 MG TAB PO SCH ×3 (10:11→22:35)
[2018-05-31] MEDS: SENNOSIDES/DOCUSATE SODIUM TAB PO SCH ×2 (10:11→20:06)
[2018-05-31] MEDS: PETROLAT,WHT/MIN OIL/SOD CHL 3.5 GM OPHT.OINT EACHEYE SCH ×2 (10:14→22:32)
[2018-05-31] MEDS ORDERED: BUMETANIDE 1 MG/4 ML VIAL IM ONE (11:03)
--- NOTE | 2018-05-31 11:22 | SOAPPROG ---
SOAP Progress Note Assessment/Plan: Assessment: 87 yo male admitted w/ pna, decreased ms, ckd, CHF -Over last 48 hours pt declining further, Cr elev, UOP decreased, O2 sats have decreased, CXR w/ fluid overload, anemia progressed. Had long discussion w/ son this am about overall picture and progress and goals wishes. His son could see that his Dad is not doing well and seems to be taking a downward path and wanted to discuss hospice and end of life. His siblings will be flying into town this week and he would like to see what can be done for a couple days while they are coming in and to get a hospice consult ordered. He will discuss this w/ his siblings today as well and with Dr. Hendricks tomorrow am also but wanted to go ahead and start looking at options as he feels his dad is tired now and not likely to recover. Discussed w/ him his dad's dependence on people for feeding and the evaluation by PT as well. -CHF acute on chronic, CXR w/ fluid overload - will try IV bumex instead of po, will slowly transfuse 1 uprbc piggybacked by bumex either end - a fib - holding dig today w/ increased Cr/decreased clearance, holding coumadin w/ increased anemia, dark stool sent for occult testing, risk of bleeding currently outweighing risk of cva, on metoprolol dose adjusted. - ckd - Cr up again today, decreased UOP. Will be getting IV bumex today, will recheck BMP in am, suspect it will worsen further but need to address the CHF above. -DM - cont fsbs, insulin -dispo - plans changing w/ Alfred's declining health status, family would like a hospice consultation please. Will find CM to discuss. 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, numerous SK's NEck: soft Chest: coarse bs throughout CV: irreg irreg Abd: distended, + bs Ext: edematous throughout ICD10 Worksheet Patient Problems: Problems Problem Status Onset CAD (coronary artery disease) Acute Hypoxia Acute Chronic kidney disease Acute Pneumonia Acute Type 2 diabetes mellitus Acute 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
[2018-05-31] MEDS: DIGOXIN 125 MCG TAB PO SCH (13:31)
[2018-05-31] MEDS: BUMETANIDE 1 MG TAB PO SCH (13:31)
[2018-05-31] MEDS ORDERED: BUMETANIDE 1 MG/4 ML VIAL IVP ONE ×3 (13:45→18:45)
--- NOTE | 2018-05-31 18:24 | ASMTCMCOM ---
CM Note CM Note Notes: Patient declining, son would like to talk with [facility]. [facility] contacted and sent a referral. [facility] to contact [facility] and set up a time on to meet with family. Friday is the earliest [facility] can meet. Date Signed: 05/31/2018 06:23 PM Electronically Signed By:Sujatha Bull LCSW
[2018-05-31] MEDS: WARFARIN SODIUM 1 MG TAB PO SCH (18:34)
[2018-05-31] MEDS: INSULIN GLARGINE 100 UNITS/ML UNIT SC SCH (22:32)
[2018-06-01] MEDS: ACETAMINOPHEN 325 MG TAB PO SCH ×3 (01:37→15:14)
[2018-06-01] MEDS ORDERED: PHYTONADIONE 1 MG/0.5 ML INJ IM ONE (08:25)
[2018-06-01] MEDS: INSULIN LISPRO 100 UNIT/ML SC SCH ×2 (08:56→14:57)
[2018-06-01] MEDS: MONTELUKAST SODIUM 10 MG TAB PO SCH (08:59)
[2018-06-01] MEDS: predniSONE 10 MG TAB PO SCH (08:59)
[2018-06-01] MEDS: MULTIVITAMINS W-MINERALS 1 EACH TAB PO SCH (08:59)
[2018-06-01] MEDS: PANTOPRAZOLE SODIUM 40 MG TAB PO SCH (09:00)
[2018-06-01] MEDS: ALLOPURINOL 100 MG TAB PO SCH (09:00)
[2018-06-01] MEDS: CETIRIZINE 10 MG TAB PO SCH (09:00)
[2018-06-01] MEDS ORDERED: BUMETANIDE 1 MG TAB PO SCH (09:00)
[2018-06-01] MEDS: METOPROLOL TARTRATE 25 MG TAB PO SCH (09:01)
[2018-06-01] MEDS: levETIRAcetam 500 MG TAB PO SCH (09:01)
[2018-06-01] MEDS: CHOLECALCIFEROL VIT D3 2,000 UNITS TAB/CAP PO SCH (09:01)
[2018-06-01] MEDS: traMADol 50 MG TAB PO SCH ×2 (09:03→11:53)
[2018-06-01] MEDS: PETROLAT,WHT/MIN OIL/SOD CHL 3.5 GM OPHT.OINT EACHEYE SCH (09:03)
[2018-06-01] MEDS: SENNOSIDES/DOCUSATE SODIUM TAB PO SCH (09:03)
[2018-06-01 09:06] LABS: INR 2.77 (0.83-1.16); PROTIME(PATIENT) 29.2 SEC (12.0-15.0)
[2018-06-01] MEDS ORDERED: PHYTONADIONE 2.5 MG/2.5 ML ORAL UDL PO ONE (10:45)
[2018-06-01 11:06] LABS: PLATELET COUNT 120 10^3/uL (150-400)
--- NOTE | 2018-06-01 15:15 | PDIAF ---
- Diagnosis Diagnosis: pneumonia, CHF Code Status: Do Not Resuscitate - Medication Management Discharge Medications: electronically signed and located in the Home Medication List. PICC Care - Routine: N/A - Orders Services needed: Registered Nurse, Certified Case Maker, Master Seismograph Shooter Isolation Type: Contact Isolation Diet Recommendation: no restrictions on diet Diet Texture: Thin Liquids, Meds Crushed in Puree - Follow Up Care Current Providers and Referrals: DANIEL NARAYAN [Primary Care Provider] - As per Instructions
--- NOTE | 2018-06-01 15:16 | SOAPPROG ---
SOAP Progress Note Assessment/Plan: Assessment: Elederly patient with multiple medical issues. Probable some addisonian symptoms due to his retirement steroid use. pneumonia and CHF, imroving. A-fib, have restarted coumadin. Hypoglycemia resolved, now with a little too high glucose. Plan: Continue antibiotics. Continue to taper steroids. Change to oral prednisone. Increase time up in chair. PT OT. Will look at options for DC once he gets a little further on his pneumonia. Will follow glucose. To SNF if qualifying. 05/22/18 13:14 05/23/18 13:29 05/24/18 11:54 05/25/18 08:28 05/26/18 19:19 05/27/18 12:53 05/29/18 18:15 Subjective: Hospice met with patient and family. Decision for hospice has been made. Will DC to [facility]. Objective: Vital Signs Temp Pulse Resp BP Pulse Ox 97.0 F 91 16 94/50 L 96 06/01/18 11:25 06/01/18 11:25 06/01/18 11:25 06/01/18 11:25 06/01/18 11:25 Laboratory Results 06/01/18 08:33 06/01/18 08:33 05/31/18 06/01/18 06/02/18 05:59 05:59 05:59 Intake Total 860 1460 100 Output Total 400 155 Balance 460 1305 100 PT 29.2 SEC (12.0-15.0) H 06/01/18 08:33 INR 2.77 (0.83-1.16) H 06/01/18 08:33 ICD10 Worksheet Patient Problems: Problems Problem Status Onset CAD (coronary artery disease) Acute Chronic kidney disease Acute Hypoxia Acute Pneumonia Acute Chronic Disease Management/Transitional Care Program Active Cellulitis Acute Closed right acetabular fracture Acute Edema Acute Elevated troponin Acute Fall on same level from tripping as cause of accidental injury Acute Fracture of right olecranon process Acute Hyperkalemia Acute Osteoarthritis of right hip Acute Pelvic fracture Acute Pulmonary hypertension Acute S/P prosthetic total arthroplasty of the hip Acute Type 2 diabetes mellitus Acute Type 2 diabetes mellitus Acute
--- NOTE | 2018-06-01 15:42 | ASMTLACE ---
LACE Length of stay for Answers: 7-13 days current admission Acuity / Level of Answers: Yes Care: Did the patient have an inpatient admission? Comorbidities - select Answers: Chronic pulmonary disease all that apply Congestive heart failure Coronary Artery Disease Diabetes (uncontrolled or controlled) Moderate or severe liver or renal disease # of Emergency department Answers: 3-4 visits in the last 6 months Score: 22 Date Signed: 06/01/2018 03:42 PM Electronically Signed By:Cassy Vera RN
--- NOTE | 2018-06-01 15:45 | ASMTDCNOTE ---
Case Management Discharge Discharge Order Complete? Answers: Yes Patient to Obtain Answers: Other Notes: [facility] Medications Transportation Arranged Answers: Other Notes: hospice stretcher arranged by [facility] Transport will Pick (Date 06/01/2018 05:00 PM & Time) Case Management Transport Answers: Yes Notes: PCS completed Form Complete Faxed Final Orders Answers: Yes Notes: to [facility] and [facility] Agency/Facility Transfer Answers: Yes Notes: to [facility] and [facility] on Report Printed & Faxed to Receiving Agency Family Notified Answers: Yes Notes: in room Discharge Comments Notes: 06/01/2018 Case Management Note Faxed d/c orders to [facility] and [facility]. [place] arranged hospice stretcher transport. PCS form completed. RN called report. Family notified. Case Management d/c poc: [facility] with [facility] Date Signed: 06/01/2018 03:44 PM Electronically Signed By:Cassy Vera RN
[2018-06-01] MEDS: INSULIN GLARGINE 100 UNITS/ML UNIT SC SCH (17:00)
[2018-06-01 17:01] VITALS: BP 115/66
--- NOTE | 2018-06-03 09:33 | ASDISCHSUM ---
Discharge Information Plan Status:SNF Medically Cleared to Leave:05/31/2018 Discharge Date:06/01/2018 05:17 PM D/C Disposition:Hospice Facility ADT D/C Disposition:Residential Facility Projected Discharge Date:06/02/2018 11:00 AM Transportation at D/C:ALS/BLS Discharge Delay Reason: Follow-Up Date:06/02/2018 11:00 AM Discharge Slot: Final Diagnosis: Placement Information Referral Type:*Group Home/SNF Referral ID:[id number] Provider Name:Anitra Ratliff [place] Address 1[address] Address 2: City:[place] Selection Factors: State:[place] Referral Type:*Hospice Referral ID:[id number] Provider Name:[facility] Address 1:[address] Phone Number: Address 2: Fax Number: [facility]:[place] Selection Factors: State:[place] Patient Contact Information Contact Name:DANGERRIGATELY Relationship:Son Address: City:[place] Alternate Phone: [facility]/Zip Code:[place] Email: Financial Information Financial Class:Medicare Primary Plan Desc:MEDICARE INPATIENT Primary Plan Number:[id number] Secondary Plan Desc: OUT OF STATE [facility] Secondary Plan Number:[id number] Assessment Information LACE LACE Length of stay for Answers: 7-13 days current admission Acuity / Level of Answers: Yes Care: Did the patient have an inpatient admission? Comorbidities - select Answers: Chronic pulmonary disease all that apply Congestive heart failure Coronary Artery Disease Diabetes (uncontrolled or controlled) Moderate or severe liver or renal disease # of Emergency department Answers: 3-4 visits in the last 6 months Score: 22 Date Signed: 06/01/2018 03:42 PM Electronically Signed By:Cassy Vera RN [facility] CM Progress Note CM Note CM Note Notes: 05/22/2018 Case Management Note Pt admitted for hypoxia, elevated trop, CHF, and renal failure. Met w/pt and son Jordan [phone]. Pt slept through the conversation and was comforted by music played by Jordan on his phone. Jordan confirmed previous notes stating that family is ready for hospice if Dr. Hendricks feels it's "that time". Phone call from Kelly at [facility] who stated has been recommending hospice for several weeks. Jordan confirmed and stated family was uncertain of benefits of one agency over the other. Confirmed with Kelly from there are three contracted hospice agencies: [facility], [facility] and [facility]. Will await instructions from MD and family prior to sending referrals. Case Management d/c poc: return to [facility]. Case Management to follow. Date Signed: 05/22/2018 02:14 PM Electronically Signed By:Cassy Vera RN [facility] CM Progress Note CM Note CM Note Notes: Pt continues treatment. There are no current orders for hospice referral. CM will continue to follow. D/C Plan: [facility] Date Signed: 05/25/2018 02:54 PM Electronically Signed By:Adela Chapin [facility] CM Progress Note CM Note CM Note Notes: 05/27/2018 Case Management Note Discussed w/PT. Pt is not PT appropriate and has been discharged from service. Discussed with RN. D/C date is unclear. Case Management needs guidance from MD about anticipated d/c date. Case Management needs guidance for palliative order vs hospice order from MD. Aerospace Physiological Technician from [facility] visited with patient today. [facility] able to meet all care needs of pt. Case Management d/c poc: return to [facility]. Case Management to follow. Date Signed: 05/27/2018 03:31 PM Electronically Signed By:Cassy Vera RN [facility] CM Progress Note CM Note CM Note Notes: Pts case w/ Lora, charge nurse. Pts creatinine is high and will get fluids. Updates sent to [facility]. CM to follow. Plan: [facility] Date Signed: 05/29/2018 09:47 AM Electronically Signed By:LATESHA Monroe [facility] CM Progress Note CM Note CM Note Notes: 05/30/2018 Case Management Note Reviewed chart. Per [facility] note, faxed referrals to [facility]. Will follow up if transfer is possible on Friday. Case Management d/c poc: [facility] until transfer possiblity is confirmed. Case Management to follow. Date Signed: 05/30/2018 12:15 PM Electronically Signed By:Cassy Vera RN [facility] CM Progress Note CM Note CM Note Notes: Patient declining, son would like to talk with [facility]. ANDREE contacted and sent a referral. ANDREE to contact AMARIS Otto and set up a time on to meet with family. Friday is the earliest ANDREE can meet. Date Signed: 05/31/2018 06:23 PM Electronically Signed By:Sujatha Bull LCSW Case Management Discharge Plan Note Case Management Discharge Discharge Order Complete? Answers: Yes Patient to Obtain Answers: Other Notes: [facility] Medic[facility] Transportation Arranged Answers: Other Notes: hospice stretcher arranged by [facility] will Pick (Date 06/01/2018 05:00 PM & Time) Case Management Transport Answers: Yes Notes: PCS completed Form Complete Faxed Final Orders Answers: Yes Notes: to [facility] and [facility] Agency/Facility Transfer Answers: Yes Notes: to [facility] and [facility] Report Printed & Faxed to Receiving Agency Family Notified Answers: Yes Notes: in room Discharge Comments Notes: 06/01/2018 Case Management Note Faxed d/c orders to [facility] and [facility]. [facility] arranged hospice stretcher transport. PCS form completed. RN called report. Family notified. Case Management d/c poc: [facility] with [facility] Date Signed: 06/01/2018 03:44 PM Electronically Signed By:Cassy Vera RN Intervention Information Intervention Type:*Incorrect Registration Date of Service:05/22/2018 12:26 PM Patient Type:Inpatient Staff Member:Mary Alice Mcallister Hours: Discipline: Severity: Comment:
== END 2018-06-01 17:17 | DRG 193 ==
LOC: EDUNIT# → INTOOBSV 22:08 → F2W 05-22 00:17 → OBSVTOIN 05-22 14:51 → F2W 05-25 10:16
PROVIDERS: ADMIT Internal Medicine; ATTEND Internal Medicine
PROC: 30233N1 Transfusion of Nonautologous Red Blood Cells into Peripheral Vein, Percutaneous Approach (ICD-10-PCS; principal; 2018-05-31)
DX: J18.9 Pneumonia, unspecified organism (principal); L89.154 Pressure ulcer of sacral region, stage 4; L12.0 Bullous pemphigoid; I13.0 Hypertensive heart and chronic kidney disease with heart failure and stage 1 through stage 4 chronic kidney disease, or unspecified chronic kidney disease; E11.9 Type 2 diabetes mellitus without complications; N18.9 Chronic kidney disease, unspecified; I27.20 Pulmonary hypertension, unspecified; J44.9 Chronic obstructive pulmonary disease, unspecified; I50.9 Heart failure, unspecified; I25.10 Atherosclerotic heart disease of native coronary artery without angina pectoris; G40.909 Epilepsy, unspecified, not intractable, without status epilepticus; E86.0 Dehydration; D64.9 Anemia, unspecified; B37.2 Candidiasis of skin and nail; K21.9 Gastro-esophageal reflux disease without esophagitis; Z96.641 Presence of right artificial hip joint; Z96.653 Presence of artificial knee joint, bilateral; Z66 Do not resuscitate; Z79.4 Long term (current) use of insulin; Z95.0 Presence of cardiac pacemaker; Z95.4 Presence of other heart-valve replacement
CPT/HCPCS: 84484-PO; 92526-GN; 92610-GN; 96374; 97162-GP; 97167-GO; 97530-GO; 97530-GP; 97535-GO; G8978-GP-CM; G8979-GP-CK; G8980-GP-CM; G8987-GO-CN; G8988-GO-CM; G8996-GN-CJ; G8997-GN-CI; J1650; J1815; J1940; J1956; J2543; J2920; J3430; J7512; P9016; P9017